=== PATIENT | female | born 1970 | race Caucasian/White ===

== ENCOUNTER 2017-05-16 19:30 | Emergency (ER) | payer MEDICARE ==
--- NOTE | 2017-05-16 21:12 | Cat Scan Report ---
FINAL REPORT PROCEDURE: CT HEAD/BRAIN WO CON TECHNIQUE: Computerized tomography of the head was performed without contrast material. HISTORY: neuro deficits \T\lt; 6hrs or sx present upon awakening COMPARISON: No prior studies are available for comparison. FINDINGS: Skull and scalp: Normal. Paranasal sinuses: Normal. Ventricles and subarachnoid spaces: Normal. Cerebrum: No evidence of hemorrhage, acute infarction or mass . Cerebellum and brainstem: No evidence of hemorrhage, acute infarction or mass. Vasculature: Normal. Comments: None. IMPRESSION: Normal Examination
[2017-05-16 21:39] LABS: Basophils % (Auto) 0.4 % (0.0-1.8); Eosinophils % (Auto) 0.7 % (0.0-4.3); Hematocrit 43.4 % (30.3-42.9); Hemoglobin 14.8 gm/dl (10.1-14.3); Mean Corpuscular HGB Conc 34 % (30-34); Mean Corpuscular Hemoglobin 33 pg (28-32); Mean Corpuscular Volume 97 fl (79-97); Platelet Count 220 K/mm3 (140-440); Red Blood Count 4.47 M/mm3 (3.65-5.03); Red Cell Distribution Width 13.2 % (13.2-15.2); White Blood Count 8.4 K/mm3 (4.5-11.0)
[2017-05-16 21:48] LABS: INR 1.05 (0.87-1.13); Partial Thromboplastin Time 27.2 Sec. (24.2-36.6)
[2017-05-16 21:51] LABS: Anion Gap 20 mmol/L; BUN/Creatinine Ratio 12.85; Blood Urea Nitrogen 9 mg/dL (7-17); Calcium 8.8 mg/dL (8.4-10.2); Carbon Dioxide 15 mmol/L (22-30); Chloride 109.7 mmol/L (98-107); Glucose 117 mg/dL (65-100); Potassium 3.8 mmol/L (3.6-5.0); Sodium 141 mmol/L (137-145)
[2017-05-17 06:31] VITALS: BP 118/94
--- NOTE | 2017-05-17 08:07 | Emergency Department Report ---
HPI - General Chief Complaint: Neuro Symptoms/Deficit Time Seen by Provider: 05/17/17 07:52 - HPI HPI: patient with left arm pain, numbness, back pain, neck pain, for about a year but worse this week. no fever, no n/v. ED Past Medical Hx - Past Medical History Previous Medical History?: Yes Hx Congestive Heart Failure: No Hx Diabetes: No Hx Headaches / Migraines: Yes Hx Psychiatric Treatment: Yes (depression, bipolar) Hx Asthma: No Hx COPD: No 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 - Surgical History Past Surgical History?: Yes Hx Appendectomy: Yes Additional Surgical History: back surguries, previous discectomy - Family History Family history: hypertension - Social History Smoking Status: Current Every Day Smoker Substance Use Type: None - Medications Home Medications: Home Medications Medication Instructions Recorded Confirmed Last Taken Type Duloxetine HCl [Cymbalta] 120 mg PO DAILY 02/17/14 05/17/17 05/16/17 History Meloxicam [Mobic] 7.5 mg PO BID 05/24/14 05/17/17 05/16/17 History Quetiapine Fumarate [Seroquel XR] 600 mg PO QHS 05/24/14 05/17/17 05/16/17 History Armodafinil [Nuvigil] 250 mg PO QAM 07/17/14 05/17/17 05/16/17 History Milnacipran HCl [Savella] 100 mg PO BID 07/17/14 05/17/17 05/16/17 History Primidone [Mysoline] 250 mg PO BID 07/17/14 05/17/17 05/16/17 History Tapentadol [Nucynta] 75 mg PO Q6H PRN 07/17/14 05/17/17 05/16/17 History Docusate Sodium [Colace] 100 mg PO QDAY 08/26/15 05/17/17 05/16/17 History Topiramate [Topamax] 200 mg PO QDAY 08/26/15 05/17/17 05/16/17 History Vit B12/Intrins Fact/FA Cmb #2 1 each PO BID 08/26/15 05/17/17 05/16/17 History [Intrinsi [id number] Tablet] Gabapentin Enacarbil [Horizant] 300 mg PO BID #60 tab-cap 05/17/17 Unknown Rx Propranolol [Inderal] 20 mg PO BID 05/17/17 05/17/17 05/16/17 History Vilazodone Hydrochloride [Viibryd] 40 mg PO QDAY 05/17/17 05/17/17 05/16/17 History ED Review of Systems ROS: Stated complaint: PAIN LF HAND Other details as noted in HPI Comment: All other systems reviewed and negative Endocrine: no symptoms reported Gastrointestinal: as per HPI Musculoskeletal: myalgia Physical Exam - Physical Exam Vital Signs: Vital Signs 05/16/17 05/17/17 05/17/17 20:34 05:17 06:27 Temperature 98.2 F Pulse Rate 69 76 78 Respiratory 18 18 Rate Blood Pressure 119/85 130/84 O2 Sat by Pulse 100 99 Oximetry 05/17/17 06:30 Temperature Pulse Rate 78 Respiratory 20 Rate Blood Pressure 118/94 O2 Sat by Pulse 95 Oximetry Physical Exam: - General Limitations: No Limitations General appearance: alert, in no apparent distress - Head Head exam: Present: atraumatic, normocephalic - Eye Eye exam: Present: normal appearance - ENT ENT exam: Present: mucous membranes moist - Neck Neck exam: Present: normal inspection - Respiratory Respiratory exam: Present: normal lung sounds bilaterally. Absent: respiratory distress - Cardiovascular Cardiovascular Exam: Present: regular rate, normal rhythm. Absent: systolic murmur, diastolic murmur, rubs, gallop - GI/Abdominal GI/Abdominal exam: Present: soft, normal bowel sounds - Extremities Exam Extremities exam: Present: normal inspection - Back Exam Back exam: Present: normal inspection - Neurological Exam Neurological exam: Present: alert, oriented X3, CN II-XII intact - Psychiatric Psychiatric exam: Present:normal affect - Skin Skin exam: Present: warm, dry, intact, normal color. Absent: rash ED Course Vital Signs 05/16/17 05/17/17 05/17/17 20:34 05:17 06:27 Temperature 98.2 F Pulse Rate 69 76 78 Respiratory 18 18 Rate Blood Pressure 119/85 130/84 O2 Sat by Pulse 100 99 Oximetry 05/17/17 06:30 Temperature Pulse Rate 78 Respiratory 20 Rate Blood Pressure 118/94 O2 Sat by Pulse 95 Oximetry ED Medical Decision Making - Lab Data Result diagrams: 05/16/17 21:14 05/16/17 21:14 Critical care attestation.: If time is entered above; I have spent that time in minutes in the direct care of this critically ill patient, excluding procedure time. ED Disposition Clinical Impression: Left arm pain Disposition: DC-01 TO HOME OR SELFCARE Is pt being admited?: No Does the pt Need Aspirin: No Condition: Stable Prescriptions: Gabapentin Enacarbil [Horizant] 300 mg PO BID #60 tab-cap Referrals: PRIMARY CARE, [Primary Care Provider] - 3-5 Days
== END 2017-05-17 08:26 | disposition home or self-care (01) ==
LOC: ED 19:30
DX: M79.602 Pain in left arm (principal); G43.909 Migraine, unspecified, not intractable, without status migrainosus; F31.9 Bipolar disorder, unspecified; G89.29 Other chronic pain; F17.200 Nicotine dependence, unspecified, uncomplicated
CPT/HCPCS: 36415; 70450; 80048; 84484; 85025; 85610; 85670; 85730; 93005; 93010

== ENCOUNTER 2017-09-16 11:45 | Emergency (ER) | payer MEDICARE ==
[2017-09-16] MEDS ORDERED: ROCEPHIN IM ONE (15:41)
[2017-09-16] MEDS ORDERED: XYLOCAINE 1% MPF 5 mL INFILTRATI ONE (15:41)
[2017-09-16] MEDS ORDERED: ULTRAM PO ONE (15:42)
--- NOTE | 2017-09-16 16:09 | Emergency Department Report ---
ED General Adult HPI - General Chief complaint: Skin/Abscess/Foreign Body Stated complaint: drainage at umbilicus Time Seen by Provider: 09/16/17 15:36 Source: patient, family Mode of arrival: Ambulatory Limitations: Language Barrier - History of Present Illness Initial comments: to er today w pain of r thigh muscle pain of r leg also co drainage of umbilicus likely due to body habitus obese -: Gradual Location: lower extremity Severity scale (0 -10): 5 Consistency: intermittent Improves with: none Worsens with: none Associated Symptoms: denies: confusion, chest pain, cough, diaphoresis, fever/ chills, headaches, loss of appetite, malaise, nausea/vomiting, rash, seizure, shortness of breath, syncope, weakness Treatments Prior to Arrival: none - Related Data Home Medications Medication Instructions Recorded Confirmed Last Taken Duloxetine HCl [Cymbalta] 120 mg PO DAILY 02/17/14 05/17/17 05/16/17 Meloxicam [Mobic] 7.5 mg PO BID 05/24/14 05/17/17 05/16/17 Quetiapine Fumarate [Seroquel XR] 600 mg PO QHS 05/24/14 05/17/17 05/16/17 Armodafinil [Nuvigil] 250 mg PO QAM 07/17/14 05/17/17 05/16/17 Milnacipran HCl [Savella] 100 mg PO BID 07/17/14 05/17/17 05/16/17 Primidone [Mysoline] 250 mg PO BID 07/17/14 05/17/17 05/16/17 Tapentadol [Nucynta] 75 mg PO Q6H PRN 07/17/14 05/17/17 05/16/17 Docusate Sodium [Colace] 100 mg PO QDAY 08/26/15 05/17/17 05/16/17 Topiramate [Topamax] 200 mg PO QDAY 08/26/15 05/17/17 05/16/17 Vit B12/Intrinsic Fact/Folate 1 each PO BID 08/26/15 05/17/17 05/16/17 [Intrinsi [id number]-[id number] Tablet] Propranolol [Inderal] 20 mg PO BID 05/17/17 05/17/17 05/16/17 Vilazodone HCl [Viibryd] 40 mg PO QDAY 05/17/17 05/17/17 05/16/17 Previous Rx's Medication Instructions Recorded Last Taken Type Gabapentin Enacarbil [Horizant] 300 mg PO BID #60 tab-cap 05/17/17 Unknown Rx Amoxicillin 500 mg PO BID #20 capsule 09/16/17 Unknown Rx traMADol [Ultram] 50 mg PO Q6HR PRN #12 tablet 09/16/17 Unknown Rx Allergies Allergy/AdvReac Type Severity Reaction Status Date / Time No Known Allergies Allergy Verified 09/16/17 12:43 ED Review of Systems ROS: Stated complaint: ABD PAIN Other details as noted in HPI Comment: All other systems reviewed and negative Gastrointestinal: other (pain and drainage of umbilicus) Musculoskeletal: other (l thigh pain) ED Past Medical Hx - Past Medical History Hx Congestive Heart Failure: No Hx Diabetes: No Hx Headaches / Migraines: Yes Hx Psychiatric Treatment: Yes (depression, bipolar) Hx Asthma: No Hx COPD: No 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 - Surgical History Hx Appendectomy: Yes Additional Surgical History: back surguries, previous discectomy - Social History Smoking Status: Current Every Day Smoker Substance Use Type: None - Medications Home Medications: Home Medications Medication Instructions Recorded Confirmed Last Taken Type Duloxetine HCl [Cymbalta] 120 mg PO DAILY 02/17/14 05/17/17 05/16/17 History Meloxicam [Mobic] 7.5 mg PO BID 05/24/14 05/17/17 05/16/17 History Quetiapine Fumarate [Seroquel XR] 600 mg PO QHS 05/24/14 05/17/17 05/16/17 History Armodafinil [Nuvigil] 250 mg PO QAM 07/17/14 05/17/17 05/16/17 History Milnacipran HCl [Savella] 100 mg PO BID 07/17/14 05/17/17 05/16/17 History Primidone [Mysoline] 250 mg PO BID 07/17/14 05/17/17 05/16/17 History Tapentadol [Nucynta] 75 mg PO Q6H PRN 07/17/14 05/17/17 05/16/17 History Docusate Sodium [Colace] 100 mg PO QDAY 08/26/15 05/17/17 05/16/17 History Topiramate [Topamax] 200 mg PO QDAY 08/26/15 05/17/17 05/16/17 History Vit B12/Intrinsic Fact/Folate 1 each PO BID 08/26/15 05/17/17 05/16/17 History [Intrinsi [id number]-[id number] Tablet] Gabapentin Enacarbil [Horizant] 300 mg PO BID #60 tab-cap 05/17/17 Unknown Rx Propranolol [Inderal] 20 mg PO BID 05/17/17 05/17/17 05/16/17 History Vilazodone HCl [Viibryd] 40 mg PO QDAY 05/17/17 05/17/17 05/16/17 History Amoxicillin 500 mg PO BID #20 capsule 09/16/17 Unknown Rx traMADol [Ultram] 50 mg PO Q6HR PRN #12 tablet 09/16/17 Unknown Rx ED Physical Exam - General Limitations: Language Barrier General appearance: alert - Head Head exam: Present: atraumatic - Eye Eye exam: Present: PERRL, EOMI - ENT ENT exam: Present: mucous membranes moist - Neck Neck exam: Present: normal inspection - Respiratory Respiratory exam: Present: normal lung sounds bilaterally - Cardiovascular Cardiovascular Exam: Present: regular rate (90 on exam) - GI/Abdominal GI/Abdominal exam: Present: soft, normal bowel sounds, other (obese). Absent: pulsatile mass, hernia - Rectal Rectal exam: Present: deferred - External exam: Present: normal external exam - Extremities Exam Extremities exam: Present: normal inspection, full ROM, tenderness (r thigh) - Expanded Upper Extremity Exam Right General: Present: other, normal inspection Shoulder Exam: Present: normal inspection Upper Arm exam: Present: normal inspection Elbow exam: Present: normal inspection - Expanded Lower Extremity Exam Right Hip exam: Present: normal inspection Upper Leg exam: Present: tenderness Knee exam: Present: normal inspection 1 - area of pain. no hernia. over muscle. no s/s infection. no trauma. no redness. no warmth - Back Exam Back exam: Present: normal inspection, full ROM. Absent: tenderness, CVA tenderness (R), CVA tenderness (L), muscle spasm, paraspinal tenderness, vertebral tenderness - Neurological Exam Neurological exam: Present: alert, oriented X3, CN II-XII intact, normal gait, reflexes normal - Psychiatric Psychiatric exam: Present: normal affect, normal mood - Skin Skin exam: Present: warm, dry, intact - Expanded Skin Exam Expanded 1 - red and draining area in obese fold. ED Course Vital Signs 09/16/17 09/16/17 12:43 16:23 Temperature 98.9 F 97.7 F Pulse Rate 105 H 74 Respiratory 18 18 Rate Blood Pressure 121/91 Blood Pressure 121/81 [Right] O2 Sat by Pulse 96 Oximetry ED Medical Decision Making - Lab Data Result diagrams: 09/16/17 16:02 09/16/17 16:02 - Medical Decision Making see note - Differential Diagnosis ro cellulitis Critical care attestation.: If time is entered above; I have spent that time in minutes in the direct care of this critically ill patient, excluding procedure time. ED Disposition Clinical Impression: Abscess and cellulitis, Thigh pain Disposition: TO HOME OR SELFCARE Is pt being admited?: No Does the pt Need Aspirin: No Condition: Stable Instructions: Musculoskeletal Pain (ED), Cellulitis (ED) Additional Instructions: keep umbilicus clean and dry wash with soap and water; but be sure you dry the area well the fact that this is in a fold and warm area between skin folds will make it hard to heal it must be kept clean med as ordered today follow up pcp on Tuesday - see below Referrals: PRIMARY CARE, [Primary Care Provider] - 3-5 Days SANDRA MILES MD [Staff Physician] - 3-5 Days Time of Disposition: 17:27
[2017-09-16 16:15] LABS: Basophils % (Auto) 0.6 % (0.0-1.8); Eosinophils # (Auto) 0.2 K/mm3 (0.0-0.4); Eosinophils % (Auto) 2.6 % (0.0-4.3); Hematocrit 42.4 % (30.3-42.9); Hemoglobin 14.5 gm/dl (10.1-14.3); Lymphocytes % (Auto) 30.2 % (13.4-35.0); Mean Corpuscular HGB Conc 34 % (30-34); Mean Corpuscular Hemoglobin 34 pg (28-32); Mean Corpuscular Volume 98 fl (79-97); Monocytes # (Auto) 0.3 K/mm3 (0.0-0.8); Monocytes % (Auto) 4.7 % (0.0-7.3); Platelet Count 268 K/mm3 (140-440); Red Blood Count 4.32 M/mm3 (3.65-5.03); Red Cell Distribution Width 12.6 % (13.2-15.2)
[2017-09-16 16:24] VITALS: BP 121/81
[2017-09-16 16:36] LABS: Alanine Aminotransferase 16 units/L (7-56); Albumin 4.1 g/dL (3.9-5); BUN/Creatinine Ratio 16; Blood Urea Nitrogen 11 mg/dL (7-17); Calcium 8.6 mg/dL (8.4-10.2); Hemolysis Index 8
== END 2017-09-16 17:48 | disposition home or self-care (01) ==
LOC: ED 11:45
DX: L02.216 Cutaneous abscess of umbilicus (principal); M79.651 Pain in right thigh; G43.909 Migraine, unspecified, not intractable, without status migrainosus; G89.29 Other chronic pain; F17.200 Nicotine dependence, unspecified, uncomplicated; Z98.890 Other specified postprocedural states
CPT/HCPCS: 36415; 80053; 85025; 96372; 99283; J0696

== ENCOUNTER 2019-02-02 02:05 | Inpatient (IN) | payer MEDICARE ==
[2019-02-02 02:51] LABS: Basophils % (Auto) 0.2 % (0.0-1.8); Eosinophils # (Auto) 0.1 K/mm3 (0.0-0.4); Eosinophils % (Auto) 0.4 % (0.0-4.3); Hematocrit 41.1 % (30.3-42.9); Hemoglobin 14.6 gm/dl (10.1-14.3); Lymphocytes # (Auto) 1.7 K/mm3 (1.2-5.4); Lymphocytes % (Auto) 11.3 % (13.4-35.0); Mean Corpuscular HGB Conc 35 % (30-34); Mean Corpuscular Volume 96 fl (79-97); Monocytes # (Auto) 0.9 K/mm3 (0.0-0.8); Monocytes % (Auto) 5.8 % (0.0-7.3); Platelet Count 242 K/mm3 (140-440); Red Blood Count 4.29 M/mm3 (3.65-5.03); Red Cell Distribution Width 12.7 % (13.2-15.2)
[2019-02-02 03:05] LABS: Bilirubin,Urine NEG (Negative); Blood,Urine LG (Negative); Color,Urine Yellow (Yellow); Mucus,Urine 1+ /HPF; Urobilinogen,Urine < 2.0 mg/dL (<2.0)
[2019-02-02 03:06] LABS: WBC,Urine > 182.0 /HPF (0.0-6.0)
[2019-02-02 03:10] LABS: Alanine Aminotransferase 69 units/L (7-56); Albumin 3.9 g/dL (3.9-5); BUN/Creatinine Ratio 7; Blood Urea Nitrogen 5 mg/dL (7-17); Calcium 8.5 mg/dL (8.4-10.2); Hemolysis Index 15
[2019-02-02] MEDS ORDERED: NACL 0.9% 1000 ML 1,000 ML IV ONE ×3 (04:07→17:00)
[2019-02-02] MEDS ORDERED: MORPHINE IV ONE (04:07)
[2019-02-02] MEDS ORDERED: ZOFRAN IV ONE ×2 (04:07→07:54)
--- NOTE | 2019-02-02 06:03 | Cat Scan Report ---
PROCEDURE: CT ABDOMEN PELVIS WO CON TECHNIQUE: Computerized axial tomography of the abdomen and pelvis was performed without intravenous contrast. This study is performed without intravascular contrast material and its sensitivity for ab dominal and pelvic pathology, including neoplasms, inflammation, abscess, free fluid, thrombosis, art erial dissection and infarction, is reduced compared with a contrast enhanced study. CT DOSE LENGTH PRODUCT: mGycm HISTORY: R flank pain COMPARISONS: None . FINDINGS: Visualized lower thorax: No significant abnormality. Liver: Normal size and attenuation. Spleen: Normal size and attenuation. Gallbladder and biliary system: There is cholelithiasis. The gallbladder wall is thickened. Findings suggest cholecystitis. There is no biliary ductal dilatation.. Pancreas: Normal. Adrenals: Normal. Kidneys: Normal. GI tract: There has been an appendectomy. There is no bowel obstruction, colitis or enteritis. . Lymph nodes and mesentery: Normal. Vasculature: Normal.. Bladder: Normal. Reproductive organs: Uterus is unremarkable. There is a 3 cm hypodense lesion in the cervix which cou ld be a large nabothian cyst.. Peritoneum: There is no ascites or free air, abscess or adenopathy.. Musculoskeletal structures: No significant abnormality. IMPRESSION: There is cholelithiasis with evidence of acute cholecystitis. There is no biliary ductal dilatation. There has been an appendectomy. There is no bowel obstruction, colitis or enteritis. . Uterus is unremarkable. There is a 3 cm hypodense lesion in the cervix which could be a large nabothi an cyst.. There is no ascites or free air, abscess or adenopathy.. . This document is electronically signed by Jermaine Ulrich MD., Feb 02 2019 06:01:08 AM ET
[2019-02-02] MEDS ORDERED: ZOSYN/NS 4.5GM/100ML 4.5 GM/100 ML VIAL IV ONE (06:18)
[2019-02-02] MEDS ORDERED: SUBLIMAZE IV ONE ×2 (06:45→07:54)
[2019-02-02 06:52] LABS: INR 1.09 (0.87-1.13)
[2019-02-02 06:53] LABS: Partial Thromboplastin Time 21.9 Sec. (24.2-36.6)
--- NOTE | 2019-02-02 08:08 | Emergency Department Report ---
ED Abdominal Pain HPI - General Chief Complaint: Abdominal Pain Stated Complaint: BACK PAIN Time Seen by Provider: 02/02/19 03:59 Source: patient Mode of arrival: Ambulatory Limitations: No Limitations, Language Barrier - History of Present Illness Initial Comments: This is a 48-year-old Tajik-speaking female. She tells me that she has had right upper quadrant pain for more than a day. It somewhat radiates posteriorly. The triage note states that there was some leg radiation but she is not complaining of this to me. He states he's been somewhat nauseated. She has no prior history of cholecystitis. Before I came her medical screening was positive for a CT consistent with cholecystitis and cholelithiasis. I do note she has urine consistent with UTI as well. Patient states she has no prior history of gallstones or previous workup. She a pparently went I believe at medical yesterday and did not have advanced imaging. She was discharged. He has history of bipolar disorder and chronic back pain as well. Perhaps her sciatica-type symptoms for the acute but most likely related to chronic back pain. She is not complaining of this to me at this time. The patient tells me that she has had prior back surgery and prior hernia surgery. However, her CT is read as prior appendectomy MD Complaint: abdominal pain -: Gradual Location: RUQ Radiation: R flank Migration to: no migration Severity scale (0 -10): 7 Quality: aching Consistency: constant Improves With: vomiting Worsens With: eating Associated Symptoms: nausea, vomiting, fever - Related Data Home Medications Medication Instructions Recorded Confirmed Last Taken Duloxetine HCl [Cymbalta] 120 mg PO DAILY 02/17/14 05/17/17 05/16/17 Meloxicam [Mobic] 7.5 mg PO BID 05/24/14 05/17/17 05/16/17 Quetiapine Fumarate [Seroquel XR] 600 mg PO QHS 05/24/14 05/17/17 05/16/17 Armodafinil [Nuvigil] 250 mg PO QAM 07/17/14 05/17/17 05/16/17 Milnacipran HCl [Savella] 100 mg PO BID 07/17/14 05/17/17 05/16/17 Primidone [Mysoline] 250 mg PO BID 07/17/14 05/17/17 05/16/17 Tapentadol [Nucynta] 75 mg PO Q6H PRN 07/17/14 05/17/17 05/16/17 Docusate Sodium [Colace] 100 mg PO QDAY 08/26/15 05/17/17 05/16/17 Topiramate [Topamax] 200 mg PO QDAY 08/26/15 05/17/17 05/16/17 Vit B12/Intrinsic Fact/Folate 1 each PO BID 08/26/15 05/17/17 05/16/17 [Intrinsi [id number] Tablet] Propranolol [Inderal] 20 mg PO BID 05/17/17 05/17/17 05/16/17 Vilazodone HCl [Viibryd] 40 mg PO QDAY 05/17/17 05/17/17 05/16/17 Previous Rx's Medication Instructions Recorded Last Taken Type Gabapentin Enacarbil [Horizant] 300 mg PO BID #60 tab-cap 05/17/17 Unknown Rx Amoxicillin 500 mg PO BID #20 capsule 09/16/17 Unknown Rx traMADol [Ultram] 50 mg PO Q6HR PRN #12 tablet 09/16/17 Unknown Rx Allergies Allergy/AdvReac Type Severity Reaction Status Date / Time No Known Allergies Allergy Verified 09/16/17 12:43 ED Review of Systems ROS: Stated complaint: BACK PAIN Other details as noted in HPI Constitutional: denies: chills, fever Eyes: denies: eye pain, eye discharge, vision change ENT: denies: ear pain, throat pain Respiratory: denies: cough, shortness of breath, wheezing Cardiovascular: denies: chest pain, palpitations Endocrine: no symptoms reported Gastrointestinal: abdominal pain, nausea, vomiting. denies: diarrhea Genitourinary: denies: urgency, dysuria, discharge Musculoskeletal: back pain. denies: joint swelling, arthralgia Skin: denies: rash, lesions Neurological: denies: headache, weakness, paresthesias Psychiatric: denies: anxiety, depression Hematological/Lymphatic: denies: easy bleeding, easy bruising ED Past Medical Hx - Past Medical History Previous Medical History?: Yes Hx Congestive Heart Failure: No Hx Diabetes: No Hx Headaches / Migraines: Yes Hx Psychiatric Treatment: Yes (depression, bipolar) Hx Asthma: No Hx COPD: No 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 - Surgical History Past Surgical History?: Yes Hx Appendectomy: Yes Additional Surgical History: back surguries, previous discectomy - Social History Smoking Status: Former Smoker Substance Use Type: None - Medications Home Medications: Home Medications Medication Instructions Recorded Confirmed Last Taken Type Duloxetine HCl [Cymbalta] 120 mg PO DAILY 02/17/14 05/17/17 05/16/17 History Meloxicam [Mobic] 7.5 mg PO BID 05/24/14 05/17/17 05/16/17 History Quetiapine Fumarate [Seroquel XR] 600 mg PO QHS 05/24/14 05/17/17 05/16/17 History Armodafinil [Nuvigil] 250 mg PO QAM 07/17/14 05/17/17 05/16/17 History Milnacipran HCl [Savella] 100 mg PO BID 07/17/14 05/17/17 05/16/17 History Primidone [Mysoline] 250 mg PO BID 07/17/14 05/17/17 05/16/17 History Tapentadol [Nucynta] 75 mg PO Q6H PRN 07/17/14 05/17/17 05/16/17 History Docusate Sodium [Colace] 100 mg PO QDAY 08/26/15 05/17/17 05/16/17 History Topiramate [Topamax] 200 mg PO QDAY 08/26/15 05/17/17 05/16/17 History Vit B12/Intrinsic Fact/Folate 1 each PO BID 08/26/15 05/17/17 05/16/17 History [Intrinsi [id number] Tablet] Gabapentin Enacarbil [Horizant] 300 mg PO BID #60 tab-cap 05/17/17 Unknown Rx Propranolol [Inderal] 20 mg PO BID 05/17/17 05/17/17 05/16/17 History Vilazodone HCl [Viibryd] 40 mg PO QDAY 05/17/17 05/17/17 05/16/17 History Amoxicillin 500 mg PO BID #20 capsule 09/16/17 Unknown Rx traMADol [Ultram] 50 mg PO Q6HR PRN #12 tablet 09/16/17 Unknown Rx ED Physical Exam - General Limitations: No Limitations, Language Barrier General appearance: alert, in no apparent distress - Head Head exam: Present: atraumatic, normocephalic - Eye Eye exam: Present: normal appearance. Absent: scleral icterus - ENT ENT exam: Present: mucous membranes moist - Neck Neck exam: Present: normal inspection - Respiratory Respiratory exam: Present: normal lung sounds bilaterally. Absent: respiratory distress - Cardiovascular Cardiovascular Exam: Present: regular rate, normal rhythm. Absent: systolic murmur, diastolic murmur, rubs, gallop - GI/Abdominal GI/Abdominal exam: Present: soft, distended (mildly), tenderness (significant right upper quadrant tenderness positive Vanegas's), guarding (mild voluntary), normal bowel sounds. Absent: rebound (positive Vanegas's only), rigid - Extremities Exam Extremities exam: Present: normal inspection - Back Exam Back exam: Present: normal inspection. Absent: tenderness, CVA tenderness (L), muscle spasm, paraspinal tenderness - Neurological Exam Neurological exam: Present: alert, oriented X3, CN II-XII intact. Absent: motor sensory deficit - Psychiatric Psychiatric exam: Present: normal affect, normal mood - Skin Skin exam: Present: warm, dry, intact, normal color. Absent: rash ED Course Vital Signs 02/02/19 02/02/19 02/02/19 02:13 04:01 05:20 Temperature 98.8 F Pulse Rate 68 Respiratory 16 20 Rate Blood Pressure 144/82 Blood Pressure [Right] O2 Sat by Pulse 100 99 Oximetry 02/02/19 02/02/19 02/02/19 05:58 06:00 07:46 Temperature Pulse Rate 82 Respiratory 18 Rate Blood Pressure 163/81 170/86 Blood Pressure 131/62 [Right] O2 Sat by Pulse 98 96 100 Oximetry - Reevaluation(s) Reevaluation #1: Patient given IV fluids and Zosyn. She is given antiemetics and analgesia. She will be admitted to Dr. Fowler on the to the hospitalist service. Surgeon paged Dr. Calderon for consultation. 02/02/19 08:09 Reevaluation #2: Discussed with Dr. Calderon. He will see patient and order an ultrasound if necessary. Agrees with workup and plan. 02/02/19 08:17 ED Medical Decision Making - Lab Data Result diagrams: 02/02/19 02:25 02/02/19 02:25 Laboratory Results - last 24 hr 05/02/02/19 02/02/19 02:22 02:25 02:25 WBC 15.3 H RBC 4.29 Hgb 14.6 H Hct 41.1 MCV 96 MCH 34 H MCHC 35 H RDW 12.7 L Plt Count 242 Lymph % (Auto) 11.3 L [place] % (Auto) 5.8 Eos % (Auto) 0.4 Baso % (Auto) 0.2 Lymph # 1.7 [place] # 0.9 H Eos # 0.1 Baso # 0.0 Seg Neutrophils % 82.3 H Seg Neutrophils # 12.6 H PT INR APTT Sodium Potassium Chloride Carbon Dioxide Anion Gap BUN Creatinine Estimated GFR BUN/Creatinine Ratio Glucose Calcium Total Bilirubin AST ALT Alkaline Phosphatase Total Protein Albumin Albumin/Globulin Ratio Lipase 12 L HCG, Qual Urine Color Yellow Urine Turbidity Cloudy Urine pH 5.0 Ur Specific [place] 1.015 Urine Protein 30 mg/dl Urine Glucose (UA) Neg Urine Ketones Neg Urine Blood Lg Urine Nitrite Neg Urine Bilirubin Neg Urine Urobilinogen < 2.0 Ur Leukocyte Esterase Lg Urine WBC (Auto) > 182.0 H Urine RBC (Auto) 67.0 U Epithel Cells (Auto) 6.0 Urine Mucus 1+ Blood Type Antibody Screen 02/02/19 02/02/19 02/02/19 02:25 02:25 06:23 WBC RBC Hgb Hct MCV MCH MCHC RDW Plt Count Lymph % (Auto) [place] % (Auto) Eos % (Auto) Baso % (Auto) Lymph # [place] # Eos # Baso # Seg Neutrophils % Seg Neutrophils # PT 14.8 INR 1.09 APTT 21.9 L Sodium 135 L Potassium 3.9 Chloride 99.4 Carbon Dioxide 21 L Anion Gap 19 BUN 5 L Creatinine 0.7 Estimated GFR > 60 BUN/Creatinine Ratio 7 Glucose 165 H Calcium 8.5 Total Bilirubin 0.90 AST 59 H ALT 69 H Alkaline Phosphatase 64 Total Protein 6.9 Albumin 3.9 Albumin/Globulin Ratio 1.3 Lipase HCG, Qual Negative Urine Color Urine Turbidity Urine pH Ur Specific [place] Urine Protein Urine Glucose (UA) Urine Ketones Urine Blood Urine Nitrite Urine Bilirubin Urine Urobilinogen Ur Leukocyte Esterase Urine WBC (Auto) Urine RBC (Auto) U Epithel Cells (Auto) Urine Mucus Blood Type Antibody Screen 02/02/19 06:23 WBC RBC Hgb Hct MCV MCH MCHC RDW Plt Count Lymph % (Auto) [place] % (Auto) Eos % (Auto) Baso % (Auto) Lymph # [place] # Eos # Baso # Seg Neutrophils % Seg Neutrophils # PT INR APTT Sodium Potassium Chloride Carbon Dioxide Anion Gap BUN Creatinine Estimated GFR BUN/Creatinine Ratio Glucose Calcium Total Bilirubin AST ALT Alkaline Phosphatase Total Protein Albumin Albumin/Globulin Ratio Lipase HCG, Qual Urine Color Urine Turbidity Urine pH Ur Specific [place] Urine Protein Urine Glucose (UA) Urine Ketones Urine Blood Urine Nitrite Urine Bilirubin Urine Urobilinogen Ur Leukocyte Esterase Urine WBC (Auto) Urine RBC (Auto) U Epithel Cells (Auto) Urine Mucus Blood Type O POSITIVE Antibody Screen Negative - EKG Data -: EKG Interpreted by Me (pending) - Radiology Data Radiology results: report reviewed (CT consistent with cholelithiasis and cholecystitis and a normal common bile duct. Prior appendectomy.) Critical care attestation.: If time is entered above; I have spent that time in minutes in the direct care of this critically ill patient, excluding procedure time. ED Disposition Clinical Impression: Acute cholecystitis, Hyperglycemia UTI (urinary tract infection) Qualifiers: Urinary tract infection type: site unspecified Hematuria presence: without hematuria Qualified Code(s): N39.0 - Urinary tract infection, site not specified Bipolar disorder Qualifiers: Active/Remission status: in remission of unspecified degree Qualified Code(s): F31.70 - Bipolar disorder, currently in remission, most recent episode unspecified Disposition: OP ADMIT IP TO THIS HOSP Is pt being admited?: Yes Does the pt Need Aspirin: No Condition: Stable Instructions: Abdominal Pain (ED) Referrals: DALY ZHONG MD [Primary Care Provider] - 3-5 Days Time of Disposition: 08:18
--- NOTE | 2019-02-02 08:39 | XRay Report ---
AP CHEST: HISTORY: Hypertension AP view of the chest demonstrates a normal mediastinal and cardiac contour with clear lungs and normal bony and soft tissue structures. IMPRESSION: Unremarkable AP chest.
[2019-02-02] MEDS ORDERED: DILAUDID IV ONE ×2 (09:06→17:00)
[2019-02-02] MEDS ORDERED: DILAUDID ONE (09:15)
[2019-02-02] MEDS ORDERED: NUCYNTA PO PRN (09:29)
[2019-02-02] MEDS ORDERED: ULTRAM PO PRN (09:29)
--- NOTE | 2019-02-02 09:29 | History and Physical Report ---
History of Present Illness Date of examination: 02/02/19 Date of admission: 02/02/19 08:19 Chief complaint: abdominal pain History of present illness: This is a 48-year-old Monegasque-speaking female with a history of depression, bipolar disorder and chronic back pain presented to the hospital with complaints of right upper quadrant pain for more than a day, intensity very sharp 10 out of 10, mostly located right upper quadrant, radiates posteriorly and going downw ards to her groin. She also complained of nausea and vomiting. CT abdomen and pelvis consistent with cholecystitis and cholelithiasis. she has urine consistent with UTI as well. Patient states she has no prior history of gallstones or previous workup. No report of spiking fever. Initial workup also showed elevated white count, lactic acid pending. Patient is getting admitted for further evaluation and management. - Past Medical History Previous Medical History?: Yes Hx Congestive Heart Failure: No Hx Diabetes: No Hx Headaches / Migraines: Yes Hx Psychiatric Treatment: Yes (depression, bipolar) Hx Asthma: No Hx COPD: No 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 - Surgical History Past Surgical History?: Yes Hx Appendectomy: Yes Additional Surgical History: back surguries, previous discectomy - Social History Smoking Status: Former Smoker Substance Use Type: None - Family history No significant history of cardiac disease, cancer or stroke Review of Systems Constitutional: denies: chills, fever Eyes: denies: eye pain, eye discharge, vision change ENT: denies: ear pain, throat pain Respiratory: denies: cough, shortness of breath, wheezing Cardiovascular: denies: chest pain, palpitations Endocrine: no symptoms reported Gastrointestinal: abdominal pain, nausea, vomiting. denies: diarrhea Genitourinary: denies: urgency, dysuria, discharge Musculoskeletal: back pain. denies: joint swelling, arthralgia Skin: denies: rash, lesions Neurological: denies: headache, weakness, paresthesias Psychiatric: denies: anxiety, depression Hematological/Lymphatic: denies: easy bleeding, easy bruising Medications and Allergies Allergies Allergy/AdvReac Type Severity Reaction Status Date / Time No Known Allergies Allergy Verified 09/16/17 12:43 Home Medications Medication Instructions Recorded Confirmed Last Taken Type Duloxetine HCl [Cymbalta] 120 mg PO DAILY 02/17/14 05/17/17 05/16/17 History Meloxicam [Mobic] 7.5 mg PO BID 05/24/14 05/17/17 05/16/17 History Quetiapine Fumarate [Seroquel XR] 600 mg PO QHS 05/24/14 05/17/17 05/16/17 History Armodafinil [Nuvigil] 250 mg PO QAM 07/17/14 05/17/17 05/16/17 History Milnacipran HCl [Savella] 100 mg PO BID 07/17/14 05/17/17 05/16/17 History Primidone [Mysoline] 250 mg PO BID 07/17/14 05/17/17 05/16/17 History Tapentadol [Nucynta] 75 mg PO Q6H PRN 07/17/14 05/17/17 05/16/17 History Docusate Sodium [Colace] 100 mg PO QDAY 08/26/15 05/17/17 05/16/17 History Topiramate [Topamax] 200 mg PO QDAY 08/26/15 05/17/17 05/16/17 History Vit B12/Intrinsic Fact/Folate 1 each PO BID 08/26/15 05/17/17 05/16/17 History [Intrinsi [id number] Tablet] Gabapentin Enacarbil [Horizant] 300 mg PO BID #60 tab-cap 05/17/17 Unknown Rx Propranolol [Inderal] 20 mg PO BID 05/17/17 05/17/17 05/16/17 History Vilazodone HCl [Viibryd] 40 mg PO QDAY 05/17/17 05/17/17 05/16/17 History Amoxicillin 500 mg PO BID #20 capsule 09/16/17 Unknown Rx traMADol [Ultram] 50 mg PO Q6HR PRN #12 tablet 09/16/17 Unknown Rx Exam - Physical Exam Narrative exam: GENERAL: well-developed and obese female lying on bed appeared to be in no discomfort. HEENT: Normocephalic. Atraumatic. No conjunctival congestion or icterus. Patient has moist mucous membranes. NECK: Supple. Trachea midline. CHEST/LUNGS: Clear to auscultated bilaterally, breathing nonlabored. No wheezes crackles or rhonchi. HEART/CARDIOVASCULAR: Regular in rate and rhythm. S1 and S2 positive. ABDOMEN: Right upper quadrant tenderness with guarding, positive for bowel sounds, no mass SKIN: There is no rash. Warm and dry. NEURO: No focal motor deficit. Follows command. MUSCULOSKELETAL: No joint effusion or tenderness. EXTRIMITY: No edema, no cyanosis or clubbing. PSYCH: Cooperative. - Constitutional Vitals: Temp Pulse Resp BP Pulse Ox 98.9 F 72 18 132/66 100 02/02/19 09:21 02/02/19 09:21 02/02/19 09:21 02/02/19 09:21 02/02/19 09:21 Results - Labs CBC & Chem 7: 02/03/19 05:48 02/03/19 05:48 Labs: Abnormal lab results 02/02/19 02/02/19 02/02/19 Range/Units 02:22 02:25 02:25 WBC 15.3 H (4.5-11.0) K/mm3 Hgb 14.6 H (10.1-14.3) gm/dl MCH 34 H (28-32) pg MCHC 35 H (30-34) % RDW 12.7 L (13.2-15.2) % Lymph % (Auto) 11.3 L (13.4-35.0) % [place] # 0.9 H (0.0-0.8) K/mm3 Seg Neutrophils % 82.3 H (40.0-70.0) % Seg Neutrophils # 12.6 H (1.8-7.7) K/mm3 APTT (24.2-36.6) Sec. Sodium (137-145) mmol/L Carbon Dioxide (22-30) mmol/L BUN (7-17) mg/dL Glucose (65-100) mg/dL AST (5-40) units/L ALT (7-56) units/L Lipase 12 L (13-60) units/L Urine WBC (Auto) > 182.0 H (0.0-6.0) /HPF 02/02/19 02/02/19 Range/Units 02:25 06:23 WBC (4.5-11.0) K/mm3 Hgb (10.1-14.3) gm/dl MCH (28-32) pg MCHC (30-34) % RDW (13.2-15.2) % Lymph % (Auto) (13.4-35.0) % [place] # (0.0-0.8) K/mm3 Seg Neutrophils % (40.0-70.0) % Seg Neutrophils # (1.8-7.7) K/mm3 APTT 21.9 L (24.2-36.6) Sec. Sodium 135 L (137-145) mmol/L Carbon Dioxide 21 L (22-30) mmol/L BUN 5 L (7-17) mg/dL Glucose 165 H (65-100) mg/dL AST 59 H (5-40) units/L ALT 69 H (7-56) units/L Lipase (13-60) units/L Urine WBC (Auto) (0.0-6.0) /HPF - Imaging and Cardiology CT scan - abdomen: report reviewed Assessment and Plan Acute right upper quadrant abdominal pain - Likely from acute cholecystitis - Continue supportive care with IV fluid, IV antibiotics - Keep nothing by mouth, pain medications as needed - Consult to Gen. surgery for further recommendations UTI, obtained culture, continue antibiotics History of depression and bipolar disorder - Resume home medications, psych consult if needed Chronic back pain, as needed pain meds DVT prophylaxis, Lovenox/SCD Radiological data: CT abdomen and pelvis: Cholelithiasis with evidence of acute cholecystitis
[2019-02-02] MEDS ORDERED: VIT B12 PO SCH (10:00)
[2019-02-02] MEDS ORDERED: ARMODAFINIL 250 MG PO SCH (10:00)
[2019-02-02] MEDS ORDERED: GABAPENTIN ENACARBIL 300 MG PO SCH (10:00)
[2019-02-02] MEDS ORDERED: FOLATE PO SCH (10:00)
[2019-02-02] MEDS ORDERED: TOPAMAX PO SCH (10:00)
[2019-02-02] MEDS ORDERED: NON-FORMULARY (Vilazodone Hcl [Viibryd] 40 MG) PO SCH (10:00)
[2019-02-02] MEDS ORDERED: MILNACIPRAN HCL 100 MG PO SCH (10:00)
[2019-02-02] MEDS ORDERED: INTRINSIC FACT PO SCH (10:00)
[2019-02-02] MEDS: MORPHINE IV PRN (11:13)
[2019-02-02] MEDS ORDERED: APRESOLINE IV PRN (11:43)
[2019-02-02] MEDS: ROCEPHIN/NS 1 GM/50 ML 1 GM/50 ML BAG IV SCH ×2 (11:59→22:20)
[2019-02-02] MEDS: DILAUDID IV PRN (12:28)
[2019-02-02] MEDS: INDERAL PO SCH ×2 (12:37→22:24)
[2019-02-02] MEDS: MYSOLINE PO SCH ×2 (12:38→22:23)
[2019-02-02] MEDS ORDERED: NORCO 5/325 PO PRN (16:07)
--- NOTE | 2019-02-02 16:49 | Consultation ---
History of Present Illness Consult date: 02/02/19 Reason for consult: abdominal pain Requesting physician: LILIYA MORALES Chief complaint: abdominal pain x 5 days - History of present illness History of present illness: 48yo F with history of chronic back pain who presents to the emergency room with a 5 day history of abdominal pain. Reports fevers and chills. Denies nausea or vomiting. Has been eating without difficulty. Has been having pain with urination. Reports bloating. She denies any history of postprandial symptoms. ER evaluation revealed a thickened, enlarged gallbladder. General surgery was asked to see the patient for possible cholecystitis. Patient is Thai-speaking. I spoke with her through the telephone american sign language interpreter #[id number]. Past History Past Medical History: hypertension, other (chronic back pain, depression) Past Surgical History: appendectomy, hernia repair, Other (multiple back surgeries) Social history: denies: smoking (stopped), alcohol abuse Family history: no significant family history Medications and Allergies Allergies Allergy/AdvReac Type Severity Reaction Status Date / Time No Known Allergies Allergy Verified 09/16/17 12:43 Home Medications Medication Instructions Recorded Confirmed Last Taken Type Duloxetine HCl [Cymbalta] 120 mg PO DAILY 02/17/14 05/17/17 05/16/17 History Meloxicam [Mobic] 7.5 mg PO BID 05/24/14 05/17/17 05/16/17 History Quetiapine Fumarate [Seroquel XR] 600 mg PO QHS 05/24/14 05/17/17 05/16/17 History Armodafinil [Nuvigil] 250 mg PO QAM 07/17/14 05/17/17 05/16/17 History Milnacipran HCl [Savella] 100 mg PO BID 07/17/14 05/17/17 05/16/17 History Primidone [Mysoline] 250 mg PO BID 07/17/14 05/17/17 05/16/17 History Tapentadol [Nucynta] 75 mg PO Q6H PRN 07/17/14 05/17/17 05/16/17 History Docusate Sodium [Colace] 100 mg PO QDAY 08/26/15 05/17/17 05/16/17 History Topiramate [Topamax] 200 mg PO QDAY 08/26/15 05/17/17 05/16/17 History Vit B12/Intrinsic Fact/Folate 1 each PO BID 08/26/15 05/17/17 05/16/17 History [Intrinsi H13-[id number] Tablet] Gabapentin Enacarbil [Horizant] 300 mg PO BID #60 tab-cap 05/17/17 Unknown Rx Propranolol [Inderal] 20 mg PO BID 05/17/17 05/17/17 05/16/17 History Vilazodone HCl [Viibryd] 40 mg PO QDAY 05/17/17 05/17/17 05/16/17 History Amoxicillin 500 mg PO BID #20 capsule 09/16/17 Unknown Rx traMADol [Ultram] 50 mg PO Q6HR PRN #12 tablet 09/16/17 Unknown Rx Active Meds: Active Medications Acetaminophen/Hydrocodone Bitart ([place] 5/325) 2 each PO Q6H PRN PRN Reason: Pain, Moderate (4-6) Docusate Sodium (Colace) 100 mg PO QDAY TIFF Hydralazine HCl (Apresoline) 5 mg IV Q30MIN PRN PRN Reason: Hypertension Hydromorphone HCl (Dilaudid) 2 mg IV Q3H PRN PRN Reason: Pain , Severe (7-10) Last Admin: 02/02/19 12:28 Dose: 2 mg Documented by: Hydromorphone HCl (Dilaudid) 1 mg IV ONCE ONE Stop: 02/02/19 17:01 Ceftriaxone Sodium (Rocephin/Ns 1 Gm/50 Ml) 1 gm in 50 mls @ 100 mls/hr IV Q12HR TIFF; Protocol Last Admin: 02/02/19 11:59 Dose: 100 mls/hr Documented by: Dextrose/Sodium Chloride (D5ns) 1,000 mls @ 150 mls/hr IV DIRECT TIFF Sodium Chloride (Nacl 0.9% 1000 Ml) 1,000 mls @ 999 mls/hr IV BOLUS ONE Stop: 02/02/19 18:00 Ketorolac Tromethamine (Toradol) 30 mg IV Q6HR TIFF Stop: 02/07/19 17:59 Miscellaneous Medication (Armodafinil [Nuvigil]) 250 mg PO QAM TIFF Miscellaneous Medication (Duloxetine Hcl [Cymbalta]) 120 mg PO DAILY TIFF Miscellaneous Medication (Gabapentin Enacarbil [Horizant]) 300 mg PO BID [facility] Miscellaneous Medication (Milnacipran Hcl [Savella]) 100 mg PO BID [facility] Miscellaneous Medication (Quetiapine Fumarate [Seroquel Xr]) 600 mg PO QHS [facility] Miscellaneous Medication (Vilazodone Hcl [Viibryd]) 40 mg PO QDAY [facility] Miscellaneous Medication (Vit B12/Intrinsic Fact/Folate [Intrinsi M33-Lkpybd Tablet]) 1 each PO BID [facility] Morphine Sulfate (Morphine) 2 mg IV Q4H PRN PRN Reason: Pain, Moderate (4-6) Last Admin: 02/02/19 11:13 Dose: 2 mg Documented by: Primidone (Mysoline) 250 mg PO BID [facility] Last Admin: 02/02/19 12:38 Dose: 250 mg Documented by: Propranolol HCl (Inderal) 20 mg PO BID [facility] Last Admin: 02/02/19 12:37 Dose: 20 mg Documented by: Tapentadol (Nucynta) 75 mg PO Q6H PRN PRN Reason: Pain Topiramate (Topamax) 200 mg PO QDAY [facility] Review of Systems - Constitutional fever, chills, chronic pain - Cardiovascular no chest pain, no shortness of breath - Respiratory no cough - Gastrointestinal abdominal pain, dyspepsia/bloating, no nausea, no vomiting, no hematemesis, no coffee ground emesis, no BRBPR, no melena, no hematochezia - Genitourinary Genitourinary: dysuria - Muskuloskeletal low back pain Exam Vital Signs Temp Pulse Resp BP Pulse Ox 98.8 F 68 16 144/82 100 02/02/19 02:13 02/02/19 02:13 02/02/19 02:13 02/02/19 02:13 02/02/19 02:13 - General physical appearance Positive: no distress, moderate pain, other (overweight) - Eyes Positive: normal occular movement. Negative: icteric - Respiratory Positive: normal expansion, normal respiratory effort, clear to auscultation - Cardiovascular Rhythm: regular - Abdomen Abdomen: Present: soft, tender (in RUQ and suprapubic areas mainly), bowel sounds hypoactive, surgical scars (well healed. main one is transverse suprapubic scar). Absent: distended, guarding, rigid, wound - Integumentary no rash, no growths, no abnormal pigmentation - Neurologic Neurologic: alert and oriented to time, place and person, motor strength and se nsation are grossly intact - Psychiatric Psychiatric: appropriate mood/affect, intact judgment & insight Results - Labs 02/02/19 02:25 02/02/19 02:25 Abnormal lab results 02/02/19 02/02/19 02/02/19 Range/Units 02:22 02:25 02:25 WBC 15.3 H (4.5-11.0) K/mm3 Hgb 14.6 H (10.1-14.3) gm/dl MCH 34 H (28-32) pg MCHC 35 H (30-34) % RDW 12.7 L (13.2-15.2) % Lymph % (Auto) 11.3 L (13.4-35.0) % [place] # 0.9 H (0.0-0.8) K/mm3 Seg Neutrophils % 82.3 H (40.0-70.0) % Seg Neutrophils # 12.6 H (1.8-7.7) K/mm3 APTT (24.2-36.6) Sec. Sodium (137-145) mmol/L Carbon Dioxide (22-30) mmol/L BUN (7-17) mg/dL Glucose (65-100) mg/dL AST (5-40) units/L ALT (7-56) units/L Lipase 12 L (13-60) units/L Urine WBC (Auto) > 182.0 H (0.0-6.0) /HPF 02/02/19 02/02/19 Range/Units 02:25 06:23 WBC (4.5-11.0) K/mm3 Hgb (10.1-14.3) gm/dl MCH (28-32) pg MCHC (30-34) % RDW (13.2-15.2) % Lymph % (Auto) (13.4-35.0) % [place] # (0.0-0.8) K/mm3 Seg Neutrophils % (40.0-70.0) % Seg Neutrophils # (1.8-7.7) K/mm3 APTT 21.9 L (24.2-36.6) Sec. Sodium 135 L (137-145) mmol/L Carbon Dioxide 21 L (22-30) mmol/L BUN 5 L (7-17) mg/dL Glucose 165 H (65-100) mg/dL AST 59 H (5-40) units/L ALT 69 H (7-56) units/L Lipase (13-60) units/L Urine WBC (Auto) (0.0-6.0) /HPF Diabetes panel 02/02/19 Range/Units 02:25 Sodium 135 L (137-145) mmol/L Potassium 3.9 (3.6-5.0) mmol/L Chloride 99.4 (98-107) mmol/L Carbon Dioxide 21 L (22-30) mmol/L BUN 5 L (7-17) mg/dL Creatinine 0.7 (0.7-1.2) mg/dL Glucose 165 H (65-100) mg/dL Calcium 8.5 (8.4-10.2) mg/dL AST 59 H (5-40) units/L ALT 69 H (7-56) units/L Alkaline Phosphatase 64 (35-129) units/L Total Protein 6.9 (6.3-8.2) g/dL Albumin 3.9 (3.9-5) g/dL Calcium panel 02/02/19 Range/Units 02:25 Calcium 8.5 (8.4-10.2) mg/dL Albumin 3.9 (3.9-5) g/dL Pituitary panel 02/02/19 Range/Units 02:25 Sodium 135 L (137-145) mmol/L Potassium 3.9 (3.6-5.0) mmol/L Chloride 99.4 (98-107) mmol/L Carbon Dioxide 21 L (22-30) mmol/L BUN 5 L (7-17) mg/dL Creatinine 0.7 (0.7-1.2) mg/dL Glucose 165 H (65-100) mg/dL Calcium 8.5 (8.4-10.2) mg/dL Adrenal panel 02/02/19 Range/Units 02:25 Sodium 135 L (137-145) mmol/L Potassium 3.9 (3.6-5.0) mmol/L Chloride 99.4 (98-107) mmol/L Carbon Dioxide 21 L (22-30) mmol/L BUN 5 L (7-17) mg/dL Creatinine 0.7 (0.7-1.2) mg/dL Glucose 165 H (65-100) mg/dL Calcium 8.5 (8.4-10.2) mg/dL Total Bilirubin 0.90 (0.1-1.2) mg/dL AST 59 H (5-40) units/L ALT 69 H (7-56) units/L Alkaline Phosphatase 64 (35-129) units/L Total Protein 6.9 (6.3-8.2) g/dL Albumin 3.9 (3.9-5) g/dL - Imaging CT scan - abdomen: report reviewed, image reviewed CT scan - pelvis: report reviewed, image reviewed Assessment and Plan - Patient Problems (1) Acute cholecystitis Current Visit: Yes Status: Acute Plan to address problem: Pt stable. Patient in need of resuscitation and treatment of UTI. This was explained via the phone american sign language interpreter. I would like her to get antibiotics to calm the gallbladder down as well as to treat the urinary tract infection. We have an increased risk for surgical site infection secondary to an active UTI. Patient also has a chronic pain condition. I expect that postoperatively she will have pain management issues. Procedure, risks, benefits were discussed by the phone american sign language interpreter. All questions were answered. Consent was obtained. Time=45min (2) Urinary tract infection Current Visit: Yes Status: Acute Qualifiers: Urinary tract infection type: site unspecified Hematuria presence: without hematuria Qualified Code(s): N39.0 - Urinary tract infection, site not specified Plan to address problem: Pt stable. Need to treat the UTI before we take her for cholecystectomy. IV antibiotics are currently being given.
[2019-02-02] MEDS: COLACE PO SCH (18:07)
[2019-02-02] MEDS: TORADOL IV SCH (19:57)
[2019-02-02] MEDS: D5NS 1,000 ML IV SCH (20:04)
[2019-02-02] MEDS: CYMBALTA PO SCH (21:20)
[2019-02-02] MEDS ORDERED: QUETIAPINE FUMARATE 600 MG PO SCH (22:00)
[2019-02-03] MEDS: TORADOL IV SCH ×4 (00:58→18:25)
[2019-02-03] MEDS: D5NS 1,000 ML IV SCH ×3 (03:33→18:25)
[2019-02-03 06:21] LABS: Basophils # (Auto) 0.1 K/mm3 (0.0-0.1); Basophils % (Auto) 0.3 % (0.0-1.8); Eosinophils % (Auto) 0.3 % (0.0-4.3); Hematocrit 38.2 % (30.3-42.9); Hemoglobin 13.2 gm/dl (10.1-14.3); Lymphocytes # (Auto) 1.6 K/mm3 (1.2-5.4); Lymphocytes % (Auto) 9.2 % (13.4-35.0); Mean Corpuscular HGB Conc 35 % (30-34); Mean Corpuscular Volume 98 fl (79-97); Monocytes # (Auto) 0.7 K/mm3 (0.0-0.8); Monocytes % (Auto) 4.2 % (0.0-7.3); Platelet Count 179 K/mm3 (140-440); Red Blood Count 3.89 M/mm3 (3.65-5.03); Red Cell Distribution Width 12.8 % (13.2-15.2)
[2019-02-03 06:24] LABS: Alanine Aminotransferase 84 units/L (7-56); Albumin 3.4 g/dL (3.9-5); BUN/Creatinine Ratio 8; Blood Urea Nitrogen 4 mg/dL (7-17); Hemolysis Index 4
[2019-02-03] MEDS: DILAUDID IV PRN (09:11)
[2019-02-03] MEDS: MYSOLINE PO SCH ×2 (09:21→22:19)
[2019-02-03] MEDS: COLACE PO SCH (09:21)
[2019-02-03] MEDS: INDERAL PO SCH ×2 (09:22→22:10)
[2019-02-03] MEDS: NEURONTIN PO SCH ×2 (09:22→22:11)
[2019-02-03] MEDS: CYMBALTA PO SCH (09:24)
[2019-02-03] MEDS: ROCEPHIN/NS 1 GM/50 ML 1 GM/50 ML BAG IV SCH (09:24)
--- NOTE | 2019-02-03 12:38 | Progress Note ---
Assessment and Plan Acute right upper quadrant abdominal pain - Likely from acute cholecystitis - Continue supportive care with IV fluid, IV antibiotics - clear liquid for now, pain medications as needed - Consulted Gen. surgery, cholecystectomy tentatively planned for Tuesday - S/p MRCP today showed no CBD dilatation UTI, obtained culture, continue antibiotics Elevated LFT, from cholecystitis - was normal on admission, cont to trend History of depression and bipolar disorder - Resumed home medications, psych consult if needed Chronic back pain, as needed pain meds DVT prophylaxis, Lovenox/SCD Radiological data: CT abdomen and pelvis: Cholelithiasis with evidence of acute cholecystitis Subjective Date of service: 02/03/19 Interval history: Patient seen and examined continue to c/o RUQ pain, tolerating clear liquid Updated son at bedside Plan for surgery on Tuesday Objective - Exam Narrative Exam: GENERAL: well-developed and obese female lying on bed appeared to be in no discomfort. HEENT: Normocephalic. Atraumatic. No conjunctival congestion or icterus. Patie nt has moist mucous membranes. NECK: Supple. Trachea midline. CHEST/LUNGS: Clear to auscultated bilaterally, breathing nonlabored. No wheezes crackles or rhonchi. HEART/CARDIOVASCULAR: Regular in rate and rhythm. S1 and S2 positive. ABDOMEN: Right upper quadrant tenderness with guarding, positive for bowel sounds, no mass SKIN: There is no rash. Warm and dry. NEURO: No focal motor deficit. Follows command. MUSCULOSKELETAL: No joint effusion or tenderness. EXTRIMITY: No edema, no cyanosis or clubbing. PSYCH: Cooperative. - Constitutional Vitals: Vital Signs - 12hr 02/03/19 05:08 Temperature 97.5 F L Pulse Rate 71 Respiratory 16 Rate Blood Pressure 103/61 O2 Sat by Pulse 96 Oximetry - Labs CBC & Chem 7: 02/04/19 07:26 02/04/19 07:26 Labs: Abnormal lab results 02/03/19 02/03/19 Range/Units 05:48 05:48 WBC 17.6 H (4.5-11.0) K/mm3 MCV 98 H (79-97) fl MCH 34 H (28-32) pg MCHC 35 H (30-34) % RDW 12.8 L (13.2-15.2) % Lymph % (Auto) 9.2 L (13.4-35.0) % Seg Neutrophils % 86.0 H (40.0-70.0) % Seg Neutrophils # 15.1 H (1.8-7.7) K/mm3 BUN 4 L (7-17) mg/dL Creatinine 0.5 L (0.7-1.2) mg/dL Glucose 178 H (65-100) mg/dL Calcium 8.0 L (8.4-10.2) mg/dL Total Bilirubin 2.50 H (0.1-1.2) mg/dL AST 46 H (5-40) units/L ALT 84 H (7-56) units/L Albumin 3.4 L (3.9-5) g/dL
--- NOTE | 2019-02-03 15:20 | Progress Note ---
Assessment and Plan 48 yo F with 1. acute cholecystitis 2. UTI 3. elevated bilirubin Plan: Overall patient remains stable. WBC and bilirubin trending up 1. clear liquid diet 2. IVF 3. recommend changing abx to zosyn 4. MRCP done - read pending 5. trend bilirubin, WBC - if bilirubin continues to trend up, will need GI consult for evaluation for ERCP 6. prn pain and nausea control 7. cholecystectomy tentatively planned for Tuesday Thank you, please call with questions Subjective Date of service: 02/03/19 Narrative: Pt seen and examined. c/o pain in RUQ. Also c/o back pain. No f/c, cp, sob. No n/v. Tolerated diet. Went for MRI today. Objective Vital Signs - 12hr 02/03/19 02/03/19 02/03/19 05:08 11:58 11:59 Temperature 97.5 F L 99.1 F Pulse Rate 71 80 Respiratory 16 20 Rate Blood Pressure 103/61 129/77 O2 Sat by Pulse 96 98 Oximetry - General physical appearance Narrative Exam: Gen: AAOx3. NAD ENT: No scleral icterus or conjunctival pallor CV: s1, S2+ Resp: even and unlabored Abd: soft, ND, + RUQ TTP. no r/r/g Ext: no c/c/e - Labs 02/03/19 05:48 02/03/19 05:48 Diabetes panel 02/03/19 Range/Units 05:48 Sodium 137 (137-145) mmol/L Potassium 3.6 (3.6-5.0) mmol/L Chloride 103.2 (98-107) mmol/L Carbon Dioxide 22 (22-30) mmol/L BUN 4 L (7-17) mg/dL Creatinine 0.5 L (0.7-1.2) mg/dL Glucose 178 H (65-100) mg/dL Calcium 8.0 L (8.4-10.2) mg/dL AST 46 H (5-40) units/L ALT 84 H (7-56) units/L Alkaline Phosphatase 83 (35-129) units/L Total Protein 6.5 (6.3-8.2) g/dL Albumin 3.4 L (3.9-5) g/dL Calcium panel 02/03/19 Range/Units 05:48 Calcium 8.0 L (8.4-10.2) mg/dL Albumin 3.4 L (3.9-5) g/dL Pituitary panel 02/03/19 Range/Units 05:48 Sodium 137 (137-145) mmol/L Potassium 3.6 (3.6-5.0) mmol/L Chloride 103.2 (98-107) mmol/L Carbon Dioxide 22 (22-30) mmol/L BUN 4 L (7-17) mg/dL Creatinine 0.5 L (0.7-1.2) mg/dL Glucose 178 H (65-100) mg/dL Calcium 8.0 L (8.4-10.2) mg/dL Adrenal panel 02/03/19 Range/Units 05:48 Sodium 137 (137-145) mmol/L Potassium 3.6 (3.6-5.0) mmol/L Chloride 103.2 (98-107) mmol/L Carbon Dioxide 22 (22-30) mmol/L BUN 4 L (7-17) mg/dL Creatinine 0.5 L (0.7-1.2) mg/dL Glucose 178 H (65-100) mg/dL Calcium 8.0 L (8.4-10.2) mg/dL Total Bilirubin 2.50 H (0.1-1.2) mg/dL AST 46 H (5-40) units/L ALT 84 H (7-56) units/L Alkaline Phosphatase 83 (35-129) units/L Total Protein 6.5 (6.3-8.2) g/dL Albumin 3.4 L (3.9-5) g/dL
--- NOTE | 2019-02-03 15:32 | Magnetic Resonance Report ---
PROCEDURE: MR ABDOMEN MRCP TECHNIQUE: Multiplanar, multisequence MRI (MRCP) of the abdomen was performed without intravenous co ntrast. HISTORY: elevated bilirubin, cholecystitis COMPARISONS: CT of the abdomen and pelvis from 02/02/2019. FINDINGS: Lower thorax: The lung bases are clear. The visualized portions of the heart demonstrate no abnormali ty. Liver: There is diffuse drop in signal of the liver on T1 out of phase imaging. No masses. Gallbladder/biliary system: Cholelithiasis is seen. There is gallbladder wall thickening. Pericholecy stic fluid is seen. The common bile duct is mildly dilated measuring up to 7 mm. No choledocholithias is. Spleen: No splenic mass. Pancreas: No masses. No pancreatic duct dilation. Adrenal glands: No masses. Kidneys: No masses or cysts. No hydronephrosis. No renal or ureteral calculi. Vasculature: The abdominal aorta is nondilated. Lymph nodes: No enlarged lymph nodes. Bowel: No bowel obstruction. There is a small volume of scattered free intra-abdominal fluid. Mild in flammatory changes of the hepatic flexure of the colon are likely related to the cholecystitis. No di verticulosis. Abdominal wall: No hernia or other subcutaneous findings. Bones: No acute finding. IMPRESSION: 1. Findings of acute cholecystitis with cholelithiasis. Minimally dilated common bile duct without ev idence of choledocholithiasis. 2. Hepatic steatosis. 3. Inflammation of the hepatic flexure of the colon is likely related to the adjacent cholecystitis. This document is electronically signed by Alicia Franco., Feb 03 2019 03:30:20 PM ET
[2019-02-03] MEDS: MORPHINE IV PRN (15:53)
[2019-02-03] MEDS ORDERED: TYLENOL PO PRN (18:29)
[2019-02-03] MEDS: ZOSYN/NS 4.5GM/100ML 4.5 GM/100 ML VIAL IV SCH (18:38)
[2019-02-03] MEDS ORDERED: MILNACIPRAN HCL 50 MG PO SCH (22:00)
[2019-02-03] MEDS ORDERED: NON-FORMULARY (Mirtazapine [Remeron] 45 MG) PO SCH (22:00)
[2019-02-03] MEDS: REMERON PO SCH (22:18)
[2019-02-04] MEDS: TORADOL IV SCH ×4 (00:22→18:41)
[2019-02-04] MEDS: D5NS 1,000 ML IV SCH ×4 (00:50→21:59)
[2019-02-04] MEDS: ZOSYN/NS 4.5GM/100ML 4.5 GM/100 ML VIAL IV SCH ×4 (02:59→20:09)
[2019-02-04] MEDS: MORPHINE IV PRN (04:30)
[2019-02-04 08:14] LABS: Basophils % (Auto) 0.2 % (0.0-1.8); Eosinophils # (Auto) 0.1 K/mm3 (0.0-0.4); Eosinophils % (Auto) 0.8 % (0.0-4.3); Hematocrit 31.1 % (30.3-42.9); Hemoglobin 10.8 gm/dl (10.1-14.3); Lymphocytes # (Auto) 1.2 K/mm3 (1.2-5.4); Lymphocytes % (Auto) 8.6 % (13.4-35.0); Mean Corpuscular HGB Conc 35 % (30-34); Mean Corpuscular Volume 99 fl (79-97); Monocytes # (Auto) 0.7 K/mm3 (0.0-0.8); Monocytes % (Auto) 5.2 % (0.0-7.3); Platelet Count 157 K/mm3 (140-440); Red Blood Count 3.14 M/mm3 (3.65-5.03); Red Cell Distribution Width 13.4 % (13.2-15.2)
[2019-02-04 08:38] LABS: Alanine Aminotransferase 54 units/L (7-56); Albumin 2.5 g/dL (3.9-5); BUN/Creatinine Ratio 6; Blood Urea Nitrogen 3 mg/dL (7-17); Calcium 7.5 mg/dL (8.4-10.2); Hemolysis Index 4
[2019-02-04] MEDS: DILAUDID IV PRN ×2 (08:45→16:27)
--- NOTE | 2019-02-04 09:10 | Progress Note ---
Assessment and Plan 48 yo F with 1. acute cholecystitis 2. UTI 3. elevated bilirubin Plan: WBC tredning down, bilirubin persistently elevated 1. clear liquid diet, NPO p MN 2. IVF 3. c/w abx - zosyn 4. MRCP done - acute cholecystitis, no evidence for choledocolithiasis 5. trend bilirubin - bilirubin continues to be elevated, will get GI on board 6. prn pain and nausea control 7. cholecystectomy tentatively planned for Tuesday Thank you, please call with questions Subjective Date of service: 02/04/19 Narrative: Pt seen and examined. c/o RUQ pain. No n/v, cp, sob. Tm 100.8 yesterday Objective Vital Signs - 12hr 02/03/19 02/03/19 02/03/19 22:05 22:09 22:47 Temperature 99.7 F H 98.6 F Pulse Rate 74 81 76 Respiratory 18 18 Rate Blood Pressure 93/54 96/50 Blood Pressure 102/67 [Right] O2 Sat by Pulse 98 97 Oximetry 02/04/19 02/04/19 00:21 06:06 Temperature 98.6 F Pulse Rate 76 84 Respiratory 18 20 Rate Blood Pressure 116/66 129/74 Blood Pressure [Right] O2 Sat by Pulse 97 98 Oximetry - General physical appearance Narrative Exam: Gen: AAOx3. NAD CV: s1, S2+ Resp: even and unlabored Abd: soft, ND, + TTP in epigastrum and RUQ. no r/r/g Ext: no c/c/e - Labs 02/04/19 07:26 02/04/19 07:26 Diabetes panel 02/04/19 Range/Units 07:26 Sodium 139 (137-145) mmol/L Potassium 3.3 L (3.6-5.0) mmol/L Chloride 106.2 (98-107) mmol/L Carbon Dioxide 21 L (22-30) mmol/L BUN 3 L (7-17) mg/dL Creatinine 0.5 L (0.7-1.2) mg/dL Glucose 189 H (65-100) mg/dL Calcium 7.5 L (8.4-10.2) mg/dL AST 24 (5-40) units/L ALT 54 (7-56) units/L Alkaline Phosphatase 100 (35-129) units/L Total Protein 5.5 L (6.3-8.2) g/dL Albumin 2.5 L (3.9-5) g/dL Calcium panel 02/04/19 Range/Units 07:26 Calcium 7.5 L (8.4-10.2) mg/dL Albumin 2.5 L (3.9-5) g/dL Pituitary panel 02/04/19 Range/Units 07:26 Sodium 139 (137-145) mmol/L Potassium 3.3 L (3.6-5.0) mmol/L Chloride 106.2 (98-107) mmol/L Carbon Dioxide 21 L (22-30) mmol/L BUN 3 L (7-17) mg/dL Creatinine 0.5 L (0.7-1.2) mg/dL Glucose 189 H (65-100) mg/dL Calcium 7.5 L (8.4-10.2) mg/dL Adrenal panel 02/04/19 Range/Units 07:26 Sodium 139 (137-145) mmol/L Potassium 3.3 L (3.6-5.0) mmol/L Chloride 106.2 (98-107) mmol/L Carbon Dioxide 21 L (22-30) mmol/L BUN 3 L (7-17) mg/dL Creatinine 0.5 L (0.7-1.2) mg/dL Glucose 189 H (65-100) mg/dL Calcium 7.5 L (8.4-10.2) mg/dL Total Bilirubin 2.50 H (0.1-1.2) mg/dL AST 24 (5-40) units/L ALT 54 (7-56) units/L Alkaline Phosphatase 100 (35-129) units/L Total Protein 5.5 L (6.3-8.2) g/dL Albumin 2.5 L (3.9-5) g/dL
[2019-02-04] MEDS ORDERED: VORTIOXETINE HYDROBROMIDE 20 MG PO SCH (10:00)
[2019-02-04] MEDS: CYMBALTA PO SCH (11:12)
[2019-02-04] MEDS: NEURONTIN PO SCH ×2 (11:13→22:03)
[2019-02-04] MEDS: COLACE PO SCH (11:13)
[2019-02-04] MEDS: INDERAL PO SCH ×2 (11:22→22:10)
[2019-02-04] MEDS: MYSOLINE PO SCH ×2 (11:40→22:03)
--- NOTE | 2019-02-04 12:05 | Progress Note ---
Assessment and Plan Acute right upper quadrant abdominal pain - Likely from acute cholecystitis - Continue supportive care with IV fluid, IV antibiotics - clear liquid for now, pain medications as needed - Consulted Gen. surgery, cholecystectomy tentatively planned for Tuesday - S/p MRCP howed no CBD dilatation UTI, obtained culture, continue antibiotics Elevated LFT, from cholecystitis ?? - was normal on admission, cont to trend - Consulted GI as LFT trending up History of depression and bipolar disorder - Resumed home medications, psych consult if needed Chronic back pain, as needed pain meds DVT prophylaxis, Lovenox/SCD Brief History: This is a 48-year-old [place]-speaking female with a history of depression, bipolar disorder and chronic back pain presented to the hospital with complaints of right upper quadrant pain for more than a day, with nausea and vomiting. CT abdomen and pelvis consistent with cholecystitis and cholelithiasis. Initial workup also showed elevated white count, UTI. Patient was admitted for further evaluation and management. Radiological data: CT abdomen and pelvis: Cholelithiasis with evidence of acute cholecystitis MRCP: 1. Findings of acute cholecystitis with cholelithiasis. Minimally dilated common bile duct without evidence of choledocholithiasis. 2. Hepatic steatosis. 3. Inflammation of the hepatic flexure of the colon is likely related to the a djacent cholecystitis. Subjective Date of service: 02/04/19 Interval history: Patient seen and examined Continue to c/o RUQ pain, tolerating clear liquid Plan for surgery on Tuesday Objective - Exam Narrative Exam: GENERAL: well-developed and obese female lying on bed appeared to be in no discomfort. HEENT: Normocephalic. Atraumatic. No conjunctival congestion or icterus. Patient has moist mucous membranes. NECK: Supple. Trachea midline. CHEST/LUNGS: Clear to auscultated bilaterally, breathing nonlabored. No wheezes crackles or rhonchi. HEART/CARDIOVASCULAR: Regular in rate and rhythm. S1 and S2 positive. ABDOMEN: Right upper quadrant tenderness with guarding, positive for bowel sounds, no mass SKIN: There is no rash. Warm and dry. NEURO: No focal motor deficit. Follows command. MUSCULOSKELETAL: No joint effusion or tenderness. EXTRIMITY: No edema, no cyanosis or clubbing. PSYCH: Cooperative. - Constitutional Vitals: Vital Signs - 12hr 02/04/19 02/04/19 02/04/19 00:21 06:06 11:22 Temperature 98.6 F Pulse Rate 76 84 84 Respiratory 18 20 Rate Blood Pressure 116/66 129/74 129/79 O2 Sat by Pulse 97 98 Oximetry - Labs CBC & Chem 7: 02/05/19 06:44 02/05/19 06:44 Labs: Abnormal lab results 02/04/19 02/04/19 Range/Units 07:26 07:26 WBC 13.9 H (4.5-11.0) K/mm3 RBC 3.14 L (3.65-5.03) M/mm3 MCV 99 H (79-97) fl MCH 34 H (28-32) pg MCHC 35 H (30-34) % Lymph % (Auto) 8.6 L (13.4-35.0) % Seg Neutrophils % 85.2 H (40.0-70.0) % Seg Neutrophils # 11.8 H (1.8-7.7) K/mm3 Potassium 3.3 L (3.6-5.0) mmol/L Carbon Dioxide 21 L (22-30) mmol/L BUN 3 L (7-17) mg/dL Creatinine 0.5 L (0.7-1.2) mg/dL Glucose 189 H (65-100) mg/dL Calcium 7.5 L (8.4-10.2) mg/dL Total Bilirubin 2.50 H (0.1-1.2) mg/dL Total Protein 5.5 L (6.3-8.2) g/dL Albumin 2.5 L (3.9-5) g/dL
[2019-02-04] MEDS ORDERED: K-DUR PO ONE (13:00)
--- NOTE | 2019-02-04 21:20 | Consultation ---
REFERRING PHYSICIAN: Billie Lord MD INDICATION: 1. Abdominal pain. 2. Gallbladder disease. HISTORY OF PRESENT ILLNESS: The patient is a 48-year-old female with history of depression, bipolar disease, and chronic back pain. The patient presents with 6-7 days of 10/10 right upper quadrant pain. The patient reports pain worse with eating. She reports some nausea with vomiting. She reports no diarrhea, constipation, or rectal bleeding. She denies any weight loss. She reports symptoms were worse with eating. The patient subsequently came to the Emergency Room where she had a CT scan showing signs of gallstones and cholecystitis. She subsequently was admitted and had an MRCP showing similar findings, but no signs of common bile duct stone. The patient was noted to have increased liver function tests with a total bilirubin of 2.5. GI is consulted to aid in management. The patient denies any history of known liver disease. She denies any diet or medication changes. No family history of liver disease. No other specific complaints. PAST MEDICAL HISTORY: 1. Migraines. 2. Bipolar depression. 3. Chronic back pain. PAST SURGICAL HISTORY: Appendectomy and back surgeries. ALLERGIES: No known drug allergies. MEDICATIONS: Reviewed and updated in chart. SOCIAL HISTORY: Former smoker. Denies alcohol. FAMILY HISTORY: Negative for colon cancer, IBD, or liver disease. REVIEW OF SYSTEMS: GENERAL: Reports mild weakness. HEENT: No visual complaints or tinnitus. PULMONARY: Denies shortness of breath. No chest pain. GASTROINTESTINAL: Reports abdominal pain. All points of 13-point review of systems otherwise negative. PHYSICAL EXAMINATION: VITAL SIGNS: Temperature of 98.6, pulse 84, respirations 20, blood pressure 129/74. GENERAL: Obese female, in mild distress. HEENT: Pupils equal, round, and reactive. PULMONARY: Clear to auscultation bilaterally. CARDIOVASCULAR: Regular rhythm. Normal S1, S2. ABDOMEN: Positive bowel sounds, soft. SKIN: No obvious rashes. LABORATORY DATA: Pertinent for white count of 13.9, hemoglobin and hematocrit 10.8 and 31.1, platelet count of 157. Coags within normal limits. Sodium of 139, potassium 3.3, chloride 106, CO2 of 21, BUN and creatinine of 3 and 0.5. Total bilirubin of 2.5. AST and ALT were previously elevated at 46 and 84.9 normal at 24 and 54, alkaline phosphatase of 100. CT scan showed signs of gallstones and cholecystitis. MRCP showed signs of gallstones and cholecystitis, but no obvious common bile duct stone. ASSESSMENT AND PLAN: A 48-year-old female presents with approximately 1 week of right upper quadrant pain with CT, MRI, and MRCP consistent with gallstones and cholecystitis. The patient does have increased bilirubin. My suspicion is that this may be related more to the gallbladder disease and not related to severe underlying liver disease itself. Management is noted below. PLAN: 1. We will get basic liver labs including acute hepatitis panel. 2. Avoid hepatotoxic drugs. 3. Laparoscopic cholecystectomy as scheduled. 4. No plans for liver biopsy or intervention at this time. 5. We will follow further recommendation based on progress. JOB# [id number] [facility] EN[facility] THOR[facility]
[2019-02-04] MEDS: REMERON PO SCH (22:02)
[2019-02-04] MEDS ORDERED: NACL 0.9% 250ML 250 ML IV ONE (22:50)
[2019-02-05] MEDS: TORADOL IV SCH ×4 (00:02→19:02)
[2019-02-05] MEDS: ZOSYN/NS 4.5GM/100ML 4.5 GM/100 ML VIAL IV SCH ×3 (03:00→19:06)
[2019-02-05] MEDS: D5NS 1,000 ML IV SCH ×2 (06:00→23:01)
[2019-02-05 07:36] LABS: Basophils % (Auto) 0.3 % (0.0-1.8); Eosinophils # (Auto) 0.2 K/mm3 (0.0-0.4); Eosinophils % (Auto) 1.9 % (0.0-4.3); Hematocrit 29.4 % (30.3-42.9); Hemoglobin 10.6 gm/dl (10.1-14.3); Lymphocytes # (Auto) 1.1 K/mm3 (1.2-5.4); Lymphocytes % (Auto) 9.6 % (13.4-35.0); Mean Corpuscular HGB Conc 36 % (30-34); Mean Corpuscular Volume 96 fl (79-97); Monocytes # (Auto) 0.7 K/mm3 (0.0-0.8); Monocytes % (Auto) 6.5 % (0.0-7.3); Platelet Count 169 K/mm3 (140-440); Red Blood Count 3.05 M/mm3 (3.65-5.03)
[2019-02-05 08:02] LABS: Alanine Aminotransferase 51 units/L (7-56); Albumin 2.5 g/dL (3.9-5); BUN/Creatinine Ratio 6; Bilirubin,Direct 2.7 mg/dL (0-0.2); Blood Urea Nitrogen 3 mg/dL (7-17); Calcium 7.2 mg/dL (8.4-10.2); Hemolysis Index 2
--- NOTE | 2019-02-05 09:03 | Event Note ---
Date: 02/05/19 confirmed that signed consent on chart. Via telephone peer health promoter #[phone], pt reported that pain is better. No other complaints. Understands that she needs to remain nothing by mouth until after surgery. She understands that she may require further procedures afterwards as her labs are abnormal today. She has no questions. Discussed increase in bilirubin with GI. At this time, they would prefer that an IOC is done. We will try to accomplish this. It may be difficult as there is significant inflammatory change in that area.
[2019-02-05] MEDS: MYSOLINE PO SCH ×2 (10:00→22:39)
[2019-02-05] MEDS: NEURONTIN PO SCH ×2 (10:00→22:39)
[2019-02-05] MEDS: INDERAL PO SCH ×2 (10:00→23:06)
[2019-02-05] MEDS: DILAUDID IV PRN ×3 (10:34→17:43)
[2019-02-05] MEDS ORDERED: XYLOCAINE 1% 20 mL ONE (11:30)
[2019-02-05] MEDS ORDERED: MARCAINE 0.5% INFILTRATI ONE ×2 (11:31→13:34)
[2019-02-05] MEDS ORDERED: DILAUDID ONE (11:35)
[2019-02-05] MEDS ORDERED: DIPRIVAN 10 MG/ML IV ONE (11:35)
[2019-02-05] MEDS ORDERED: XYLOCAINE MPF 2% ONE (11:36)
[2019-02-05] MEDS ORDERED: ZEMURON IV ONE (11:37)
--- NOTE | 2019-02-05 11:45 | Gastroenterology Progress Note ---
Assessment and Plan 1.elevated bilirubin 2.acute cholecystitis -afebrile -WBC 11.0-trending down -H/H, plt, INR WNL -CT and MRCP- gallstones and acute cholecystitis but evidence of choledocholithiasis -etiology-likely 2/2 GB disease and not underlying liver disease -hepatic panel and autoimmune serologies pending -surgery following with cholecystectomy pending for today -given elevation in T.joaquín/alk phos this am, recommend IOC -will consider ERCP based on above results -continue to trend labs and supportive care -will follow Subjective Date of service: 02/05/19 Principal diagnosis: elevated bilirubin, cholecystitis Interval history: No acute distress. Reports continued abd pain. No N/V. Objective - Constitutional Vitals: Temp Pulse Resp BP Pulse Ox 98.0 F 87 20 138/87 98 02/05/19 04:54 02/05/19 06:01 02/05/19 04:54 02/05/19 06:01 02/05/19 04:54 General appearance: no acute distress - Respiratory Respiratory: bilateral: CTA (anterior) - Cardiovascular Rhythm: regular - Gastrointestinal General gastrointestinal: Present: soft, tender, non-distended, normal bowel sounds - Neurologic Neurological: alert and oriented x3 - Labs CBC & Chem 7: 02/05/19 06:44 02/05/19 06:44 Labs: Laboratory Results - last 24 hr 02/05/19 02/05/19 02/05/19 06:44 06:44 06:44 WBC 11.0 RBC 3.05 L Hgb 10.6 Hct 29.4 L MCV 96 MCH 35 H MCHC 36 H RDW 13.0 L Plt Count 169 Lymph % (Auto) 9.6 L [place] % (Auto) 6.5 Eos % (Auto) 1.9 Baso % (Auto) 0.3 Lymph # 1.1 L [place] # 0.7 Eos # 0.2 Baso # 0.0 Seg Neutrophils % 81.7 H Seg Neutrophils # 9.0 H Sodium 141 Potassium 3.3 L Chloride 109.2 H Carbon Dioxide 20 L Anion Gap 15 BUN 3 L Creatinine 0.5 L Estimated GFR > 60 BUN/Creatinine Ratio 6 Glucose 153 H Calcium 7.2 L Ferritin 509.1 H Total Bilirubin 2.90 H Direct Bilirubin 2.7 H Indirect Bilirubin 0.2 AST 26 ALT 51 Alkaline Phosphatase 140 H Total Protein 5.3 L Albumin 2.5 L Albumin/Globulin Ratio 0.9
--- NOTE | 2019-02-05 11:54 | Anesthesia Consultation ---
Anesthesia Consult and Med Hx Date of service: 02/05/19 - Airway Anesthetic Teeth Evaluation: Good, Caps ROM Head & Neck: Adequate Mental/Hyoid Distance: Adequate Mallampati Class: Class III Intubation Access Assessment: Possibly Difficult - Pre-Operative Health Status ASA Pre-Surgery Classification: ASA2 Proposed Anesthetic Plan: General - Pulmonary Hx Smoking: Yes (09/22 ppd) Hx Asthma: No COPD: No Hx Pneumonia: No - Central Nervous System Hx Back Pain: Yes (CHRONIC BACK PAIN GOING TO LEFT LEG) Hx Psychiatric Problems: Yes (bipolar disorder) - Gastrointestinal Hx Ulcer: No (gallbladder disease) - Endocrine Hx End Stage Renal Disease: No - Other Systems Hx Cancer: No Hx Obesity: Yes (BMI 35.6)
--- NOTE | 2019-02-05 11:54 | Anesthesia Day of Surgery ---
Anesthesia Day of Surgery - Day of Surgery Patient Examined: Yes Patient H&P Reviewed: Yes Patient is NPO: Yes
[2019-02-05] MEDS ORDERED: NACL 0.9% 1000 ML 1,000 ML IV SCH (12:00)
[2019-02-05] MEDS ORDERED: VERSED IV NR (12:00)
[2019-02-05] MEDS ORDERED: PEPCID IV NR (12:00)
[2019-02-05] MEDS ORDERED: SUBLIMAZE ONE (12:22)
[2019-02-05] MEDS ORDERED: ANCEF ONE ×2 (13:06→13:07)
[2019-02-05] MEDS ORDERED: XYLOCAINE 1% 20 mL INFILTRATI ONE (13:34)
[2019-02-05] MEDS ORDERED: WATER FOR IRRIG STERILE IR ONE (13:35)
[2019-02-05] MEDS ORDERED: NACL 0.9% IR ONE (13:35)
--- NOTE | 2019-02-05 13:55 | Progress Note ---
Assessment and Plan Acute right upper quadrant abdominal pain - Likely from acute cholecystitis - Continue supportive care with IV fluid, IV antibiotics, pain medications as needed - Consulted Gen. surgery, cholecystectomy planned for today UTI, obtained culture, continue antibiotics Elevated LFT, - was normal on admission, cont to trend - Consulted GI as LFT trending up - S/p MRCP showed no CBD dilatation, plan for possible ERCP Hypokalemia, replete and monitor History of depression and bipolar disorder - Resumed home medications, psych consult if needed Chronic back pain, as needed pain meds DVT prophylaxis, Lovenox/SCD Brief History: This is a 48-year-old [place]-speaking female with a history of depression, bi polar disorder and chronic back pain presented to the hospital with complaints of right upper quadrant pain for more than a day, with nausea and vomiting. CT abdomen and pelvis consistent with cholecystitis and cholelithiasis. Initial workup also showed elevated white count, UTI. Patient was admitted for further evaluation and management. Radiological data: CT abdomen and pelvis: Cholelithiasis with evidence of acute cholecystitis MRCP: 1. Findings of acute cholecystitis with cholelithiasis. Minimally dilated common bile duct without evidence of choledocholithiasis. 2. Hepatic steatosis. 3. Inflammation of the hepatic flexure of the colon is likely related to the adjacent cholecystitis. Subjective Date of service: 02/05/19 Principal diagnosis: elevated bilirubin, cholecystitis Interval history: Patient seen and examined plan for Robotic Assisted Cholecystectomy with IOC today LFT trending up, continue to c/o RUQ abdominal pain Objective - Exam Narrative Exam: GENERAL: well-developed and obese female lying on bed appeared to be in no discomfort. HEENT: Normocephalic. Atraumatic. No conjunctival congestion or icterus. Patient has moist mucous membranes. NECK: Supple. Trachea midline. CHEST/LUNGS: Clear to auscultated bilaterally, breathing nonlabored. No wheezes crackles or rhonchi. HEART/CARDIOVASCULAR: Regular in rate and rhythm. S1 and S2 positive. ABDOMEN: Right upper quadrant tenderness with guarding, positive for bowel sounds, no mass SKIN: There is no rash. Warm and dry. NEURO: No focal motor deficit. Follows command. MUSCULOSKELETAL: No joint effusion or tenderness. EXTRIMITY: No edema, no cyanosis or clubbing. PSYCH: Cooperative. - Constitutional Vitals: Vital Signs - 12hr 02/05/19 02/05/19 02/05/19 04:54 06:01 11:40 Temperature 98.0 F 97.3 F L Pulse Rate 81 87 88 Respiratory 20 20 Rate Blood Pressure 143/83 132/77 Blood Pressure 138/87 [Right] O2 Sat by Pulse 98 95 Oximetry 02/05/19 11:45 Temperature 97.3 F L Pulse Rate 88 Respiratory 20 Rate Blood Pressure 132/77 Blood Pressure [Right] O2 Sat by Pulse 95 Oximetry - Labs CBC & Chem 7: 02/05/19 06:44 02/05/19 06:44 Labs: Abnormal lab results 02/05/19 02/05/19 02/05/19 Range/Units 06:44 06:44 06:44 RBC 3.05 L (3.65-5.03) M/mm3 Hct 29.4 L (30.3-42.9) % MCH 35 H (28-32) pg MCHC 36 H (30-34) % RDW 13.0 L (13.2-15.2) % Lymph % (Auto) 9.6 L (13.4-35.0) % Lymph # 1.1 L (1.2-5.4) K/mm3 Seg Neutrophils % 81.7 H (40.0-70.0) % Seg Neutrophils # 9.0 H (1.8-7.7) K/mm3 Potassium 3.3 L (3.6-5.0) mmol/L Chloride 109.2 H (98-107) mmol/L Carbon Dioxide 20 L (22-30) mmol/L BUN 3 L (7-17) mg/dL Creatinine 0.5 L (0.7-1.2) mg/dL Glucose 153 H (65-100) mg/dL Calcium 7.2 L (8.4-10.2) mg/dL Ferritin 509.1 H (13.0-400.0) ng/mL Total Bilirubin 2.90 H (0.1-1.2) mg/dL Direct Bilirubin 2.7 H (0-0.2) mg/dL Alkaline Phosphatase 140 H (35-129) units/L Total Protein 5.3 L (6.3-8.2) g/dL Albumin 2.5 L (3.9-5) g/dL
[2019-02-05] MEDS ORDERED: DECADRON ONE (16:18)
[2019-02-05] MEDS ORDERED: BLOXIVERZ ONE (16:19)
[2019-02-05] MEDS ORDERED: ZOFRAN ONE (16:19)
[2019-02-05] MEDS ORDERED: ROBINUL ONE (16:19)
--- NOTE | 2019-02-05 16:46 | Post Operative Note ---
Date of procedure: 02/05/19 (dictation:[id number]) Pre-op diagnosis: Acute Cholecystitis Post-op diagnosis: other (Gangrenous Cholecystitis) Findings: inflamed, thickened GB with adhesions to surrounding omentum. Densely adhered to liver. Large stone in GB. Filling defect noted on IOC Procedure: Robotic Assisted Cholecystectomy with IOC IVF 1L EBL 100cc Anesthesia: GETA Surgeon: WILBERT CRUZ Core Machine Tender: VIMAL FISHER Estimated blood loss: 50-100ml Pathology: list (gallbladder) Specimen disposition: to lab Condition: stable Disposition: PACU
[2019-02-05] MEDS ORDERED: DILAUDID IV PRN (16:52)
[2019-02-05] MEDS ORDERED: ZOFRAN IV ONE (16:53)
--- NOTE | 2019-02-05 17:07 | Post Anesthesia Evaluation ---
- Post Anesthesia Evaluation Patient Participated: Yes Airway Patent: Yes Stable Respiratory Function: Yes Nausea/Vomiting: No Temp > 96.8F: Yes Pain Manageable: Yes Adequeate Hydration: Yes Anesthesia Complications: No Block Receding Appropriately: Not Applicable Patient on Ventilator: No
[2019-02-05] MEDS: CYMBALTA PO SCH (19:03)
[2019-02-05] MEDS: COLACE PO SCH (19:03)
[2019-02-05] MEDS: REMERON PO SCH (22:38)
[2019-02-06] MEDS: TORADOL IV SCH ×5 (00:27→23:41)
[2019-02-06] MEDS: KCL 30 MEQ in NACL 0.9% 1000 ML 1,000 ML IV SCH ×2 (01:40→19:50)
[2019-02-06] MEDS: ZOSYN/NS 4.5GM/100ML 4.5 GM/100 ML VIAL IV SCH ×3 (03:39→19:42)
[2019-02-06 06:31] LABS: Basophils % (Auto) 0.2 % (0.0-1.8); Hematocrit 26.6 % (30.3-42.9); Hemoglobin 9.4 gm/dl (10.1-14.3); Lymphocytes # (Auto) 1.1 K/mm3 (1.2-5.4); Lymphocytes % (Auto) 10.3 % (13.4-35.0); Mean Corpuscular HGB Conc 35 % (30-34); Mean Corpuscular Volume 97 fl (79-97); Monocytes # (Auto) 0.7 K/mm3 (0.0-0.8); Monocytes % (Auto) 6.5 % (0.0-7.3); Platelet Count 193 K/mm3 (140-440); Red Blood Count 2.75 M/mm3 (3.65-5.03); Red Cell Distribution Width 13.4 % (13.2-15.2)
[2019-02-06 06:53] LABS: Alanine Aminotransferase 49 units/L (7-56); Albumin 2.3 g/dL (3.9-5); BUN/Creatinine Ratio 10; Blood Urea Nitrogen 6 mg/dL (7-17); Calcium 7.1 mg/dL (8.4-10.2); Hemolysis Index 2
[2019-02-06 07:09] LABS: Hepatitis B Surface Antigen Non-Reactive (Negative); Hepatitis C Virus Antibody Non-Reactive (NonReactive)
--- NOTE | 2019-02-06 07:41 | Fluoroscopy Report ---
FLUOROSCOPY CHOLANGIOGRAM OPERATIVE HISTORY: Gangrenous cholecystitis. FINDINGS: Fluoroscopy was provided by radiology during intraoperative cholangiogram by the surgeon. 2 fluoroscopic images of the right upper quadrant are presented demonstrating contrast agent throughout the common bile duct. No obvious filling defects in the common bile duct are appreciated. No evidence for biliary leak. Please correlate with the operative report as needed.
--- NOTE | 2019-02-06 11:05 | Gastroenterology Progress Note ---
<ANNA VARGHESE - Last Filed: 02/06/19 11:05> Assessment and Plan 1.elevated bilirubin 2.acute cholecystitis -afebrile -WBC 10.4-trending down -INR WNL -LFTs-T.joaquín 1.60, AST 30, ALT 49, alk phos 144 -acute hepatitis panel negative -autoimmune serologies pending -CT and MRCP- gallstones and acute cholecystitis but evidence of cho ledocholithiasis -etiology-likely 2/2 GB disease and not underlying liver disease -s/p cholecystectomy yesterdasy with filling defect noted in IOC -will schedule for ERCP today -Keep NPO -continue to trend labs and supportive care -will follow Subjective Date of service: 02/06/19 Principal diagnosis: elevated bilirubin, cholecystitis Interval history: No acute distress. Reports continued upper abd pain. No N/V. Objective - Constitutional Vitals: Temp Pulse Resp BP Pulse Ox 98.6 F 68 20 141/88 100 02/06/19 06:59 02/06/19 06:59 02/06/19 06:59 02/06/19 06:59 02/06/19 06:59 General appearance: no acute distress - Respiratory Respiratory: bilateral: CTA (anterior) - Cardiovascular Rhythm: regular - Gastrointestinal General gastrointestinal: Present: soft, tender, non-distended, normal bowel sounds, other (+surgical incision sites) - Neurologic Neurological: alert and oriented x3 - Labs CBC & Chem 7: 02/06/19 05:41 02/06/19 05:41 Labs: Laboratory Results - last 24 hr 02/05/19 02/06/19 02/06/19 18:43 05:41 05:41 WBC 10.4 RBC 2.75 L Hgb 9.4 L Hct 26.6 L MCV 97 MCH 34 H MCHC 35 H RDW 13.4 Plt Count 193 Lymph % (Auto) 10.3 L [place] % (Auto) 6.5 Eos % (Auto) 0.0 Baso % (Auto) 0.2 Lymph # 1.1 L [place] # 0.7 Eos # 0.0 Baso # 0.0 Seg Neutrophils % 83.0 H Seg Neutrophils # 8.6 H Sodium 138 Potassium 3.4 L Chloride 106.9 Carbon Dioxide 20 L Anion Gap 15 BUN 6 L Creatinine 0.6 L Estimated GFR > 60 BUN/Creatinine Ratio 10 Glucose 175 H POC Glucose 171 H Calcium 7.1 L Total Bilirubin 1.60 H AST 30 ALT 49 Alkaline Phosphatase 144 H Total Protein 5.6 L Albumin 2.3 L Albumin/Globulin Ratio 0.7 Hepatitis A IgM Ab Hep Bs Antigen Hep B Core IgM Ab Hepatitis C Antibody 02/06/19 05:41 WBC RBC Hgb Hct MCV MCH MCHC RDW Plt Count Lymph % (Auto) [place] % (Auto) Eos % (Auto) Baso % (Auto) Lymph # [place] # Eos # Baso # Seg Neutrophils % Seg Neutrophils # Sodium Potassium Chloride Carbon Dioxide Anion Gap BUN Creatinine Estimated GFR BUN/Creatinine Ratio Glucose POC Glucose Calcium Total Bilirubin AST ALT Alkaline Phosphatase Total Protein Albumin Albumin/Globulin Ratio Hepatitis A IgM Ab Non-reactive Hep Bs Antigen Non-reactive Hep B Core IgM Ab Non-reactive Hepatitis C Antibody Non-reactive <MARK LAN A - Last Filed: 02/09/19 18:30> Assessment and Plan - pt seen and examined - management as outlined Objective - Constitutional Vitals: Temp Pulse Resp BP Pulse Ox 98.3 F 67 20 144/78 96 02/09/19 06:14 02/09/19 09:33 02/09/19 06:14 02/09/19 09:33 02/09/19 06:14 - Labs CBC & Chem 7: 02/07/19 10:01 02/09/19 06:38 Labs: Laboratory Results - last 24 hr 02/09/19 06:38 Sodium 138 Potassium 3.5 L Chloride 100.6 Carbon Dioxide 27 Anion Gap 14 BUN 7 Creatinine 0.4 L Estimated GFR > 60 BUN/Creatinine Ratio 18 Glucose 116 H Calcium 7.7 L Total Bilirubin 3.10 H AST 307 H ALT 282 H Alkaline Phosphatase 446 H Total Protein 5.4 L Albumin 2.6 L Albumin/Globulin Ratio 0.9
--- NOTE | 2019-02-06 11:32 | Progress Note ---
Assessment and Plan Acute right upper quadrant abdominal pain - Likely from acute cholecystitis - Continue supportive care with IV fluid, IV antibiotics, pain medications as needed - Consulted Gen. surgery, s/p Robotic Assisted Cholecystectomy with IOC on Sepsis, likely present from admission - had temp, leukocytosis - likely from cholecystitis and UTI - cont abx UTI, continue antibiotics, Cx negative probably because obtained after getting abx Elevated LFT, - was normal on admission, cont to trend - Consulted GI as LFT trending up - S/p MRCP showed no CBD dilatation, plan possible ERCP today Hypokalemia, replete and monitor History of depression and bipolar disorder - Resumed home medications, psych consult if needed Chronic back pain, as needed pain meds DVT prophylaxis, Lovenox/SCD Brief History: This is a 48-year-old [place]-speaking female with a history of depression, bipolar disorder and chronic back pain presented to the hospital with complaints of right upper quadrant pain for more than a day, with nausea and vomiting. CT abdomen and pelvis consistent with cholecystitis and cholelithiasis. Initial workup also showed elevated white count, UTI. Patient was admitted for further evaluation and management. Radiological data: CT abdomen and pelvis: Cholelithiasis with evidence of acute cholecystitis MRCP: 1. Findings of acute cholecystitis with cholelithiasis. Minimally dilated common bile duct without evidence of choledocholithiasis. 2. Hepatic steatosis. 3. Inflammation of the hepatic flexure of the colon is likely related to the adjacent cholecystitis. Subjective Date of service: 02/06/19 Principal diagnosis: elevated bilirubin, cholecystitis Interval history: Patient seen and examined NPO now, plan for ERCP today Objective - Constitutional Vitals: Vital Signs - 12hr 02/06/19 02/06/19 02/06/19 00:21 00:27 00:57 Temperature 98.4 F Pulse Rate 72 Respiratory 20 18 18 Rate Blood Pressure 128/83 O2 Sat by Pulse 97 Oximetry 02/06/19 02/06/19 02/06/19 06:22 06:52 06:59 Temperature 98.6 F Pulse Rate 68 Respiratory 18 18 20 Rate Blood Pressure 141/88 O2 Sat by Pulse 100 Oximetry - Labs CBC & Chem 7: 02/07/19 10:01 02/09/19 06:38 Labs: Abnormal lab results 02/05/19 02/06/19 02/06/19 Range/Units 18:43 05:41 05:41 RBC 2.75 L (3.65-5.03) M/mm3 Hgb 9.4 L (10.1-14.3) gm/dl Hct 26.6 L (30.3-42.9) % MCH 34 H (28-32) pg MCHC 35 H (30-34) % Lymph % (Auto) 10.3 L (13.4-35.0) % Lymph # 1.1 L (1.2-5.4) K/mm3 Seg Neutrophils % 83.0 H (40.0-70.0) % Seg Neutrophils # 8.6 H (1.8-7.7) K/mm3 Potassium 3.4 L (3.6-5.0) mmol/L Carbon Dioxide 20 L (22-30) mmol/L BUN 6 L (7-17) mg/dL Creatinine 0.6 L (0.7-1.2) mg/dL Glucose 175 H (65-100) mg/dL POC Glucose 171 H (70-105) Calcium 7.1 L (8.4-10.2) mg/dL Total Bilirubin 1.60 H (0.1-1.2) mg/dL Alkaline Phosphatase 144 H (35-129) units/L Total Protein 5.6 L (6.3-8.2) g/dL Albumin 2.3 L (3.9-5) g/dL
[2019-02-06] MEDS: COLACE PO SCH (11:41)
[2019-02-06] MEDS: CYMBALTA PO SCH (11:41)
[2019-02-06] MEDS: INDERAL PO SCH ×2 (11:42→22:29)
[2019-02-06] MEDS: MYSOLINE PO SCH ×2 (11:43→22:29)
[2019-02-06] MEDS: NEURONTIN PO SCH ×2 (11:45→22:29)
[2019-02-06] MEDS ORDERED: DILAUDID ONE (13:11)
[2019-02-06] MEDS ORDERED: NACL 0.9% 1000 ML 1,000 ML ONE (13:24)
[2019-02-06] MEDS ORDERED: DECADRON ONE ×2 (13:37→13:49)
[2019-02-06] MEDS ORDERED: ZEMURON IV ONE (13:37)
[2019-02-06] MEDS ORDERED: SUBLIMAZE ONE (13:37)
[2019-02-06] MEDS ORDERED: DIPRIVAN 10 MG/ML IV ONE (13:37)
[2019-02-06] MEDS ORDERED: ZOFRAN ONE (13:37)
[2019-02-06] MEDS ORDERED: NACL 0.9% 100 ML ONE (13:37)
[2019-02-06] MEDS ORDERED: PEPCID IV ONE (13:51)
[2019-02-06] MEDS ORDERED: NACL 0.9% 1000 ML 1,000 ML IV SCH (14:00)
--- NOTE | 2019-02-06 14:08 | Anesthesia Day of Surgery ---
<SRIRAM ALEGRIA - Last Filed: 02/06/19 14:08> Anesthesia Day of Surgery - Day of Surgery Patient Examined: Yes Patient H&P Reviewed: Yes Patient is NPO: No (ate jello at 1400) Beta Blockers: No <YUE VILLANUEVA - Last Filed: 02/07/19 08:48> Anesthesia Day of Surgery - Day of Surgery Patient is NPO: No (Ate plain jello (no fruit) at 1200.)
--- NOTE | 2019-02-06 14:10 | Anesthesia Consultation ---
Anesthesia Consult and Med Hx Date of service: 02/06/19 - Airway Anesthetic Teeth Evaluation: Good ROM Head & Neck: Adequate Mental/Hyoid Distance: Adequate Mallampati Class: Class III Intubation Access Assessment: Good - Pulmonary Exam CTA: Yes - Cardiac Exam Cardiac Exam: No Murmur - Pre-Operative Health Status ASA Pre-Surgery Classification: ASA2 Proposed Anesthetic Plan: General - Pulmonary Hx Smoking: Yes (09/22 ppd) Hx Asthma: No COPD: No Hx Pneumonia: No - Central Nervous System Hx Back Pain: Yes (CHRONIC BACK PAIN GOING TO LEFT LEG) Hx Psychiatric Problems: Yes (bipolar disorder) - Gastrointestinal Hx Ulcer: No (gallbladder disease) - Endocrine Hx End Stage Renal Disease: No - Other Systems Hx Cancer: No Hx Obesity: Yes (BMI 35.6)
[2019-02-06] MEDS ORDERED: ROBINUL ONE (14:55)
[2019-02-06] MEDS ORDERED: CATAPRES-TTS PATCH TD SCH (15:00)
--- NOTE | 2019-02-06 15:25 | Post Operative Note ---
Pre-op diagnosis: choledocholithiasis Post-op diagnosis: same Findings: ERCP: cholagiogram w/ small defect - sphinterotomy - balloon w/o obvious stone removed, saml;l sludege - negative other Procedure: ERCP Anesthesia: MAC Surgeon: MARK LAN Estimated blood loss: none Pathology: list Specimen disposition: to lab Condition: stable Disposition: floor
--- NOTE | 2019-02-06 15:45 | Procedure Note ---
INDICATION: 1. Choledocholithiasis. 2. Abdominal pain. MEDICATIONS: Propofol per [employer]IDE SALES COORDINATOR. COMPLICATIONS: None. DESCRIPTION OF PROCEDURE: The patient brought to procedure suite. The patient had a procedure discussed with her at length. All risks, complications, and benefits discussed, which the patient signed for the procedure to be performed. The patient was placed in left lateral decubitus position. Mouth block placed in the patient's oral cavity. After adequate sedation medication as above, endoscope was introduced into the mouth and brought to the level of the second portion of duodenum. Retroflexion view was performed. The patient's vital signs remained stable throughout the procedure. FINDINGS: There was a grossly normal appearing esophagus and stomach. The ampulla was noted. Second portion of duodenum appeared normal. Sphincterotome with the aid of a guidewire was then inserted and cholangiogram performed. Cholangiogram showed approximately 8-9 mm common bile duct with a question of a small filling defect in the common bile duct. A medium sized sphincterotomy was performed. A 9-12 mm balloon was then used to sweep the common bile duct 3-4 times. Small sludge was noted to be removed, but no obvious stone, but induced sludge was removed. Occlusion cholangiogram showed no filling defects. No pancreatogram was performed. No stents were placed. The patient tolerated the procedure well. No complications during the procedure. IMPRESSION: 1. Normal esophagus, stomach. 2. Normal ampulla. 3. Cholangiogram with a small defect. 4. Sphincterotomy performed. 5. Sludge removed. RECOMMENDATIONS: 1. Follow labs. 2. Advance diet. 3. Okay to discharge from GI standpoint. JOB# [id number] [facility]
--- NOTE | 2019-02-06 16:54 | Progress Note ---
Assessment and Plan - Patient Problems (1) Acute cholecystitis Current Visit: Yes Status: Acute Plan to address problem: Pt stable. s/p robotic dilip - 02/05 - POD#1. Appears to be doing well. Went for ERCP for retained stone. Ok from my standpoint to advance diet. If tolerated, may d/c from my viewpoint. - May shower tomorrow. Pat dry wounds. - f/u in 2 weeks - diet as tolerated. Please call with questions. (2) Urinary tract infection Current Visit: Yes Status: Acute Qualifiers: Urinary tract infection type: site unspecified Hematuria presence: without hematuria Qualified Code(s): N39.0 - Urinary tract infection, site not specified Plan to address problem: Pt stable. On Abx. . Subjective Date of service: 02/06/19 Patient Reports: Positive: still having pain (on right side.) Objective Vital Signs - 12hr 02/06/19 02/06/19 02/06/19 06:22 06:52 06:59 Temperature 98.6 F Pulse Rate 68 Respiratory 18 18 20 Rate Blood Pressure 141/88 O2 Sat by Pulse 100 Oximetry 02/06/19 02/06/19 02/06/19 10:00 11:42 13:00 Temperature 97.8 F Pulse Rate 72 73 Respiratory 12 Rate Blood Pressure 127/76 186/101 O2 Sat by Pulse 97 100 Oximetry 02/06/19 02/06/19 02/06/19 13:05 15:16 15:28 Temperature 97.8 F 98.2 F Pulse Rate 73 84 81 Respiratory 12 16 15 Rate Blood Pressure 186/101 138/81 144/85 O2 Sat by Pulse 100 97 97 Oximetry 02/06/19 02/06/19 02/06/19 15:34 15:43 15:49 Temperature Pulse Rate 81 79 79 Respiratory 15 15 16 Rate Blood Pressure 134/87 141/89 141/86 O2 Sat by Pulse 95 95 96 Oximetry 02/06/19 02/06/19 16:06 16:16 Temperature Pulse Rate 76 74 Respiratory 14 13 Rate Blood Pressure 125/81 126/78 O2 Sat by Pulse 96 97 Oximetry - General physical appearance no distress, no pain, other (looks better) - Respiratory normal expansion, normal respiratory effort - Abdomen soft, tender (less than before on right side), not guarding, not rigid, surgical scars (C/d/I) - Integumentary no rash, no growths, no abnormal pigmentation - Psychiatric oriented to time, oriented to person, oriented to place, speech is normal, memory intact - Labs 02/06/19 05:41 02/06/19 05:41 Diabetes panel 02/06/19 Range/Units 05:41 Sodium 138 (137-145) mmol/L Potassium 3.4 L (3.6-5.0) mmol/L Chloride 106.9 (98-107) mmol/L Carbon Dioxide 20 L (22-30) mmol/L BUN 6 L (7-17) mg/dL Creatinine 0.6 L (0.7-1.2) mg/dL Glucose 175 H (65-100) mg/dL Calcium 7.1 L (8.4-10.2) mg/dL AST 30 (5-40) units/L ALT 49 (7-56) units/L Alkaline Phosphatase 144 H (35-129) units/L Total Protein 5.6 L (6.3-8.2) g/dL Albumin 2.3 L (3.9-5) g/dL Calcium panel 02/06/19 Range/Units 05:41 Calcium 7.1 L (8.4-10.2) mg/dL Albumin 2.3 L (3.9-5) g/dL Pituitary panel 02/06/19 Range/Units 05:41 Sodium 138 (137-145) mmol/L Potassium 3.4 L (3.6-5.0) mmol/L Chloride 106.9 (98-107) mmol/L Carbon Dioxide 20 L (22-30) mmol/L BUN 6 L (7-17) mg/dL Creatinine 0.6 L (0.7-1.2) mg/dL Glucose 175 H (65-100) mg/dL Calcium 7.1 L (8.4-10.2) mg/dL Adrenal panel 02/06/19 Range/Units 05:41 Sodium 138 (137-145) mmol/L Potassium 3.4 L (3.6-5.0) mmol/L Chloride 106.9 (98-107) mmol/L Carbon Dioxide 20 L (22-30) mmol/L BUN 6 L (7-17) mg/dL Creatinine 0.6 L (0.7-1.2) mg/dL Glucose 175 H (65-100) mg/dL Calcium 7.1 L (8.4-10.2) mg/dL Total Bilirubin 1.60 H (0.1-1.2) mg/dL AST 30 (5-40) units/L ALT 49 (7-56) units/L Alkaline Phosphatase 144 H (35-129) units/L Total Protein 5.6 L (6.3-8.2) g/dL Albumin 2.3 L (3.9-5) g/dL
[2019-02-06] MEDS: REMERON PO SCH (22:31)
[2019-02-07] MEDS: ZOSYN/NS 4.5GM/100ML 4.5 GM/100 ML VIAL IV SCH ×2 (04:44→10:15)
[2019-02-07] MEDS: DILAUDID IV PRN (04:52)
[2019-02-07] MEDS: TORADOL IV SCH ×2 (06:00→13:16)
[2019-02-07] MEDS: CYMBALTA PO SCH (10:10)
[2019-02-07] MEDS: INDERAL PO SCH ×2 (10:12→21:32)
[2019-02-07] MEDS: COLACE PO SCH (10:12)
[2019-02-07] MEDS: KCL 30 MEQ in NACL 0.9% 1000 ML 1,000 ML IV SCH (10:12)
[2019-02-07] MEDS: NEURONTIN PO SCH (10:12)
[2019-02-07] MEDS: MYSOLINE PO SCH ×2 (10:12→21:33)
[2019-02-07 10:33] LABS: Hemoglobin 9.7 gm/dl (10.1-14.3); Mean Corpuscular HGB Conc 35 % (30-34); Mean Corpuscular Volume 98 fl (79-97); Platelet Count 288 K/mm3 (140-440); Red Blood Count 2.86 M/mm3 (3.65-5.03)
[2019-02-07 10:52] LABS: Alanine Aminotransferase 194 units/L (7-56); Albumin 2.6 g/dL (3.9-5); BUN/Creatinine Ratio 23; Blood Urea Nitrogen 16 mg/dL (7-17); Calcium 7.7 mg/dL (8.4-10.2); Hemolysis Index 5
--- NOTE | 2019-02-07 10:59 | Gastroenterology Progress Note ---
Assessment and Plan 1.elevated bilirubin 2.acute cholecystitis -temp 99.0 -WBC 7.9 -INR WNL -LFTs-trending up -acute hepatitis panel negative -autoimmune serologies pending -CT and MRCP- gallstones and acute cholecystitis but evidence of choledocholithiasis -etiology-likely 2/2 GB disease and not underlying liver disease -s/p cholecystectomy with filling defect noted in IOC -s/p ERCP yesterday with cholangiogram w/ small defect-sphinterotomy performed and duct swept with balloon with sludge removed (no obvious stone); negative otherwise -clinically, patient reports abd pain improving. No N/V. -clear liquids-advance as tolerated -continue to trend labs (CMP in am) and supportive care -if labs improved and patient stable in am, okay to be d/c per GI standpoint with f/u in clinic Subjective Date of service: 02/07/19 Principal diagnosis: elevated bilirubin, cholecystitis Interval history: Patient resting in bed this am w/o acute distress. Reports abd pain improving. No N/V. Objective - Constitutional Vitals: Temp Pulse Resp BP Pulse Ox 99.0 F 68 20 159/96 95 02/07/19 06:38 02/07/19 10:12 02/07/19 06:38 02/07/19 10:12 02/07/19 06:38 General appearance: no acute distress - Respiratory Respiratory: bilateral: diminished - Cardiovascular Rhythm: regular - Gastrointestinal General gastrointestinal: Present: soft, tender, non-distended, normal bowel sounds, other (+surgical sites) - Labs CBC & Chem 7: 02/07/19 10:01 02/07/19 10:01 Labs: Laboratory Results - last 24 hr 02/07/19 02/07/19 10:01 10:01 WBC 7.9 RBC 2.86 L Hgb 9.7 L Hct 28.0 L MCV 98 H MCH 34 H MCHC 35 H RDW 14.0 Plt Count 288 Sodium 142 Chloride 108.3 H Carbon Dioxide 22 Anion Gap 16 BUN 16 Creatinine 0.7 Estimated GFR > 60 BUN/Creatinine Ratio 23 Glucose 122 H Calcium 7.7 L Total Bilirubin 3.60 H AST 276 H ALT 194 H Alkaline Phosphatase 350 H Total Protein 5.9 L Albumin 2.6 L Albumin/Globulin Ratio 0.8
[2019-02-07 11:29] LABS: Band Neutrophils # (Manual) 0.1 K/mm3; Basophils % (Manual) 0 % (0.0-1.8); Eosinophils % (Manual) 0 % (0.0-4.3); Total Cells Counted 100
[2019-02-07 11:30] LABS: Anisocytosis 1+; Platelet Estimate Consistent w Auto
--- NOTE | 2019-02-07 15:52 | Fluoroscopy Report ---
7 FLUOROSCOPIC IMAGES AT ERCP: 02/06/19 08:00:00 CLINICAL: Cholelithiasis and possible choledocholithiasis. FINDINGS: An initial image shows opacification of a moderately dilated CBD with no filling defects. Subsequent images demonstrate filling defects which appear to be air bubbles. The final image shows no filling defects. For more detail, please refer to the operative report.
--- NOTE | 2019-02-07 16:05 | Operative Report ---
PREOPERATIVE DIAGNOSIS: Acute cholecystitis. POSTOPERATIVE DIAGNOSIS: Acute gangrenous cholecystitis with probable choledocholithiasis. PROCEDURE: Robotic-assisted cholecystectomy with intraoperative cholangiogram. ATTENDING SURGEON: Rylan Calderon MD CLOTH [employer] BACK TENDER: Dr. Hickey ANESTHESIA: General. ESTIMATED BLOOD LOSS: 100 mL FLUIDS: 1 liter. FINDINGS: Enlarged thickened gallbladder that was acutely inflamed, tissue bed was edematous. Significant adhesions were noted between the omentum and the gallbladder as well as surrounding tissue and the triangle of Calot. The gallbladder bed was very friable. Intraoperative cholangiogram suggested obstruction at the distal portion of the common duct and there appeared to be a stone that was floating during the cholangiogram. SPECIMENS: Gallbladder. DRAINS: None. COMPLICATIONS: None. DISPOSITION: Stable, transferred to Recovery Room. INDICATIONS: This is a 48-year-old female who presented with a 5-day history of abdominal pain. Evaluation revealed thickened gallbladder. Initially, her labs other than elevated white count were unremarkable. Later, the LFTs started trending up. GI was consulted. MRCP was done that showed no obstruction. Therefore, recommendation was for laparoscopic cholecystectomy with intraoperative cholangiogram. The procedure, risks, and benefits were explained to the patient. Risks included but were not limited to infection, bleeding, pain, injury to surrounding structures, possible need for open surgery, possible need for further procedures in the future. Of note, the patient also had UTI. She was aware that she was at increased risk, however as we were dealing with an acute cholecystitis situation, we felt that there was more benefit than risk to proceeding now. The patient consented. DESCRIPTION OF PROCEDURE: The patient was brought to the operating room and placed on the table in supine position. After adequate general anesthesia was established, the patient was prepped and draped in the usual sterile fashion. Antibiotics had been administered. SCDs were in place. A time-out was called. I began by placing a Veress needle in the left upper quadrant. I was able to insufflate in the first attempt. We then replaced this with a 5-mm port using the Optiview technique. I entered the peritoneal cavity. There was no injury to the underlying structures. I entered safely. No injuries could be seen as a result of the Veress needle either. The patient was positioned in the head up position and rotated to the left. Additional ports were inserted. A 12-mm port was inserted at the umbilicus and then two more 8-mm ports were inserted on the right side of the abdomen. We replaced the 5-mm port with an 8-mm port under direct vision. I began by peeling off the omentum from the gallbladder. This required extra time to get the omentum off. As expected, gallbladder was very difficult to grab. Then, under direct vision, we inserted an aspiration needle. We aspirated more than 100 mL of bile. This made it a little bit easier to grasp. Once we felt that we had essentially completed all we can do laparoscopically at this point, I inserted two Ray-Tecs into the abdomen and then docked the robot. I proceeded to the console. I began by trying to elevate the gallbladder over the liver edge. It was difficult, however we were able to elevate it somewhat. I tried multiple different rounds to dissect the gallbladder off initially from a top down approach. We went from the sides. It was very thickened tissue, very inflamed, difficult to find a good plane. Ultimately, I placed a stitch in the dome of the gallbladder to use it as a way of elevating the gallbladder over the liver edge and we got much better retraction with this. I was able to proceed and dissect out the triangle of Calot. I dissected the cystic duct very clearly. Cystic artery was divided with the electrocautery. A large critical view was created. Both Dr. Hickey and I agreed we had clearly identified the cystic duct and there were no other ductal structures that could be confused with the cystic artery. We then placed one clip proximally on the cystic duct in relation to the gallbladder. A small opening was made. An additional 5-mm port was inserted on the left side of the abdomen for Dr. Hickey to pass the cholangiogram catheter. I inserted into the duct and then we clamped with De Luna clamp. We were able to easily flush it with saline and then contrast was inserted. Under live fluoroscopy, we injected the contrast. We could see the cystic duct. We had a good length there. We clearly identified the common hepatic duct and the common biliary duct. These were away from the gallbladder. The entire duct filled, however it did not empty into the duodenum. It did appear at the distal aspect of the common bile duct, there was a filling defect and appeared to be a small stone that was bouncing up and down that what we felt to be occluding the common duct. At this point, the plan was to let GI know so that they can move forward with an ERCP. We proceeded to remove the catheter. Two clips were placed distally on the cystic duct in relation to the gallbladder and cystic duct was divided with scissors. We then proceeded to remove the gallbladder from the bed using scissors and electrocautery. Again, the planes were very difficult. It was densely adhered. This required extra time to remove the gallbladder from the bed. However, we were ultimately able to remove it in its entirety. We left it on the side. I checked for hemostasis. There was one edge on the right side of the liver that appeared to be bleeding. We cauterized that area, that worked very well. Everything else seemed to be hemostatic. As a precaution, we thoroughly washed out the area, aspirated it, and then I applied Karina to the gallbladder bed and then covered that with Surgicel. We appeared to have excellent hemostasis. We saw the clips on the cystic duct. There was no bile leak from the cystic duct. There was no active bleeding. After we had thoroughly irrigated and suctioned out everything, we placed the gallbladder in the EndoCatch bag and removed it from the umbilical site. I had to extend the fascial opening in order to get it out. I felt that it would be better for me to close this open and I would get a better closure. Therefore, we desufflated the abdomen, removed all the ports. Using 0 Vicryl stitch, I closed the opening with a [id number] stitch and then I had to place one more simple stitch in order to get complete closure of the fascia. Additional local was injected in all of the sites, 4-0 Monocryl was used to close the skin with subcuticular stitches. Skin was cleaned and dried. Dermabond was placed. The patient tolerated the procedure well. There were no complications. All counts were correct at the end of the case. I examined the gallbladder on the back table. We clearly divided the cystic duct. There were no other ductal structures. JOB# [id number] PETE/CARLOS ENRIQUE
--- NOTE | 2019-02-07 23:55 | Progress Note ---
Assessment and Plan Acute right upper quadrant abdominal pain, improved - Likely from acute cholecystitis - Consulted Gen. surgery, s/p Robotic Assisted Cholecystectomy with IOC on 02/05/19 Sepsis, likely present from admission - had temp, leukocytosis - likely from cholecystitis and UTI - treated with abx UTI, treated with antibiotics, Cx negative probably because obtained after getting abx Elevated LFT, - was normal on admission, -etiology-likely 2/2 GB disease and not underlying liver disease - Consulted GI as LFT trending up -acute hepatitis panel negative, pending autoimmune serologies -CT and MRCP- gallstones and acute cholecystitis but evidence of choledocholithiasis -s/p cholecystectomy with filling defect noted in IOC -s/p ERCP yesterday with cholangiogram w/ small defect-sphinterotomy performed and duct swept with balloon with sludge removed (no obvious stone); negative otherwise - cont to trend Hypokalemia, replete and monitor History of depression and bipolar disorder - Resumed home medications, psych consult if needed Chronic back pain, as needed pain meds HTN, on clonidine and amlodipine. adjust meds as needed DVT prophylaxis, Lovenox/SCD Disposition: likely tomorrow, if LFT improves Brief History: This is a 48-year-old Danish-speaking female with a history of depression, bipolar disorder and chronic back pain presented to the hospital with complaints of right upper quadrant pain for more than a day, with nausea and vomiting. CT abdomen and pelvis consistent with cholecystitis and cholelithiasis. Initial workup also showed elevated white count, UTI. Patient was admitted for further evaluation and management. Radiological data: CT abdomen and pelvis: Cholelithiasis with evidence of acute cholecystitis MRCP: 1. Findings of acute cholecystitis with cholelithiasis. Minimally dilated common bile duct without evidence of choledocholithiasis. 2. Hepatic steatosis. 3. Inflammation of the hepatic flexure of the colon is likely related to the adjace nt cholecystitis. Subjective Date of service: 02/07/19 Principal diagnosis: elevated bilirubin, cholecystitis Interval history: Patient seen and examined LFT trending up, improved RUQ abdominal pain, tolerating diet Objective - Exam Narrative Exam: GENERAL: well-developed and obese female lying on bed appeared to be in no discomfort. HEENT: Normocephalic. Atraumatic. No conjunctival congestion or icterus. Patient has moist mucous membranes. NECK: Supple. Trachea midline. CHEST/LUNGS: Clear to auscultated bilaterally, breathing nonlabored. No wheezes crackles or rhonchi. HEART/CARDIOVASCULAR: Regular in rate and rhythm. S1 and S2 positive. ABDOMEN: no tenderness with guarding, positive for bowel sounds, no mass SKIN: There is no rash. Warm and dry. NEURO: No focal motor deficit. Follows command. MUSCULOSKELETAL: No joint effusion or tenderness. EXTRIMITY: No edema, no cyanosis or clubbing. PSYCH: Cooperative. - Constitutional Vitals: Vital Signs - 12hr 02/07/19 02/07/19 02/07/19 12:46 18:26 21:26 Temperature 98.3 F 97.4 F L 98.2 F Pulse Rate 63 59 L 61 Respiratory 14 16 18 Rate Blood Pressure 146/91 150/85 153/91 O2 Sat by Pulse 100 100 100 Oximetry 02/07/19 02/07/19 21:32 22:19 Temperature 98.2 F Pulse Rate 61 60 Respiratory 16 Rate Blood Pressure 153/91 153/90 O2 Sat by Pulse 99 Oximetry - Labs CBC & Chem 7: 02/07/19 10:01 02/07/19 10:01 Labs: Abnormal lab results 02/07/19 02/07/19 Range/Units 10:01 10:01 RBC 2.86 L (3.65-5.03) M/mm3 Hgb 9.7 L (10.1-14.3) gm/dl Hct 28.0 L (30.3-42.9) % MCV 98 H (79-97) fl MCH 34 H (28-32) pg MCHC 35 H (30-34) % Seg Neuts % (Manual) 76.0 H (40.0-70.0) % Chloride 108.3 H (98-107) mmol/L Glucose 122 H (65-100) mg/dL Calcium 7.7 L (8.4-10.2) mg/dL Total Bilirubin 3.60 H (0.1-1.2) mg/dL AST 276 H (5-40) units/L ALT 194 H (7-56) units/L Alkaline Phosphatase 350 H (35-129) units/L Total Protein 5.9 L (6.3-8.2) g/dL Albumin 2.6 L (3.9-5) g/dL
[2019-02-08] MEDS: NEURONTIN PO SCH ×3 (00:16→22:57)
[2019-02-08] MEDS: REMERON PO SCH ×2 (00:16→22:57)
[2019-02-08] MEDS: KCL 30 MEQ in NACL 0.9% 1000 ML 1,000 ML IV SCH ×2 (02:07→19:01)
[2019-02-08] MEDS: MORPHINE IV PRN ×4 (02:28→21:26)
[2019-02-08 06:10] LABS: Alanine Aminotransferase 208 units/L (7-56); Albumin 2.6 g/dL (3.9-5); BUN/Creatinine Ratio 32; Blood Urea Nitrogen 19 mg/dL (7-17); Calcium 7.6 mg/dL (8.4-10.2); Hemolysis Index 4
[2019-02-08] MEDS ORDERED: ROXICODONE PO PRN (09:18)
[2019-02-08] MEDS: INDERAL PO SCH ×3 (12:30→22:58)
[2019-02-08] MEDS: CYMBALTA PO SCH (12:39)
[2019-02-08] MEDS: COLACE PO SCH (12:39)
[2019-02-08] MEDS: MYSOLINE PO SCH ×2 (12:40→22:58)
[2019-02-08] MEDS: NORVASC PO SCH (12:42)
--- NOTE | 2019-02-08 13:50 | Progress Note ---
Assessment and Plan Assessment and plan: This is a 48-year-old Armenian-speaking female with a history of depression, bipolar disorder and chronic back pain presented to the hospital with complaints of right upper quadrant pain for more than a day, with nausea and vomiting. CT abdomen and pelvis consistent with cholecystitis and cholelithiasis. Initial workup also showed elevated white count, UTI. Patient was admitted for further evaluation and management. Acute right upper quadrant abdominal pain, improved - Likely from acute cholecystitis - Consulted Gen. surgery, s/p Robotic Assisted Cholecystectomy with IOC on 02/05/19 Sepsis, likely present from admission - had temp, leukocytosis - likely from cholecystitis and UTI - treated with abx UTI, treated with antibiotics, Cx negative probably because obtained after getting abx Elevated LFT, - was normal on admission, -etiology-likely 2/2 GB disease and not underlying liver disease - Consulted GI as LFT trending up -acute hepatitis panel negative, pending autoimmune serologies -CT and MRCP- gallstones and acute cholecystitis but evidence of choledocholithiasis -s/p cholecystectomy with filling defect noted in IOC -s/p ERCP yesterday with cholangiogram w/ small defect-sphinterotomy performed and duct swept with balloon with sludge removed (no obvious stone); negative oth erwise - cont to trend Hypokalemia, replete and monitor History of depression and bipolar disorder - Resumed home medications, psych consult if needed Chronic back pain, as needed pain meds HTN, on clonidine and amlodipine. adjust meds as needed DVT prophylaxis, Lovenox/SCD Disposition: likely tomorrow, if LFT improves Radiological data: CT abdomen and pelvis: Cholelithiasis with evidence of acute cholecystitis MRCP: 1. Findings of acute cholecystitis with cholelithiasis. Minimally dilated common bile duct without evidence of choledocholithiasis. 2. Hepatic steatosis. 3. Inflammation of the hepatic flexure of the colon is likely related to the adjacent cholecystitis. History Interval history: Patient was seen in the biopsy this morning, patient's complaining severe right upper quadrant pain. Patient doesn't speak [place] and I use a tier over #[id number]. Hospitalist Physical - Physical exam Narrative exam: Not in cardiopulmonary distress. Vital signs as documented. Head exam is unremarkable. No scleral icterus . Neck is without jugular venous distension, thyromegaly, or carotid bruits. Lungs are clear to auscultation. Cardiac exam reveals regular rate and Rhythm. Abdominal exam reveals normal bowel sounds, mild right upper quadrant pain. Extremities are nonedematous and both femoral and pedal pulses are normal. CHILD WELFARE DIRECTOR: Alert and oriented 3. No focal weakness. - Constitutional Vitals: Temp Pulse Resp BP Pulse Ox 98.3 F 57 L 20 169/84 97 02/08/19 04:51 02/08/19 12:42 02/08/19 12:19 02/08/19 12:42 02/08/19 12:19 Results - Labs CBC & Chem 7: 02/07/19 10:01 02/08/19 04:52 Labs: Laboratory Last Values WBC 7.9 K/mm3 (4.5-11.0) 02/07/19 10:01 RBC 2.86 M/mm3 (3.65-5.03) L 02/07/19 10:01 Hgb 9.7 gm/dl (10.1-14.3) L 02/07/19 10:01 Hct 28.0 % (30.3-42.9) L 02/07/19 10:01 MCV 98 fl (79-97) H 02/07/19 10:01 MCH 34 pg (28-32) H 02/07/19 10:01 MCHC 35 % (30-34) H 02/07/19 10:01 RDW 14.0 % (13.2-15.2) 02/07/19 10:01 Plt Count 288 K/mm3 (140-440) 02/07/19 10:01 Lymph % (Auto) 10.3 % (13.4-35.0) L 02/06/19 05:41 [place] % (Auto) 6.5 % (0.0-7.3) 02/06/19 05:41 Eos % (Auto) 0.0 % (0.0-4.3) 02/06/19 05:41 Baso % (Auto) 0.2 % (0.0-1.8) 02/06/19 05:41 Lymph # 1.1 K/mm3 (1.2-5.4) L 02/06/19 05:41 [place] # 0.7 K/mm3 (0.0-0.8) 02/06/19 05:41 Eos # 0.0 K/mm3 (0.0-0.4) 02/06/19 05:41 Baso # 0.0 K/mm3 (0.0-0.1) 02/06/19 05:41 Add Manual Diff Complete 02/07/19 10:01 Total Counted 100 02/07/19 10:01 Seg Neutrophils % 83.0 % (40.0-70.0) H 02/06/19 05:41 Seg Neuts % (Manual) 76.0 % (40.0-70.0) H 02/07/19 10:01 1.0 % 02/07/19 10:01 18.0 % (13.4-35.0) 02/07/19 10:01 Reactive Lymphs % (Man) 0 % 02/07/19 10:01 5.0 % (0.0-7.3) 02/07/19 10:01 0 % (0.0-4.3) 02/07/19 10:01 0 % (0.0-1.8) 02/07/19 10:01 0 % 02/07/19 10:01 0 % 02/07/19 10:01 0 % 02/07/19 10:01 0 % 02/07/19 10:01 Nucleated RBC % Not Reportable 02/07/19 10:01 Seg Neutrophils # 8.6 K/mm3 (1.8-7.7) H 02/06/19 05:41 Seg Neutrophils # Man 6.0 K/mm3 (1.8-7.7) 02/07/19 10:01 Band Neutrophils # 0.1 K/mm3 02/07/19 10:01 1.4 K/mm3 (1.2-5.4) 02/07/19 10:01 Abs React Lymphs (Man) 0.0 K/mm3 02/07/19 10:01 0.4 K/mm3 (0.0-0.8) 02/07/19 10:01 0.0 K/mm3 (0.0-0.4) 02/07/19 10:01 0.0 K/mm3 (0.0-0.1) 02/07/19 10:01 0.0 K/mm3 02/07/19 10:01 0.0 K/mm3 02/07/19 10:01 0.0 K/mm3 02/07/19 10:01 Blast Cells # 0.0 K/mm3 02/07/19 10:01 WBC Morphology Not Reportable 02/07/19 10:01 Hypersegmented Neuts Not Reportable 02/07/19 10:01 Hyposegmented Neuts Not Reportable 02/07/19 10:01 Hypogranular Neuts Not Reportable 02/07/19 10:01 Not Reportable 02/07/19 10:01 Not Reportable 02/07/19 10:01 Not Reportable 02/07/19 10:01 Not Reportable 02/07/19 10:01 Not Reportable 02/07/19 10:01 Not Reportable 02/07/19 10:01 Consistent w auto 02/07/19 10:01 Not Reportable 02/07/19 10:01 Plt Clumps, EDTA Not Reportable 02/07/19 10:01 Not Reportable 02/07/19 10:01 Not Reportable 02/07/19 10:01 Not Reportable 02/07/19 10:01 Plt Morphology Comment Not Reportable 02/07/19 10:01 RBC Morphology Not Reportable 02/07/19 10:01 Dimorphic RBCs Not Reportable 02/07/19 10:01 Not Reportable 02/07/19 10:01 Not Reportable 02/07/19 10:01 Not Reportable 02/07/19 10:01 1+ 02/07/19 10:01 Not Reportable 02/07/19 10:01 Not Reportable 02/07/19 10:01 Not Reportable 02/07/19 10:01 Not Reportable 02/07/19 10:01 Not Reportable 02/07/19 10:01 Not Reportable 02/07/19 10:01 Not Reportable 02/07/19 10:01 Not Reportable 02/07/19 10:01 Not Reportable 02/07/19 10:01 Not Reportable 02/07/19 10:01 Not Reportable 02/07/19 10:01 Not Reportable 02/07/19 10:01 Not Reportable 02/07/19 10:01 Not Reportable 02/07/19 10:01 Not Reportable 02/07/19 10:01 Acanthocytes (Spur) Not Reportable 02/07/19 10:01 Rouleaux Not Reportable 02/07/19 10:01 Not Reportable 02/07/19 10:01 Not Reportable 02/07/19 10:01 Not Reportable 02/07/19 10:01 Not Reportable 02/07/19 10:01 Hem Pathologist Commnt No 02/07/19 10:01 PT 14.8 Sec. (12.2-14.9) 02/02/19 06:23 INR 1.09 (0.87-1.13) 02/02/19 06:23 APTT 21.9 Sec. (24.2-36.6) L 02/02/19 06:23 Sodium 143 mmol/L (137-145) 02/08/19 04:52 Potassium 4.3 mmol/L (3.6-5.0) 02/08/19 04:52 Chloride 109.2 mmol/L (98-107) H 02/08/19 04:52 Carbon Dioxide 22 mmol/L (22-30) 02/08/19 04:52 16 mmol/L 02/08/19 04:52 BUN 19 mg/dL (7-17) H 02/08/19 04:52 0.6 mg/dL (0.7-1.2) L 02/08/19 04:52 Estimated GFR > 60 ml/min 02/08/19 04:52 32 % 02/08/19 04:52 Glucose 109 mg/dL (65-100) H 02/08/19 04:52 POC Glucose 171 (70-105) H 02/05/19 18:43 Lactic Acid 1.20 mmol/L (0.7-2.0) 02/02/19 13:54 Calcium 7.6 mg/dL (8.4-10.2) L 02/08/19 04:52 509.1 ng/mL (13.0-400.0) H 02/05/19 06:44 2.70 mg/dL (0.1-1.2) H 02/08/19 04:52 2.7 mg/dL (0-0.2) H 02/05/19 06:44 0.2 mg/dL 02/05/19 06:44 AST 183 units/L (5-40) H 02/08/19 04:52 ALT 208 units/L (7-56) H 02/08/19 04:52 389 units/L (35-129) H 02/08/19 04:52 5.4 g/dL (6.3-8.2) L 02/08/19 04:52 2.6 g/dL (3.9-5) L 02/08/19 04:52 0.9 % 02/08/19 04:52 12 units/L (13-60) L 02/02/19 02:22 HCG, Qual Negative (Negative) 02/02/19 02:25 Yellow (Yellow) 02/02/19 02:25 Cloudy (Clear) 02/02/19 02:25 5.0 (5.0-7.0) 02/02/19 02:25 Ur Specific [place] 1.015 (1.003-1.030) 02/02/19 02:25 30 mg/dl mg/dL (Negative) 02/02/19 02:25 Neg mg/dL (Negative) 02/02/19 02:25 Neg mg/dL (Negative) 02/02/19 02:25 Lg (Negative) 02/02/19 02:25 Neg (Negative) 02/02/19 02:25 Neg (Negative) 02/02/19 02:25 < 2.0 mg/dL (<2.0) 02/02/19 02:25 Ur Leukocyte Esterase Lg (Negative) 02/02/19 02:25 > 182.0 /HPF (0.0-6.0) H 02/02/19 02:25 67.0 /HPF (0.0-6.0) 02/02/19 02:25 U Epithel Cells (Auto) 6.0 /HPF (0-13.0) 02/02/19 02:25 1+ /HPF 02/02/19 02:25 Mitochondria M2 Ab <=20.0 U (<=20.0) 02/05/19 06:44 Hepatitis A IgM Ab Non-reactive (NonReactive) 02/06/19 05:41 Hep Bs Antigen Non-reactive (Negative) 02/06/19 05:41 Hep B Core IgM Ab Non-reactive (NonReactive) 02/06/19 05:41 Non-reactive (NonReactive) 02/06/19 05:41 Blood Type O POSITIVE 02/02/19 06:23 Antibody Screen Negative 05/17/19 06:23 Active Medications - Current Medications Current Medications: Generic Name Dose Route Start Last Admin Trade Name Freq PRN Reason Stop Dose Admin Acetaminophen 650 mg 02/03/19 18:29 02/04/19 13:33 Tylenol PO 650 mg Q6H PRN Administration Pain, Mild (1-3) Amlodipine Besylate 10 mg 02/08/19 10:00 02/08/19 12:42 Norvasc PO 10 mg QDAY TIFF Administration Clonidine HCl 0.2 mg 02/06/19 15:00 02/06/19 19:41 Catapres-Tts Patch TD 0.2 mg Tu TIFF Administration Docusate Sodium 100 mg 02/02/19 10:00 02/08/19 12:39 Colace PO 100 mg QDAY TIFF Administration Duloxetine HCl 120 mg 02/02/19 10:00 02/08/19 12:39 Cymbalta PO 120 mg DAILY TIFF Administration Enoxaparin Sodium 40 mg 02/08/19 22:00 Lovenox SUB-Q QDAY@2200 TIFF Gabapentin 300 mg 02/03/19 10:00 02/08/19 12:39 Neurontin PO 300 mg BID TIFF Administration Hydralazine HCl 5 mg 02/02/19 11:43 Apresoline IV Q30MIN PRN Hypertension Potassium Chloride 30 meq/ 1,015 mls @ 75 mls/hr 02/05/19 23:15 02/08/19 02:07 Sodium Chloride IV 75 mls/hr DIRECT TIFF Administration Mirtazapine 45 mg 02/03/19 22:00 02/08/19 00:16 Remeron PO Not Given QHS TIFF Morphine Sulfate 2 mg 02/02/19 09:36 02/08/19 10:07 Morphine IV 2 mg Q4H PRN Administration Pain, Moderate (4-6) Oxycodone HCl 5 mg 02/08/19 09:18 Roxicodone PO Q6H PRN BREAKTHRU Pain, Moderate (4-6) Primidone 250 mg 02/02/19 10:00 02/08/19 12:40 Mysoline PO 250 mg BID TIFF Administration Propranolol HCl 20 mg 02/02/19 10:00 02/08/19 12:30 Inderal PO Not Given BID TIFF Tapentadol 75 mg 02/02/19 09:29 Nucynta PO Q6H PRN Pain, Moderate (4-6) Nutrition/Malnutrition Assess - Dietary Evaluation Nutrition/Malnutrition Findings: Nutrition Notes Start: 02/03/19 14:33 Freq: Status: Active Protocol: Document 02/03/19 14:33 RM (Rec: 02/03/19 14:34 RM [id number]) Nutrition Notes 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 Rafa 20 points. Nutrition Intervention Revisit per MD consult or patient Sign Off request:
--- NOTE | 2019-02-08 17:40 | Gastroenterology Progress Note ---
Assessment and Plan GI: pt s/p lap dilip and ERCP w/ stone removal now increase LFT's - workup for increase lft's negative to date - LFT's improving, would follow - advance deit as tolerated - if LFT's continue to improve in am ok to d/c from GI standpoint - will sign off,call if needed Subjective Date of service: 02/08/19 Principal diagnosis: elevated bilirubin, cholecystitis Interval history: - reports some incision pain, denies other complaints Objective - Constitutional Vitals: Temp Pulse Resp BP Pulse Ox 98.3 F 65 20 184/93 97 02/08/19 04:51 02/08/19 17:22 02/08/19 12:19 02/08/19 17:22 02/08/19 12:19 General appearance: no acute distress - EENT Eyes: PERRL - Respiratory Respiratory: bilateral: CTA - Cardiovascular Rhythm: regular Heart Sounds: Present: S1 & S2 - Gastrointestinal General gastrointestinal: Present: soft, non-tender, non-distended - Labs CBC & Chem 7: 02/07/19 10:01 02/08/19 04:52 Labs: Laboratory Results - last 24 hr 02/05/19 02/05/19 02/08/19 06:44 06:44 04:52 Sodium 143 Potassium 4.3 Chloride 109.2 H Carbon Dioxide 22 Anion Gap 16 BUN 19 H Creatinine 0.6 L Estimated GFR > 60 BUN/Creatinine Ratio 32 Glucose 109 H Calcium 7.6 L Total Bilirubin 2.70 H AST 183 H ALT 208 H Alkaline Phosphatase 389 H Total Protein 5.4 L Albumin 2.6 L Albumin/Globulin Ratio 0.9 Sm ([place]) Antibody <1.0 Mitochondria M2 Ab <=20.0
[2019-02-08] MEDS ORDERED: LOVENOX SUB-Q SCH (22:00)
--- NOTE | 2019-02-09 07:54 | Discharge Summary ---
Providers - Providers Date of Admission: 02/02/19 08:19 Attending physician: ADILIA WILKS MD 02/02/19 11:39 Consult to Physician [CONS] Routine Comment: Consulting Provider: WILBERT CRUZ Physician Instructions: Reason For Exam: cholecystitis 02/04/19 09:08 Consult to Physician [CONS] Routine Comment: MRCP negative for choledoco Consulting Provider: MARK LAN Physician Instructions: Reason For Exam: persistently elevated bilirubin, cholecystitis [facility] Reason for admission: cholecystitis Condition: Stable Pertinent studies: CT abdomen and pelvis ERCP Procedures: Laparascopic cholecystectomy Hospital course: 48-year-old Faroese-speaking female with a history of depression, bipolar disorder and chronic back pain presented to the hospital with complaints of right upper quadrant pain for more than a day, with nausea and vomiting. CT abdomen and pelvis consistent with cholecystitis and cholelithiasis. Initial workup also showed elevated white count, UTI. Patient was admitted for further evaluation and management. Acute right upper quadrant abdominal pain, due to cholecystitis. Consulted Gen. surgery, s/p Robotic Assisted Cholecystectomy with IOC on 02/05/19 Sepsis, likely from cholecystitis and UTI; treated with abx Elevated LFT, likely 2/2 GB disease and not underlying liver disease - Consulted GI and cleared for discharge. -acute hepatitis panel negative -CT and MRCP- gallstones and acute cholecystitis but no evidence of choledocholithiasis -s/p cholecystectomy with filling defect noted in IOC - ERCP yesterday with cholangiogram w/ small defect-sphinterotomy performed and duct swept with balloon with sludge removed (no obvious stone); negative otherwise - cont to trend Hypokalemia, repleted History of depression and bipolar disorder; continue home medications. Chronic back pain, as needed pain meds HTN, on clonidine and amlodipine. Radiological data: CT abdomen and pelvis: Cholelithiasis with evidence of acute cholecystitis MRCP: 1. Findings of acute cholecystitis with cholelithiasis. Minimally dilated common bile duct without evidence of choledocholithiasis. 2. Hepatic steatosis. 3. Inflammation of the hepatic flexure of the colon is likely related to the a djacent cholecystitis. Patient was hemodynamically stable and patient was cleared for discharge by GI and general surgery Disposition: TO HOME OR SELFCARE Time spent for discharge: 32 minutes - Discharge Diagnoses (1) Acute cholecystitis Status: Acute (2) Bipolar disorder Status: Acute Qualifiers: Active/Remission status: in remission of unspecified degree Qualified Code(s): F31.70 - Bipolar disorder, currently in remission, most recent episode unspecified (3) Hyperglycemia Status: Acute Core Measure Documentation - Palliative Care Palliative Care/ Comfort Measures: Not Applicable - Core Measures Any of the following diagnoses?: none Exam - Physical Exam Narrative exam: Not in cardiopulmonary distress. Vital signs as documented. Head exam is unremarkable. No scleral icterus . Neck is without jugular venous distension, thyromegaly, or carotid bruits. Lungs are clear to auscultation. Cardiac exam reveals regular rate and Rhythm. Abdominal exam reveals normal bowel sounds, mild right upper quadrant pain. Extremities are nonedematous and both femoral and pedal pulses are normal. REFUSE COLLECTOR: Alert and oriented 3. No focal weakness. - Constitutional Vitals: Temp Pulse Resp BP Pulse Ox 98.3 F 67 20 144/77 96 02/09/19 06:14 02/09/19 06:14 02/09/19 06:14 02/09/19 06:14 02/09/19 06:14 Plan Activity: no restrictions Weight Bearing Status: Full Weight Bearing Diet: advance as tolerated Follow up with: DALY ZHONG MD [Primary Care Provider] - 3-5 Days MARK LAN MD [Staff Physician] - 14 Days Prescriptions: Mirtazapine [Remeron 15mg TAB] 45 mg PO QHS #15 tablet amLODIPine [Norvasc] 10 mg PO QDAY #30 tablet oxyCODONE [roxiCODONE] 5 mg PO Q6H PRN #12 tablet PRN Reason: BREAKTHRU Pain, Moderate (4-6)
[2019-02-09 08:00] LABS: Alanine Aminotransferase 282 units/L (7-56); Albumin 2.6 g/dL (3.9-5); BUN/Creatinine Ratio 18; Blood Urea Nitrogen 7 mg/dL (7-17); Calcium 7.7 mg/dL (8.4-10.2); Hemolysis Index 21
[2019-02-09] MEDS: INDERAL PO SCH (09:32)
[2019-02-09] MEDS: CYMBALTA PO SCH (09:32)
[2019-02-09] MEDS: NORVASC PO SCH (09:33)
[2019-02-09] MEDS: MYSOLINE PO SCH (09:33)
[2019-02-09] MEDS: COLACE PO SCH (09:33)
[2019-02-09] MEDS: NEURONTIN PO SCH (09:33)
[2019-02-09 09:34] VITALS: BP 144/78
[2019-02-09 22:52] LABS: ANA Screen, IFA Negative (Negative)
--- NOTE | 2019-03-14 16:50 | Operative Report ---
PROCEDURE PERFORMED: ERCP with sphincterotomy. INDICATION: Choledocholithiasis. MEDICATIONS: Propofol per [employer] ELECTRICAL ENGINEER. COMPLICATIONS: None. DESCRIPTION OF PROCEDURE: The patient was brought to procedure suite. The patient had the procedure discussed with her at length. All risks, complications, and benefits discussed, after which the patient signed for the procedure to be performed. The patient was placed in left lateral decubitus position. Mouth block was placed in the patient's oral cavity. After adequate sedation medication as above, endoscope was introduced into the mouth and brought to the level of the second portion of duodenum. Retroflexion view was performed. The patient's vital signs remained stable throughout the procedure. FINDINGS: There was grossly normal-appearing esophagus and stomach. There was an ampulla, which appeared unchanged noted second portion of duodenum. Sphincterotome was then inserted and cholangiogram performed. Cholangiogram showed a small filling defect in the mid to distal common bile duct. A small to medium size sphincterotomy was performed. A 9-12 mm balloon was then used to sweep the common bile duct with noted small amount of sludge and debris removed. No obvious other stones were noted. No pancreatogram was performed. No interventions were performed. The patient tolerated the procedure well. No complications during the procedure. IMPRESSIONS: 1. Benign-appearing esophagus and stomach. 2. Normal ampulla. 3. Cholangiogram with a small defect. 4. Sphincterotomy performed. 5. Sludge removed. 6. No interventions performed. RECOMMENDATIONS: 1. Follow labs. 2. Advance diet. 3. Okay to discharge from a GI standpoint. JOB# [id number] CAB/NTS
== END 2019-02-09 10:05 | disposition home or self-care (01) | DRG 854 ==
LOC: ED 02:05 → 3A 08:19
PROVIDERS: ADMIT Internal Medicine; ATTEND Internal Medicine
PROC: 0FT44ZZ Resection of Gallbladder, Percutaneous Endoscopic Approach (ICD-10-PCS; principal; 2019-02-05)
PROC: 8E0W4CZ Robotic Assisted Procedure of Trunk Region, Percutaneous Endoscopic Approach (ICD-10-PCS; 2019-02-05)
PROC: 0DNU4ZZ Release Omentum, Percutaneous Endoscopic Approach (ICD-10-PCS; 2019-02-05)
PROC: BF131ZZ Fluoroscopy of Gallbladder and Bile Ducts using Low Osmolar Contrast (ICD-10-PCS; 2019-02-05)
PROC: 0F798ZZ Dilation of Common Bile Duct, Via Natural or Artificial Opening Endoscopic (ICD-10-PCS; 2019-02-06)
PROC: BF141ZZ Fluoroscopy of Gallbladder, Bile Ducts and Pancreatic Ducts using Low Osmolar Contrast (ICD-10-PCS; 2019-02-06)
DX: A41.9 Sepsis, unspecified organism (principal); N39.0 Urinary tract infection, site not specified; K80.00 Calculus of gallbladder with acute cholecystitis without obstruction; F31.70 Bipolar disorder, currently in remission, most recent episode unspecified; R73.9 Hyperglycemia, unspecified; G89.29 Other chronic pain; M54.9 Dorsalgia, unspecified; G43.909 Migraine, unspecified, not intractable, without status migrainosus; I10 Essential (primary) hypertension; E87.6 Hypokalemia; E66.9 Obesity, unspecified; K66.0 Peritoneal adhesions (postprocedural) (postinfection); Z90.49 Acquired absence of other specified parts of digestive tract; Z79.899 Other long term (current) drug therapy; Z68.21 Body mass index [BMI] 21.0-21.9, adult
CPT/HCPCS: 36415; 71045; 74176; 74181; 74300; 74328; 80053; 80074; 81001; 81025; 82140; 82247; 82248; 82728; 82962; 83520; 83690; 84703; 85007; 85025; 85610; 85730; 86038; 86235; 86850; 86900; 86901; 87086; 88304; 93005; 93010; G0378; A4217; C1726; J0690; J0696; J1100; J1170; J1650; J1885; J2250; J2270; J2405; J2543; J2704; J2710; J3010; J3480; J7030; J7042; J7050; Q9967

== ENCOUNTER 2020-05-19 17:47 | Emergency (ER) | payer MEDICARE ==
[2020-05-19 18:53] VITALS: BP 126/85
--- NOTE | 2020-05-19 19:15 | Event Note ---
ED Screening Note Date of service: 05/19/20 Time: 19:13 ED Screening Note: 49-year-old female presents complaining of left-sided flank pain worsening the past 4 days. This initial assessment/diagnostic orders/clinical plan/treatment(s) is/are subject to change based on patients health status, clinical progression and re- assessment by fellow clinical providers in the ED. Further treatment and workup at subsequent clinical providers discretion. Patient/guardian urged not to elope from the ED as their condition may be serious if not clinically assessed and managed. Initial orders include: UA, UPT, KUB
[2020-05-19 19:55] LABS: HCG Qualitative,Urine Negative (Negative)
[2020-05-19 20:04] LABS: Bilirubin,Urine NEG (Negative); Blood,Urine MOD (Negative); Color,Urine Yellow (Yellow); Protein,Urine <15 mg/dL mg/dL (Negative); Urobilinogen,Urine < 2.0 mg/dL (<2.0)
[2020-05-19 20:08] LABS: Basophils % (Auto) 0.4 % (0.0-1.8); Eosinophils # (Auto) 0.1 K/mm3 (0.0-0.4); Eosinophils % (Auto) 1.7 % (0.0-4.3); Lymphocytes # (Auto) 2.8 K/mm3 (1.2-5.4); Lymphocytes % (Auto) 36.3 % (13.4-35.0); Mean Corpuscular HGB Conc 36 % (30-34); Mean Corpuscular Volume 96 fl (79-97); Monocytes # (Auto) 0.5 K/mm3 (0.0-0.8); Monocytes % (Auto) 6.5 % (0.0-7.3); Platelet Count 227 K/mm3 (140-440); Red Blood Count 4.31 M/mm3 (3.65-5.03); Red Cell Distribution Width 12.8 % (13.2-15.2)
[2020-05-19 20:09] LABS: Hematocrit 41.2 % (30.3-42.9); Hemoglobin 14.8 gm/dl (10.1-14.3)
[2020-05-19 20:16] LABS: Alanine Aminotransferase 29 units/L (7-56); Albumin 4.3 g/dL (3.9-5); BUN/Creatinine Ratio 11; Blood Urea Nitrogen 9 mg/dL (7-17); Calcium 9.1 mg/dL (8.4-10.2); Hemolysis Index 22
[2020-05-19 20:20] LABS: RBC,Urine < 1.0 /HPF (0.0-6.0); WBC,Urine < 1.0 /HPF (0.0-6.0)
[2020-05-19] MEDS ORDERED: MORPHINE 4 MG/1 ML INJ IM ONE (20:53)
[2020-05-19] MEDS ORDERED: ONDANSETRON 4 MG/2 ML INJ IM ONE (20:53)
--- NOTE | 2020-05-19 20:53 | XRay Report ---
ABDOMEN 1 VIEW(S) INDICATION: pain upt neg COMPARISON: None available. FINDINGS: Bowel gas pattern: Within normal limits. No dilated loops of large or small bowel. Free air: None. Calcified gallstones: None seen. Calcified urinary tract calculi: None seen. Additional Findings: None. Skeletal structures: No acute abnormality. IMPRESSION: 1. No acute findings. Signer Name: Morgan Jauregui MD Signed: 05/19/2020 8:48 PM Workstation Name: [id number]
--- NOTE | 2020-05-19 20:57 | Emergency Department Report ---
ED Back Pain/Injury HPI - General Chief Complaint: Abdominal Pain Stated Complaint: BACK PAIN Time Seen by Provider: 05/19/20 20:09 Source: patient Limitations: Language Barrier - History of Present Illness Initial Comments: Patient is 49 years old female with history of chronic back pain status post surgery. Patient presented to the ER complaining of lower back pain stated that similar to her back pain is just getting severe. Patient denied any weakness, numbness or tingling sensation. No bowel or bladder incontinence. Patient also denied any recent trauma. She also denied any fever or chills. MD Complaint: back pain -: Gradual, days(s) Radiation: none Severity: moderate Severity scale (0 -10): 5 Quality: sharp, dull Consistency: constant Improves With: immobilization Worsens With: movement Associated Symptoms: denies other symptoms - Related Data Home Medications Medication Instructions Recorded Confirmed Last Taken Meloxicam [Mobic] 7.5 mg PO BID 05/24/14 02/03/19 05/16/17 Quetiapine Fumarate [SEROquel XR] 600 mg PO QHS 05/24/14 05/17/17 05/16/17 Primidone [Mysoline] 250 mg PO BID 07/17/14 05/17/17 05/16/17 Tapentadol (Nf) [Nucynta (Nf)] 75 mg PO Q6H PRN 07/17/14 05/17/17 05/16/17 Docusate Sodium [Colace CAP] 100 mg PO QDAY 08/26/15 02/03/19 05/16/17 propranoloL [Inderal] 20 mg PO BID 05/17/17 05/17/17 05/16/17 Gabapentin Enacarbil [Horizant] 600 mg PO BID 02/03/19 02/03/19 Unknown Milnacipran HCl [Savella] 50 mg PO BID 02/03/19 02/03/19 Unknown Mirtazapine [Remeron 45mg TAB] 45 mg PO QHS 02/03/19 02/03/19 Unknown Vortioxetine Hydrobromide 20 mg PO QAM 02/03/19 02/03/19 Unknown [Trintellix] Previous Rx's Medication Instructions Recorded Last Taken Type Gabapentin Enacarbil [Horizant] 300 mg PO BID #60 tab-cap 05/17/17 Unknown Rx traMADoL [Ultram 50 MG tab] 50 mg PO Q6HR PRN #12 tablet 09/16/17 Unknown Rx Mirtazapine [Remeron 15mg TAB] 45 mg PO QHS #15 tablet 02/09/19 Unknown Rx amLODIPine 10 mg PO QDAY #30 tablet 02/09/19 Unknown Rx oxyCODONE [roxiCODONE] 5 mg PO Q6H PRN #12 tablet 02/09/19 Unknown Rx Allergies Allergy/AdvReac Type Severity Reaction Status Date / Time No Known Allergies Allergy Verified 05/19/20 18:49 ED Review of Systems ROS: Stated complaint: BACK PAIN Other details as noted in HPI Comment: All other systems reviewed and negative Constitutional: denies: chills, fever Respiratory: denies: cough Cardiovascular: denies: chest pain, palpitations Gastrointestinal: denies: abdominal pain, nausea, vomiting Musculoskeletal: back pain Neurological: denies: headache, weakness, numbness, paresthesias, confusion, abnormal gait ED Past Medical Hx - Past Medical History Hx Congestive Heart Failure: No Hx Diabetes: No Hx Headaches / Migraines: Yes Hx Psychiatric Treatment: Yes (depression, bipolar) Hx Asthma: No Hx COPD: No 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 - Surgical History Hx Appendectomy: Yes Additional Surgical History: back surguries, previous discectomy - Social History Smoking Status: Never Smoker Substance Use Type: None - Medications Home Medications: Home Medications Medication Instructions Recorded Confirmed Last Taken Type Meloxicam [Mobic] 7.5 mg PO BID 05/24/14 02/03/19 05/16/17 History Quetiapine Fumarate [SEROquel XR] 600 mg PO QHS 05/24/14 05/17/17 05/16/17 History Primidone [Mysoline] 250 mg PO BID 07/17/14 05/17/17 05/16/17 History Tapentadol (Nf) [Nucynta (Nf)] 75 mg PO Q6H PRN 07/17/14 05/17/17 05/16/17 History Docusate Sodium [Colace CAP] 100 mg PO QDAY 08/26/15 02/03/19 05/16/17 History Gabapentin Enacarbil [Horizant] 300 mg PO BID #60 tab-cap 05/17/17 Unknown Rx propranoloL [Inderal] 20 mg PO BID 05/17/17 05/17/1705/16/17 History traMADoL [Ultram 50 MG tab] 50 mg PO Q6HR PRN #12 tablet 09/16/17 02/03/19 Unknown Rx Gabapentin Enacarbil [Horizant] 600 mg PO BID 02/03/19 02/03/19 Unknown History Milnacipran HCl [Savella] 50 mg PO BID 02/03/19 02/03/19 Unknown History Mirtazapine [Remeron 45mg TAB] 45 mg PO QHS 02/03/19 02/03/19 Unknown History Vortioxetine Hydrobromide 20 mg PO QAM 02/03/19 02/03/19 Unknown History [Trintellix] Mirtazapine [Remeron 15mg TAB] 45 mg PO QHS #15 tablet 02/09/19 Unknown Rx amLODIPine 10 mg PO QDAY #30 tablet 02/09/19 Unknown Rx oxyCODONE [roxiCODONE] 5 mg PO Q6H PRN #12 tablet 02/09/19 Unknown Rx ED Physical Exam - General Limitations: Language Barrier General appearance: alert, in no apparent distress - Head Head exam: Present: atraumatic, normocephalic, normal inspection - Eye Eye exam: Present: normal appearance - ENT ENT exam: Present: normal exam, normal orophraynx, mucous membranes moist - Neck Neck exam: Present: normal inspection, full ROM. Absent: tenderness, meningismus - Respiratory Respiratory exam: Present: normal lung sounds bilaterally - Cardiovascular Cardiovascular Exam: Present: regular rate, normal rhythm, normal heart sounds - GI/Abdominal GI/Abdominal exam: Present: soft, normal bowel sounds. Absent: distended, tenderness, guarding, rebound, organomegaly, mass, bruit, pulsatile mass, hernia - Extremities Exam Extremities exam: Present: normal inspection, full ROM, normal capillary refill - Back Exam Back exam: Present: full ROM. Absent: tenderness, CVA tenderness (R), CVA tenderness (L), muscle spasm, paraspinal tenderness, vertebral tenderness - Neurological Exam Neurological exam: Present: alert, oriented X3, CN II-XII intact, normal gait, reflexes normal. Absent: motor sensory deficit - Psychiatric Psychiatric exam: Present: normal mood - Skin Skin exam: Present: warm, intact ED Course Vital Signs 05/19/20 18:50 Temperature 98.2 F Pulse Rate 79 Respiratory 17 Rate Blood Pressure 126/85 O2 Sat by Pulse 99 Oximetry ED Medical Decision Making - Lab Data Result diagrams: 05/19/20 19:33 05/19/20 19:33 - Radiology Data Radiology results: report reviewed - Medical Decision Making Patient is 49 years old female with history of chronic back pain status post surgery. Patient presented to the ER complaining of lower back pain stated that similar to her back pain is just getting severe. Patient denied any weakness, numbness or tingling sensation. No bowel or bladder incontinence. Patient also denied any recent trauma. She also denied any fever or chills. Lab reviewed and is unremarkable. Abdominal x-ray is negative for acute finding. Patient received morphine for pain. Patient also given prescription for tramadol and Zofran and advised to follow-up with her primary doctor in the next 2 to 3 days and to return to the ER she develop any new symptoms. Critical care attestation.: If time is entered above; I have spent that time in minutes in the direct care of this critically ill patient, excluding procedure time. ED Disposition Clinical Impression: Back pain Disposition: DC-01 TO HOME OR SELFCARE Is pt being admited?: No Condition: Stable Instructions: Abdominal Pain (ED), Lumbar Radiculopathy (ED), Low Back Strain (ED) Referrals: PRIMARY CARE, [Primary Care Provider] - 3-5 Days
== END 2020-05-19 21:30 | disposition home or self-care (01) ==
LOC: ED 17:47
DX: M54.5 Low back pain (principal); F31.9 Bipolar disorder, unspecified; Z79.899 Other long term (current) drug therapy; Z98.890 Other specified postprocedural states
CPT/HCPCS: 36415; 74018; 80053; 81001; 81025; 85025; 96372; 99284; J2270; J2405

== ENCOUNTER 2021-08-07 14:22 | Emergency (ER) | payer MEDICARE ==
[2021-08-07] MEDS ORDERED: MORPHINE 4 MG/1 ML INJ IV ONE (15:04)
[2021-08-07] MEDS ORDERED: ONDANSETRON 4 MG/2 ML INJ IV ONE (15:04)
[2021-08-07] MEDS ORDERED: SODIUM CHLORIDE 0.9% 1000 ML 1,000 ML IV ONE (15:04)
[2021-08-07 15:12] LABS: Basophils % (Auto) 0.2 % (0.0-1.8); Eosinophils % (Auto) 0.1 % (0.0-4.3); Hematocrit 46.9 % (30.3-42.9); Hemoglobin 15.9 gm/dl (10.1-14.3); Lymphocytes # (Auto) 1.7 K/mm3 (1.2-5.4); Lymphocytes % (Auto) 11.4 % (13.4-35.0); Mean Corpuscular HGB Conc 34 % (30-34); Mean Corpuscular Volume 95 fl (79-97); Monocytes # (Auto) 0.7 K/mm3 (0.0-0.8); Monocytes % (Auto) 4.4 % (0.0-7.3); Platelet Count 205 K/mm3 (140-440); Red Blood Count 4.92 M/mm3 (3.65-5.03); Red Cell Distribution Width 12.5 % (13.2-15.2)
[2021-08-07 15:21] LABS: Alanine Aminotransferase 135 units/L (7-56); Albumin 4.3 g/dL (3.9-5); BUN/Creatinine Ratio 16; Blood Urea Nitrogen 13 mg/dL (7-17); Calcium 9.6 mg/dL (8.4-10.2); Hemolysis Index 15
--- NOTE | 2021-08-07 15:29 | Emergency Department Report ---
HPI - General Chief Complaint: Nausea/Vomiting/Diarrhea Time Seen by Provider: 08/07/21 14:40 - HPI HPI: 51-year-old female presents to the emergency department with a complaint of a 2- day history of generalized abdominal pain, back pain, nausea with vomiting, and some pain and weakness in the bilateral lower extremities. She denies any fever, problems with bowel or bladder, numbness or paresthesias, or any neurological deficits. She says that her abdominal pain is currently 9 out of 10 in intensity. No known aggravating or alleviating factors. Patient has a history of appendectomy and cholecystectomy. She also has a history of lumbar spine surgery in which she says that she had 2 disks removed. She has not taken anything for symptoms prior to presentation today. No recent travel or sick contacts at home. ED Past Medical Hx - Past Medical History Hx Congestive Heart Failure: No Hx Diabetes: No Hx Headaches / Migraines: Yes Hx Psychiatric Treatment: Yes (depression, bipolar) Hx Asthma: No Hx COPD: No 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 - Surgical History Hx Appendectomy: Yes Additional Surgical History: back surguries, previous discectomy - Social History Smoking Status: Never Smoker - Medications Home Medications: Home Medications Medication Instructions Recorded Confirmed Last Taken Type Meloxicam [Mobic] 7.5 mg PO BID 05/24/14 02/03/19 05/16/17 History Quetiapine Fumarate [SEROquel XR] 600 mg PO QHS 05/24/14 05/17/17 05/16/17 History Primidone [Mysoline] 250 mg PO BID 07/17/14 05/17/17 05/16/17 History Tapentadol (Nf) [Nucynta (Nf)] 75 mg PO Q6H PRN 07/17/14 05/17/17 05/16/17 History Docusate Sodium [Colace CAP] 100 mg PO QDAY 08/26/15 02/03/19 05/16/17 History Gabapentin Enacarbil [Horizant] 300 mg PO BID #60 tab-cap 05/17/17 Unknown Rx propranoloL [Inderal] 20 mg PO BID 05/17/17 05/17/17 05/16/17 History traMADoL [Ultram 50 MG tab] 50 mg PO Q6HR PRN #12 tablet 09/16/17 02/03/19 Unknown Rx Gabapentin Enacarbil [Horizant] 600 mg PO BID 02/03/19 02/03/19 Unknown History Milnacipran HCl [Savella] 50 mg PO BID 02/03/19 02/03/19 Unknown History Mirtazapine [Remeron 45mg TAB] 45 mg PO QHS 02/03/19 02/03/19 Unknown History Vortioxetine Hydrobromide 20 mg PO QAM 02/03/19 02/03/19 Unknown History [Trintellix] Mirtazapine [Remeron 15mg TAB] 45 mg PO QHS #15 tablet 02/09/19 Unknown Rx amLODIPine 10 mg PO QDAY #30 tablet 02/09/19 Unknown Rx oxyCODONE [roxiCODONE] 5 mg PO Q6H PRN #12 tablet 02/09/19 Unknown Rx Ondansetron [Zofran Odt] 4 mg PO Q8HR PRN #20 tab.rapdis 05/19/20 Unknown Rx traMADoL [Ultram 50 MG tab] 50 mg PO Q4HR PRN #20 tablet 05/19/20 Unknown Rx levoFLOXacin [Levaquin] 750 mg PO QDAY #6 tablet 08/07/21 Unknown Rx ED Review of Systems ROS: Stated complaint: WEAKNESS Other details as noted in HPI Comment: All other systems reviewed and negative Constitutional: denies: chills, fever Eyes: denies: eye pain, vision change ENT: denies: ear pain, throat pain Respiratory: denies: cough, shortness of breath Cardiovascular: denies: chest pain, palpitations Gastrointestinal: abdominal pain, nausea, vomiting Genitourinary: denies: dysuria, discharge Musculoskeletal: back pain, myalgia Skin: denies: rash, lesions Neurological: weakness. denies: headache, numbness, paresthesias Physical Exam - Physical Exam Vital Signs: Vital Signs 08/07/21 14:32 Temperature 97.7 F Pulse Rate 98 H Respiratory 15 Rate Blood Pressure 118/78 O2 Sat by Pulse 94 Oximetry Physical Exam: GENERAL: The patient is well-developed well-nourished. HENT: Normocephalic. Atraumatic. Patient has moist mucous membranes. EYES: Extraocular motions are intact. NECK: Supple. Trachea is midline. CHEST/LUNGS: Clear to auscultation. There is no respiratory distress noted. HEART/CARDIOVASCULAR: Regular. There is no tachycardia. There is no murmur. ABDOMEN: Abdomen is soft. Generalized abdominal tenderness to palpation. No guarding. Patient has normal bowel sounds. There is no abdominal distention. SKIN: Skin is warm and dry. NEURO: The patient is awake, alert, and oriented. The patient is cooperative. The patient has no focal neurologic deficits. Normal speech. MUSCULOSKELETAL: There is no tenderness or deformity. There is no limitation range of motion. Muscle strength 5 out of 5 upper and lower extremities bilaterally. BACK: There is bilateral paraspinal lumbar and thoracic tenderness to palpation. No midline thoracic or lumbar tenderness to palpation. ED Course Vital Signs 08/07/21 14:32 Temperature 97.7 F Pulse Rate 98 H Respiratory 15 Rate Blood Pressure 118/78 O2 Sat by Pulse 94 Oximetry ED Medical Decision Making - Lab Data Result diagrams: 08/07/21 14:57 08/07/21 14:57 Lab Results 08/07/21 08/07/21 08/07/21 Range/Units 14:57 14:57 14:57 WBC 15.0 H (4.5-11.0) K/mm3 RBC 4.92 (3.65-5.03) M/mm3 Hgb 15.9 H (10.1-14.3) gm/dl Hct 46.9 H (30.3-42.9) % MCV 95 (79-97) fl MCH 32 (28-32) pg MCHC 34 (30-34) % RDW 12.5 L (13.2-15.2) % Plt Count 205 (140-440) K/mm3 Lymph % (Auto) 11.4 L (13.4-35.0) % [place] % (Auto) 4.4 (0.0-7.3) % Eos % (Auto) 0.1 (0.0-4.3) % Baso % (Auto) 0.2 (0.0-1.8) % Lymph # (Auto) 1.7 (1.2-5.4) K/mm3 [place] # (Auto) 0.7 (0.0-0.8) K/mm3 Baso # (Auto) 0.0 (0.0-0.1) K/mm3 Seg Neutrophils % 83.9 H (40.0-70.0) % Seg Neutrophils # 12.6 H (1.8-7.7) K/mm3 Sodium 138 (137-145) mmol/L Potassium 4.4 (3.6-5.0) mmol/L Chloride 98.5 (98-107) mmol/L Carbon Dioxide 26 (22-30) mmol/L Anion Gap 18 mmol/L BUN 13 (7-17) mg/dL Creatinine 0.8 (0.6-1.2) mg/dL Estimated GFR > 60 ml/min BUN/Creatinine Ratio 16 % Glucose 195 H (65-100) mg/dL Calcium 9.6 (8.4-10.2) mg/dL Total Bilirubin 0.70 (0.1-1.2) mg/dL AST 112 H (5-40) units/L ALT 135 H (7-56) units/L Alkaline Phosphatase 88 (35-129) units/L Total Protein 7.6 (6.3-8.2) g/dL Albumin 4.3 (3.9-5) g/dL Albumin/Globulin Ratio 1.3 % Lipase 14 (13-60) units/L Urine Color (Yellow) Urine Turbidity (Clear) Urine pH (5.0-7.0) Ur Specific [place] (1.003-1.030) Urine Protein (Negative) mg/dL Urine Glucose (UA) (Negative) mg/dL Urine Ketones (Negative) mg/dL Urine Blood (Negative) Urine Nitrite (Negative) Urine Bilirubin (Negative) Urine Urobilinogen (<2.0) mg/dL Ur Leukocyte Esterase (Negative) Urine WBC (Auto) (0.0-6.0) /HPF Urine RBC (Auto) (0.0-6.0) /HPF U Epithel Cells (Auto) (0-13.0) /HPF 08/07/21 Range/Units 16:30 WBC (4.5-11.0) K/mm3 RBC (3.65-5.03) M/mm3 Hgb (10.1-14.3) gm/dl Hct (30.3-42.9) % MCV (79-97) fl MCH (28-32) pg MCHC (30-34) % RDW (13.2-15.2) % Plt Count (140-440) K/mm3 Lymph % (Auto) (13.4-35.0) % [place] % (Auto) (0.0-7.3) % Eos % (Auto) (0.0-4.3) % Baso % (Auto) (0.0-1.8) % Lymph # (Auto) (1.2-5.4) K/mm3 [place] # (Auto) (0.0-0.8) K/mm3 Baso # (Auto) (0.0-0.1) K/mm3 Seg Neutrophils % (40.0-70.0) % Seg Neutrophils # (1.8-7.7) K/mm3 Sodium (137-145) mmol/L Potassium (3.6-5.0) mmol/L Chloride (98-107) mmol/L Carbon Dioxide (22-30) mmol/L Anion Gap mmol/L BUN (7-17) mg/dL Creatinine (0.6-1.2) mg/dL Estimated GFR ml/min BUN/Creatinine Ratio % Glucose (65-100) mg/dL Calcium (8.4-10.2) mg/dL Total Bilirubin (0.1-1.2) mg/dL AST (5-40) units/L ALT (7-56) units/L Alkaline Phosphatase (35-129) units/L Total Protein (6.3-8.2) g/dL Albumin (3.9-5) g/dL Albumin/Globulin Ratio % Lipase (13-60) units/L Urine Color Straw (Yellow) Urine Turbidity Clear (Clear) Urine pH 6.0 (5.0-7.0) Ur Specific [place] > 1.059 H (1.003-1.030) Urine Protein <15 mg/dl (Negative) mg/dL Urine Glucose (UA) Neg (Negative) mg/dL Urine Ketones Neg (Negative) mg/dL Urine Blood Mod (Negative) Urine Nitrite Neg (Negative) Urine Bilirubin Neg (Negative) Urine Urobilinogen < 2.0 (<2.0) mg/dL Ur Leukocyte Esterase Tr (Negative) Urine WBC (Auto) 8.0 H (0.0-6.0) /HPF Urine RBC (Auto) 1.0 (0.0-6.0) /HPF U Epithel Cells (Auto) 4.0 (0-13.0) /HPF - Radiology Data Radiology results: report reviewed, image reviewed interpreted by me: Chest x-ray does not show any acute process. There are no pleural effusions, obvious pneumonia and there is no pneumothorax. No widened mediastinum. Abdominal x-ray shows nonspecific nonobstructive bowel gas. No free air. CT ABDOMEN AND PELVIS WITH CONTRAST INDICATION / CLINICAL INFORMATION: Unspecified abdominal and back pain for 2 days. TECHNIQUE: Axial CT images were obtained through the abdomen and pelvis after 100 cc Omnipaque [address] scans at this location are performed using CT dose reduction for ALARA by means of automated exposure control. COMPARISON: CT abdomen and pelvis without contrast from 02/02/2019. FINDINGS: LOWER CHEST: No significant abnormality. LIVER: There is hepatic stenosis without other significant abnormalities. GALLBLADDER: Interval cholecystectomy. BILE DUCTS: No significant abnormality. PANCREAS: No significant abnormality. SPLEEN: No significant abnormality. ADRENALS: No significant abnormality. KIDNEYS / URETERS: A simple cyst is seen medially along the mid pole of the right kidney measuring up to 9 mm. No other significant abnormalities. STOMACH / SMALL BOWEL: No significant abnormality. COLON: There is generalized mild/moderate thickening of the colon with mild surrounding inflammation. No significant dilatation or other significant abnormality. APPENDIX: Prior appendectomy. PERITONEUM: No free fluid. No free air. No fluid collection. LYMPH NODES: No significant adenopathy. AORTA / ARTERIES: No significant abnormality. IVC / VEINS: No significant abnormality. URINARY BLADDER: No significant abnormality. REPRODUCTIVE ORGANS: A probable Bartholin gland cyst is again seen centered to the right of midline measuring up to 3 cm. No other significant abnormality. ADDITIONAL FINDINGS: None. BONES: No significant abnormality. IMPRESSION: 1. Uncomplicated acute pancolitis. 2. Additional findings as above. - Medical Decision Making This patient presents with a 2-day history of abdominal pain, back pain, bilateral lower extremity pain and complaint of some weakness. On examination she has reproducible abdominal tenderness to palpation, but the abdomen is soft, nondistended and nontoxic in appearance. There is bilateral paraspinal tenderness to palpation of the thoracic and lumbar back, but no midline TTP. She has full muscle strength 5-5 for upper and lower extremities bilaterally. Labs show a mild leukocytosis of 15,000, and the patient has transaminitis with levels about 120. Abdominal x-ray shows nonspecific nonobstructive bowel gas. Chest x-ray does not show any pneumonia, pleural effusions, pneumothorax, widened mediastinum, or any other acute process. Patient was given IV antiemetic, and IV analgesia, IV fluid resuscitation. CT of the abdomen pelvis shows pancolitis. There was some mention of a possible Bartholin gland cyst, but the patient denies any vaginal or labial pain or swelling. She was reevaluated multiple times over multiple hours and is feeling improved. The patient was able to ambulate throughout the emergency department and both appears and feels stable. Her back pain is chronic. She denies any problems with bowel or bladder, numbness or paresthesias, and does not appear to have any weakness despite her complaint. Patient will be discharged home to follow-up with primary care and gastroenterology. She has been placed on an antibiotic for her colitis. She will return to the emergency department with any worsening of her symptoms or with any acute distress. Critical Care Time: No Critical care attestation.: If time is entered above; I have spent that time in minutes in the direct care of this critically ill patient, excluding procedure time. ED Disposition Clinical Impression: Colitis, Hepatic steatosis, Transaminitis Disposition: 01 HOME / SELF CARE / HOMELESS Is pt being admited?: No Condition: Stable Instructions: Colitis, Nonalcoholic Fatty Liver Disease Diet, Adult Additional Instructions: Please follow-up with a primary care physician in the next few days. I am giving you a referral for [facility] to follow-up regarding your elevated liver enzymes and colitis. Take the antibiotics as prescribed. Return to the emergency department with any worsening of your symptoms, new or concerning symptoms not addressed during this current emergency department visit, or with any acute distress. Prescriptions: levoFLOXacin [Levaquin] 750 mg PO QDAY #6 tablet Referrals: DAVID SHIN MD [Primary Care Provider] - 3-5 Days [facility] [Provider Group] - 3-5 Days Time of Disposition: 17:32 Print Language: [place]
--- NOTE | 2021-08-07 15:45 | XRay Report ---
ABDOMEN 4 VIEW(S) INDICATION / CLINICAL INFORMATION: abd pain, weakness. COMPARISON: Radiographs 05/19/2020 FINDINGS: TUBES / LINES: None. BOWEL GAS PATTERN: No significant abnormality. FREE AIR / EXTRALUMINAL GAS: None seen. ADDITIONAL FINDINGS: No acute findings on the included chest radiograph. IMPRESSION: 1. No significant abnormality. Signer Name: Zhou Menendez MD Signed: 08/07/2021 3:40 PM Workstation Name: [id number]
--- NOTE | 2021-08-07 16:14 | Cat Scan Report ---
CT ABDOMEN AND PELVIS WITH CONTRAST INDICATION / CLINICAL INFORMATION: Unspecified abdominal and back pain for 2 days. TECHNIQUE: Axial CT images were obtained through the abdomen and pelvis after 100 cc Omnipaque [address] scans at this location are performed using CT dose reduction for ALARA by means of automated exposure control. COMPARISON: CT abdomen and pelvis without contrast from 02/02/2019. FINDINGS: LOWER CHEST: No significant abnormality. LIVER: There is hepatic stenosis without other significant abnormalities. GALLBLADDER: Interval cholecystectomy. BILE DUCTS: No significant abnormality. PANCREAS: No significant abnormality. SPLEEN: No significant abnormality. ADRENALS: No significant abnormality. KIDNEYS / URETERS: A simple cyst is seen medially along the mid pole of the right kidney measuring up to 9 mm. No other significant abnormalities. STOMACH / SMALL BOWEL: No significant abnormality. COLON: There is generalized mild/moderate thickening of the colon with mild surrounding inflammation. No significant dilatation or other significant abnormality. APPENDIX: Prior appendectomy. PERITONEUM: No free fluid. No free air. No fluid collection. LYMPH NODES: No significant adenopathy. AORTA / ARTERIES: No significant abnormality. IVC / VEINS: No significant abnormality. URINARY BLADDER: No significant abnormality. REPRODUCTIVE ORGANS: A probable Bartholin gland cyst is again seen centered to the right of midline m easuring up to 3 cm. No other significant abnormality. ADDITIONAL FINDINGS: None. BONES: No significant abnormality. IMPRESSION: 1. Uncomplicated acute pancolitis. 2. Additional findings as above. Signer Name: Tal Prather MD Signed: 08/07/2021 4:10 PM Workstation Name: [id number]
[2021-08-07 16:30] VITALS: BP 122/89
[2021-08-07 17:07] LABS: Bilirubin,Urine NEG (Negative); Blood,Urine MOD (Negative); Color,Urine Straw (Yellow); Protein,Urine <15 mg/dL mg/dL (Negative); Urobilinogen,Urine < 2.0 mg/dL (<2.0)
== END 2021-08-07 18:47 | disposition home or self-care (01) ==
LOC: ED 14:22
DX: K52.9 Noninfective gastroenteritis and colitis, unspecified (principal); K76.0 Fatty (change of) liver, not elsewhere classified; F31.9 Bipolar disorder, unspecified; Z90.89 Acquired absence of other organs
CPT/HCPCS: 36415; 74022; 74177; 80053; 81001; 83690; 85025; 96361; 96365; 96375; 99284; J1956; J2270; J2405; J7030; Q9967; Q0162

== ENCOUNTER 2021-08-24 12:49 | Emergency (ER) | payer MEDICARE ==
[2021-08-24 14:20] VITALS: BP 157/78
[2021-08-24] MEDS ORDERED: MORPHINE 4 MG/1 ML INJ IV ONE (16:32)
[2021-08-24] MEDS ORDERED: SODIUM CHLORIDE 0.9% 1000 ML 1,000 ML IV ONE (16:32)
[2021-08-24] MEDS ORDERED: ONDANSETRON 4 MG/2 ML INJ IV ONE (16:32)
--- NOTE | 2021-08-24 16:35 | Emergency Department Report ---
ED General Adult HPI - General Chief complaint: Abdominal Pain Stated complaint: ABDOMINAL PAIN PUI?: No Time Seen by Provider: 08/24/21 16:06 Source: patient, RN notes reviewed, old records reviewed Mode of arrival: Ambulatory - History of Present Illness Initial comments: The patient is a 51-year-old female. She is not known to myself previously. Th e patient was seen in this department a few weeks ago, and diagnosed with pancolitis on CT scan abdomen pelvis, and discharged with Levaquin prescription. She states that she completed the Levaquin prescription. She presents to the ER today with complaint of epigastric, right upper quadrant abdominal pain, nausea, vomiting and diarrhea. At the moment, she denies headache, neck pain, central chest pain, urinary symptoms. She reports no fevers. She reports that she had partial resolution of symptoms. She reports that her diarrhea stopped, that her symptoms started yesterday. Her pain increases with palpation and range of motion. It decreases with rest. Reports 20 episodes of watery yellow diarrhea. Reports 4-6 episodes of clear emesis. Patient also reports that she has a history of cholecystectomy -: Gradual, days(s) Location: abdomen Radiation: back, abdomen Severity scale (0 -10): 5 Quality: aching Consistency: constant Improves with: rest Worsens with: movement - Related Data Home Medications Medication Instructions Recorded Confirmed Last Taken Meloxicam [Mobic] 7.5 mg PO BID 05/24/14 02/03/19 05/16/17 Quetiapine Fumarate [SEROquel XR] 600 mg PO QHS 05/24/14 05/17/17 05/16/17 Primidone [Mysoline] 250 mg PO BID 07/17/14 05/17/17 05/16/17 Tapentadol (Nf) [Nucynta (Nf)] 75 mg PO Q6H PRN 07/17/14 05/17/17 05/16/17 Docusate Sodium [Colace CAP] 100 mg PO QDAY 08/26/15 02/03/19 05/16/17 propranoloL [Inderal] 20 mg PO BID 05/17/17 05/17/17 05/16/17 Gabapentin Enacarbil [Horizant] 600 mg PO BID 02/03/19 02/03/19 Unknown Milnacipran HCl [Savella] 50 mg PO BID 02/03/19 02/03/19 Unknown Mirtazapine [Remeron 45mg TAB] 45 mg PO QHS 02/03/19 02/03/19 Unknown Vortioxetine Hydrobromide 20 mg PO QAM 02/03/19 02/03/19 Unknown [Trintellix] Previous Rx's Medication Instructions Recorded Last Taken Type Gabapentin Enacarbil [Horizant] 300 mg PO BID #60 tab-cap 05/17/17 Unknown Rx Mirtazapine [Remeron 15mg TAB] 45 mg PO QHS #15 tablet 02/09/19 Unknown Rx amLODIPine 10 mg PO QDAY #30 tablet 02/09/19 Unknown Rx Ondansetron [Zofran Odt] 4 mg PO Q8HR PRN #20 tab.rapdis 05/19/20 Unknown Rx levoFLOXacin [Levaquin] 750 mg PO QDAY #6 tablet 08/07/21 Unknown Rx Acetaminophen [Non-Aspirin Extra 500 mg PO Q6HR PRN #30 tablet 08/24/21 Unknown Rx Strength] Ibuprofen [Motrin] 400 mg PO Q8H PRN #30 tablet 08/24/21 Unknown Rx Metoclopramide [Reglan] 10 mg PO QID PRN #30 tablet 08/24/21 Unknown Rx Morphine Sulfate [Morphine Sulfate 7.5 mg PO Q6HR PRN #10 tablet 08/24/21 Unknown Rx IR] levoFLOXacin [Levaquin] 750 mg PO QDAY #9 tablet 08/24/21 Unknown Rx Allergies Allergy/AdvReac Type Severity Reaction Status Date / Time No Known Allergies Allergy Verified 08/07/21 14:23 ED Review of Systems ROS: Stated complaint: ABDOMINAL PAIN Other details as noted in HPI Constitutional: malaise, weakness. denies: fever Eyes: denies: eye discharge ENT: denies: epistaxis Respiratory: denies: cough Cardiovascular: denies: chest pain Gastrointestinal: abdominal pain, nausea, vomiting, diarrhea Genitourinary: denies: dysuria Musculoskeletal: back pain Neurological: weakness Psychiatric: anxiety ED Past Medical Hx - Past Medical History Hx Congestive Heart Failure: No Hx Diabetes: No Hx Headaches / Migraines: Yes Hx Psychiatric Treatment: Yes (depression, bipolar) Hx Asthma: No Hx COPD: No 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 - Surgical History Hx Appendectomy: Yes Additional Surgical History: back surguries, previous discectomy - Social History Smoking Status: Never Smoker - Medications Home Medications: Home Medications Medication Instructions Recorded Confirmed Last Taken Type Meloxicam [Mobic] 7.5 mg PO BID 05/24/14 02/03/19 05/16/17 History Quetiapine Fumarate [SEROquel XR] 600 mg PO QHS 05/24/14 05/17/17 05/16/17 History Primidone [Mysoline] 250 mg PO BID 07/17/14 05/17/17 05/16/17 History Tapentadol (Nf) [Nucynta (Nf)] 75 mg PO Q6H PRN 07/17/14 05/17/17 05/16/17 History Docusate Sodium [Colace CAP] 100 mg PO QDAY 08/26/15 02/03/19 05/16/17 History Gabapentin Enacarbil [Horizant] 300 mg PO BID #60 tab-cap 05/17/17 Unknown Rx propranoloL [Inderal] 20 mg PO BID 05/17/17 05/17/17 05/16/17 History Gabapentin Enacarbil [Horizant] 600 mg PO BID 02/03/19 02/03/19 Unknown History Milnacipran HCl [Savella] 50 mg PO BID 02/03/19 02/03/19 Unknown History Mirtazapine [Remeron 45mg TAB] 45 mg PO QHS 02/03/19 02/03/19 Unknown History Vortioxetine Hydrobromide 20 mg PO QAM 02/03/19 02/03/19 Unknown History [Trintellix] Mirtazapine [Remeron 15mg TAB] 45 mg PO QHS #15 tablet 02/09/19 Unknown Rx amLODIPine 10 mg PO QDAY #30 tablet 02/09/19 Unknown Rx Ondansetron [Zofran Odt] 4 mg PO Q8HR PRN #20 tab.rapdis 05/19/20 Unknown Rx levoFLOXacin [Levaquin] 750 mg PO QDAY #6 tablet 08/07/21 Unknown Rx Acetaminophen [Non-Aspirin Extra 500 mg PO Q6HR PRN #30 tablet 08/24/21 Unknown Rx Strength] Ibuprofen [Motrin] 400 mg PO Q8H PRN #30 tablet 08/24/21 Unknown Rx Metoclopramide [Reglan] 10 mg PO QID PRN #30 tablet 08/24/21 Unknown Rx Morphine Sulfate [Morphine Sulfate 7.5 mg PO Q6HR PRN #10 tablet 08/24/21 Unknown Rx IR] levoFLOXacin [Levaquin] 750 mg PO QDAY #9 tablet 08/24/21 Unknown Rx ED Physical Exam - General Limitations: Physical Limitation General appearance: alert, anxious - Head Head exam: Present: atraumatic, normocephalic - Eye Eye exam: Present: normal appearance - ENT ENT exam: Present: normal exam, normal orophraynx, mucous membranes moist, normal external ear exam - Neck Neck exam: Present: normal inspection, full ROM. Absent: tenderness, meningismus - Respiratory Respiratory exam: Present: normal lung sounds bilaterally. Absent: respiratory distress, wheezes, rales, rhonchi, stridor, decreased breath sounds - Cardiovascular Cardiovascular Exam: Present: regular rate, normal rhythm, normal heart sounds. Absent: bradycardia, tachycardia, irregular rhythm, systolic murmur, diastolic murmur, rubs, gallop - GI/Abdominal GI/Abdominal exam: Present: soft, tenderness. Absent: distended, guarding, rebound, rigid, pulsatile mass - Extremities Exam Extremities exam: Present: normal inspection, full ROM, other (2+ pulses noted in the bilateral upper and lower extremities. There is no palpable cord. negative Homans sign. Muscular compartments are soft. The pelvis is stable.). Absent: pedal edema, calf tenderness - Back Exam Back exam: Present: normal inspection, full ROM. Absent: tenderness, CVA tenderness (R), CVA tenderness (L), paraspinal tenderness, vertebral tenderness - Neurological Exam Neurological exam: Present: alert, other (No facial droop. Tongue midline. Extraocular movements intact bilaterally. Facial sensation intact to light touch in V1, V2, V3 distribution bilaterally. 5 and a 5 strength in 4 extremities. Sensation intact to light touch in 4 extremities.). Absent: motor sensory deficit - Psychiatric Psychiatric exam: Present: anxious - Skin Skin exam: Present: warm, dry, intact, normal color. Absent: rash ED Course Vital Signs 08/24/21 08/24/21 08/24/21 13:51 14:19 16:50 Temperature 97.9 F Pulse Rate 62 60 Respiratory 18 20 18 Rate Blood Pressure 142/83 Blood Pressure 157/78 [Right] O2 Sat by Pulse 97 96 Oximetry - Reevaluation(s) Reevaluation #1: 08/24/21 18:15 Differential diagnosis, including but not limited to: Colitis, diverticulitis, urinary tract infection, antibiotic associated diarrhea Assessment and plan: 51-year-old female, who a few weeks ago had pancolitis on CT scan abdomen pelvis, completed antibiotic course, had resolution of symptoms, now presenting with recurrent nausea, vomiting, diarrhea, abdominal pain/tenderness, likely recurrence of disease. We will treat her symptoms. We will obtain urinalysis and appropriate laboratory studies. We will repeat CT scan of the abdomen pelvis. We will reassess after initial data points. I discussed this plan of care with the patient. She articulated understanding. All questions answered. Reassess 08/24/21 21:28 Patient reassessed multiple times. Please note that this patient had a prolonged stay here in the emergency room secondary to the time required for the patient to provide a urine sample. CT scan abdomen pelvis was negative for acute findings. Urinalysis suggestive of urinary tract infection. Given location of symptoms, flank pain, will treat patient empirically for clinical pyelonephritis. Start on ceftriaxone here in the emergency room, then discharged with pain medication, nausea medication and levofloxacin. Extensive discussion had with patient regarding need to follow-up with outpatient primary care, and/or GI. Belly soft on repeat exam, patient tolerating liquid feeds, myself and colleagues have not witnessed any nausea, vomiting or diarrhea. This patient is suitable for trial of outpatient management at this time. Discussed with patient. All questions answered ED Medical Decision Making - Lab Data Result diagrams: 08/24/21 16:38 08/24/21 16:38 Vital Signs 08/24/21 08/24/21 08/24/21 13:51 14:19 16:50 Temperature 97.9 F Pulse Rate 62 60 Respiratory 18 20 18 Rate Blood Pressure 142/83 Blood Pressure 157/78 [Right] O2 Sat by Pulse 97 96 Oximetry Lab Results 08/24/21 08/24/21 08/24/21 Range/Units 16:38 16:38 16:38 WBC 15.7 H (4.5-11.0) K/mm3 RBC 4.53 (3.65-5.03) M/mm3 Hgb 15.0 H (10.1-14.3) gm/dl Hct 43.0 H (30.3-42.9) % MCV 95 (79-97) fl MCH 33 H (28-32) pg MCHC 35 H (30-34) % RDW 12.7 L (13.2-15.2) % Plt Count 220 (140-440) K/mm3 Lymph % (Auto) 7.0 L (13.4-35.0) % [place] % (Auto) 3.3 (0.0-7.3) % Eos % (Auto) 0.1 (0.0-4.3) % Baso % (Auto) 0.3 (0.0-1.8) % Lymph # (Auto) 1.1 L (1.2-5.4) K/mm3 [place] # (Auto) 0.5 (0.0-0.8) K/mm3 Eos # (Auto) 0.0 (0.0-0.4) K/mm3 Baso # (Auto) 0.0 (0.0-0.1) K/mm3 Seg Neutrophils % 89.3 H (40.0-70.0) % Seg Neutrophils # 14.0 H (1.8-7.7) K/mm3 PT 13.1 (12.2-14.9) Sec. INR 0.89 (0.87-1.13) Sodium (137-145) mmol/L Potassium (3.6-5.0) mmol/L Chloride (98-107) mmol/L Carbon Dioxide (22-30) mmol/L Anion Gap mmol/L BUN (7-17) mg/dL Creatinine (0.6-1.2) mg/dL Estimated GFR ml/min BUN/Creatinine Ratio % Glucose (65-100) mg/dL Lactic Acid (0.7-2.0) mmol/L Calcium (8.4-10.2) mg/dL Total Bilirubin 0.70 (0.1-1.2) mg/dL Direct Bilirubin 0.2 (0-0.2) mg/dL Indirect Bilirubin 0.5 mg/dL AST 52 H (5-40) units/L ALT 81 H (7-56) units/L Alkaline Phosphatase 79 (35-129) units/L Troponin T (0.00-0.029) ng/mL Total Protein 7.1 (6.3-8.2) g/dL Albumin 4.5 (3.9-5) g/dL Albumin/Globulin Ratio 1.7 % Lipase 20 (13-60) units/L HCG, Qual (Negative) 08/24/21 08/24/21 08/24/21 Range/Units 16:38 16:38 16:38 WBC (4.5-11.0) K/mm3 RBC (3.65-5.03) M/mm3 Hgb (10.1-14.3) gm/dl Hct (30.3-42.9) % MCV (79-97) fl MCH (28-32) pg MCHC (30-34) % RDW (13.2-15.2) % Plt Count (140-440) K/mm3 Lymph % (Auto) (13.4-35.0) % [place] % (Auto) (0.0-7.3) % Eos % (Auto) (0.0-4.3) % Baso % (Auto) (0.0-1.8) % Lymph # (Auto) (1.2-5.4) K/mm3 [place] # (Auto) (0.0-0.8) K/mm3 Eos # (Auto) (0.0-0.4) K/mm3 Baso # (Auto) (0.0-0.1) K/mm3 Seg Neutrophils % (40.0-70.0) % Seg Neutrophils # (1.8-7.7) K/mm3 PT (12.2-14.9) Sec. INR (0.87-1.13) Sodium 138 (137-145) mmol/L Potassium 4.3 (3.6-5.0) mmol/L Chloride 101.5 (98-107) mmol/L Carbon Dioxide 23 (22-30) mmol/L Anion Gap 18 mmol/L BUN 7 (7-17) mg/dL Creatinine 0.6 (0.6-1.2) mg/dL Estimated GFR > 60 ml/min BUN/Creatinine Ratio 12 % Glucose 175 H (65-100) mg/dL Lactic Acid 1.50 (0.7-2.0) mmol/L Calcium 9.5 (8.4-10.2) mg/dL Total Bilirubin (0.1-1.2) mg/dL Direct Bilirubin (0-0.2) mg/dL Indirect Bilirubin mg/dL AST (5-40) units/L ALT (7-56) units/L Alkaline Phosphatase (35-129) units/L Troponin T < 0.010 (0.00-0.029) ng/mL Total Protein (6.3-8.2) g/dL Albumin (3.9-5) g/dL Albumin/Globulin Ratio % Lipase (13-60) units/L HCG, Qual Negative (Negative) - EKG Data -: EKG Interpreted by Nc EKG shows normal: sinus rhythm Rate: normal - EKG Data When compared to previous EKG there are: previous EKG unavailable 08/24/21 18:11 And the EKG is interpreted at 16: 52 Sinus rhythm, 76 bpm. Normal axis, normal intervals, low voltage in the lateral leads. Q waves noted in 1 and aVL. There is a normal P wave axis. This is an abnormal EKG. This is not a STEMI. - Radiology Data Radiology results: pending, report reviewed, image reviewed CT ABDOMEN AND PELVIS WITH CONTRAST INDICATION / CLINICAL INFORMATION: Unspecified abdominal and back pain for 2 days. TECHNIQUE: Axial CT images were obtained through the abdomen and pelvis after 100 cc Omnipaque [address] scans at this location are performed using CT dose reduction for ALARA by means of automated exposure control. COMPARISON: CT abdomen and pelvis without contrast from 02/02/2019. FINDINGS: LOWER CHEST: No significant abnormality. LIVER: There is hepatic stenosis without other significant abnormalities. GALLBLADDER: Interval cholecystectomy. BILE DUCTS: No significant abnormality. PANCREAS: No significant abnormality. SPLEEN: No significant abnormality. ADRENALS: No significant abnormality. KIDNEYS / URETERS: A simple cyst is seen medially along the mid pole of the right kidney measuring up to 9 mm. No other significant abnormalities. STOMACH / SMALL BOWEL: No significant abnormality. COLON: There is generalized mild/moderate thickening of the colon with mild surrounding inflammation. No significant dilatation or other significant abnormality. APPENDIX: Prior appendectomy. PERITONEUM: No free fluid. No free air. No fluid collection. LYMPH NODES: No significant adenopathy. AORTA / ARTERIES: No significant abnormality. IVC / VEINS: No significant abnormality. URINARY BLADDER: No significant abnormality. REPRODUCTIVE ORGANS: A probable Bartholin gland cyst is again seen centered to the right of midline measuring up to 3 cm. No other significant abnormality. ADDITIONAL FINDINGS: None. BONES: No significant abnormality. IMPRESSION: 1. Uncomplicated acute pancolitis. 2. Additional findings as above. Signer Name: Tal Prather MD Signed: 08/07/2021 3:[address] ABDOMEN AND PELVIS WITH CONTRAST INDICATION / CLINICAL INFORMATION: acute abd pain n/v/d. TECHNIQUE: Axial CT images were obtained through the abdomen and pelvis after Omnipaque 300, 100 cc IV contrast. All CT scans at this location are performed using CT dose reduction for ALARA by means of automated exposure control. COMPARISON: None available. FINDINGS: LOWER CHEST: No significant abnormality. LIVER: Diffuse fatty infiltration. GALLBLADDER: Previous cholecystectomy. BILE DUCTS: No significant abnormality. PANCREAS: No significant abnormality. SPLEEN: No significant abnormality. ADRENALS: No significant abnormality. RIGHT KIDNEY / URETER: One CM cyst upper pole. LEFT KIDNEY / URETER: No significant abnormality. STOMACH / SMALL BOWEL: No significant abnormality. COLON: No significant abnormality. APPENDIX: Surgically absent. PERITONEUM: No free fluid. No free air. No fluid collection. LYMPH NODES: No significant adenopathy. VASCULAR STRUCTURES: No significant abnormality. URINARY BLADDER: No significant abnormality. REPRODUCTIVE ORGANS: Probable Bartholin gland cyst again seen measuring 3 cm. ADDITIONAL FINDINGS: None. SKELETAL SYSTEM: No significant abnormality. IMPRESSION: 1. Negative for obstruction or localized inflammation. 2. Incidental findings are unchanged. Signer Name: Ky Quiros MD Signed: 08/24/2021 5:37 PM Workstation Name: [id number] Critical care attestation.: If time is entered above; I have spent that time in minutes in the direct care of this critically ill patient, excluding procedure time. ED Disposition Clinical Impression: Acute abdominal pain, Nausea vomiting and diarrhea, Urinary tract infection Disposition: 01 HOME / SELF CARE / HOMELESS Is pt being admited?: No Does the pt Need Aspirin: No Condition: Good Instructions: Abdominal Pain (ED) Additional Instructions: Do not take metformin medication for the next 2 days, if patient takes this medication. Take the pain medication, nausea medication and antibiotics as needed/directed. Do not consume alcohol while taking the medications. Urinalysis today suggested urinary tract infection, CT scan abdomen pelvis not demonstrate any acute findings. The patient should follow-up with a primary care doctor, such as Dr Trinh, within the next 3 to 5 days for a repeat checkup/evaluation. The patient should follow-up with a drop man, such of those who work at [facility] within the next 3 to 4 weeks for repeat checkup and evaluation, and to have outpatient evaluation for colonoscopy, to exclude cancer, tumor, malignancy. Please have your primary care doctor contact medical records department to obtain copies of laboratory studies and imaging studies and follow-up on culture results. Please return to the emergency room right away with new pain, worsened pain, migration of pain, projectile vomiting, change in mental status, confusion, inability to tolerate liquid feeds, new, worsened or different symptoms not pr esent on the initial emergency room evaluation. When taking morphine sulfate for pain, do not drive, consume alcohol, or make important decisions. No tome el medicamento con metformina luis los prximos 2 norton, si el paciente fidelia mushtaq medicamento. [place] los analgsicos, los medicamentos para las nuseas y los antibiticos segn sea necesario o indicado. No consuma alcohol mientras est tomando los medicamentos. El anlisis de orikemi de dayan sugiri infeccin del tracto urinario, la tomografa computarizada del abdomen y la pelvis no demostr ningn hallazgo kiet. El paciente debe hacer un seguimiento con un mdico de atencin primaria, ankur el Dr. Trinh, dentro de los prximos 3 a 5 norton para prince revisin / evaluacin repetida. El paciente debe hacer un seguimiento con un gastroen terlogo, ankur los que trabajan en [facility], dentro de las prximas 3 a 4 semanas para repetir el chequeo y la evaluacin, y para que se le realice prince evaluacin ambulatoria para colonoscopia, para excluir cncer, tumor, malignidad. Pdale a wagoner mdico de atencin primaria que se comunique con el departamento de registros mdicos para obtener copias de los estudios de laboratorio y estudios de imgenes y el seguimiento de los resultados de los cultivos. Regrese a la nani de emergencias de inmediato con dolor nuevo, empeoramiento del dolor, migracin del dolor, vmitos en proyectil, cambio en el estado mental, confusin, incapacidad para tolerar alimentos lquidos, sntomas nuevos, empeorados o diferentes que no estn presentes en la evaluacin inicial de la nani de emergencias. Cuando tome sulfato de morfina para el dolor, no conduzca, no consuma alcohol ni tome decisiones importantes. Referrals: CHRISTAL TRINH MD [Staff Physician] - 3-5 Days [facility] [Provider Group] - 3-5 Days Forms: Work/School Release Form(ED)
[2021-08-24 17:09] LABS: Basophils % (Auto) 0.3 % (0.0-1.8); Eosinophils % (Auto) 0.1 % (0.0-4.3); Lymphocytes # (Auto) 1.1 K/mm3 (1.2-5.4); Mean Corpuscular HGB Conc 35 % (30-34); Mean Corpuscular Volume 95 fl (79-97); Monocytes # (Auto) 0.5 K/mm3 (0.0-0.8); Monocytes % (Auto) 3.3 % (0.0-7.3); Platelet Count 220 K/mm3 (140-440); Red Blood Count 4.53 M/mm3 (3.65-5.03); Red Cell Distribution Width 12.7 % (13.2-15.2)
[2021-08-24 17:10] LABS: BUN/Creatinine Ratio 12; Blood Urea Nitrogen 7 mg/dL (7-17); Calcium 9.5 mg/dL (8.4-10.2); Hemolysis Index 19
[2021-08-24 17:14] LABS: Albumin 4.5 g/dL (3.9-5); Bilirubin,Direct 0.2 mg/dL (0-0.2)
[2021-08-24 17:55] LABS: INR 0.89 (0.87-1.13)
[2021-08-24] MEDS ORDERED: HYDROmorphone 1 MG/1 ML INJ IV ONE (18:25)
--- NOTE | 2021-08-24 18:41 | Cat Scan Report ---
CT ABDOMEN AND PELVIS WITH CONTRAST INDICATION / CLINICAL INFORMATION: acute abd pain n/v/d. TECHNIQUE: Axial CT images were obtained through the abdomen and pelvis after Omnipaque 300, 100 cc I V contrast. All CT scans at this location are performed using CT dose reduction for ALARA by means o f automated exposure control. COMPARISON: None available. FINDINGS: LOWER CHEST: No significant abnormality. LIVER: Diffuse fatty infiltration. GALLBLADDER: Previous cholecystectomy. BILE DUCTS: No significant abnormality. PANCREAS: No significant abnormality. SPLEEN: No significant abnormality. ADRENALS: No significant abnormality. RIGHT KIDNEY / URETER: One CM cyst upper pole. LEFT KIDNEY / URETER: No significant abnormality. STOMACH / SMALL BOWEL: No significant abnormality. COLON: No significant abnormality. APPENDIX: Surgically absent. PERITONEUM: No free fluid. No free air. No fluid collection. LYMPH NODES: No significant adenopathy. VASCULAR STRUCTURES: No significant abnormality. URINARY BLADDER: No significant abnormality. REPRODUCTIVE ORGANS: Probable Bartholin gland cyst again seen measuring 3 cm. ADDITIONAL FINDINGS: None. SKELETAL SYSTEM: No significant abnormality. IMPRESSION: 1. Negative for obstruction or localized inflammation. 2. Incidental findings are unchanged. Signer Name: Ky Quiros MD Signed: 08/24/2021 6:37 PM Workstation Name: [id number]
[2021-08-24 21:02] LABS: Bacteria,Urine 1+ /HPF (Negative); Bilirubin,Urine NEG (Negative); Blood,Urine MOD (Negative); Color,Urine Yellow (Yellow); Mucus,Urine FEW /HPF; Protein,Urine <15 mg/dL mg/dL (Negative); Urobilinogen,Urine < 2.0 mg/dL (<2.0)
[2021-08-24 21:04] LABS: WBC,Urine > 182.0 /HPF (0.0-6.0)
[2021-08-24] MEDS ORDERED: cefTRIAXone/NS 1 GM/50 ML 1 GM/50 ML BAG IV ONE (21:27)
--- NOTE | 2021-08-27 10:06 | Electrocardiograph Report ---
[facility] Test Date: 2021-08-24 Test Time: 16:52:19 Pat Name: ELIZABETH ANDERSON Department: Room: Gender: F Pediatric Genetic Counselor: RRVALARIE : 1970 Requested By: GILL GALLEGOS Order Number: [id number] Reading MD: Farrukh Gamez Measurements Intervals [place] Rate: 76 P: 41 IN: 157 QRS: -1 QRSD: 81 T: 67 QT: 342 QTc: 384 Interpretive Statements Sinus rhythm No previous ECG available for comparison Electronically Signed On 08-27-2021 10:06:26 EST by Farrukh Gamez
== END 2021-08-24 22:39 | disposition home or self-care (01) ==
LOC: ED 12:49
DX: R10.0 Acute abdomen (principal); R11.2 Nausea with vomiting, unspecified; N39.0 Urinary tract infection, site not specified; Z90.89 Acquired absence of other organs
CPT/HCPCS: 36415; 74177; 80048; 80076; 81001; 82140; 83690; 84484; 84703; 85025; 85610; 93005; 96361; 96365; 96375; 99284; J0696; J1170; J2270; J2405; J7030; Q9967; Q0162

== ENCOUNTER 2021-09-29 19:49 | Emergency (ER) | payer MEDICARE ==
--- NOTE | 2021-09-29 21:12 | Emergency Department Report ---
ED General Adult HPI - General Stated complaint: TOOTHACHE Time Seen by Provider: 09/29/21 21:07 - History of Present Illness Initial comments: Patient 51-year-old female with history of gallstone bronchitis who presents for dental pain x3 days. Patient denies fevers or chills. There is no throat or ear pain. Patient is tolerating p.o. intake. Pain today is about a 5/10 pain is exacerbated headaches. Headache is unusual location and intensity and d uration as previous headaches for this patient. There is no obvious facial or gum swelling. Patient arrived to ED ambulatory patient alert oriented x3 there is no cough no wheeze no stridor. - Related Data Home Medications Medication Instructions Recorded Confirmed Last Taken Meloxicam [Mobic] 7.5 mg PO BID 05/24/14 02/03/19 05/16/17 Quetiapine Fumarate [SEROquel XR] 600 mg PO QHS 05/24/14 05/17/17 05/16/17 Primidone [Mysoline] 250 mg PO BID 07/17/14 05/17/17 05/16/17 Tapentadol (Nf) [Nucynta (Nf)] 75 mg PO Q6H PRN 07/17/14 05/17/17 05/16/17 Docusate Sodium [Colace CAP] 100 mg PO QDAY 08/26/15 02/03/19 05/16/17 propranoloL [Inderal] 20 mg PO BID 05/17/17 05/17/17 05/16/17 Gabapentin Enacarbil [Horizant] 600 mg PO BID 02/03/19 02/03/19 Unknown Milnacipran HCl [Savella] 50 mg PO BID 02/03/19 02/03/19 Unknown Mirtazapine [Remeron 45mg TAB] 45 mg PO QHS 02/03/19 02/03/19 Unknown Vortioxetine Hydrobromide 20 mg PO QAM 02/03/19 02/03/19 Unknown [Trintellix] Previous Rx's Medication Instructions Recorded Last Taken Type Gabapentin Enacarbil [Horizant] 300 mg PO BID #60 tab-cap 05/17/17 Unknown Rx Mirtazapine [Remeron 15mg TAB] 45 mg PO QHS #15 tablet 02/09/19 Unknown Rx amLODIPine 10 mg PO QDAY #30 tablet 02/09/19 Unknown Rx Ondansetron [Zofran Odt] 4 mg PO Q8HR PRN #20 tab.rapdis 05/19/20 Unknown Rx levoFLOXacin [Levaquin] 750 mg PO QDAY #6 tablet 08/07/21 Unknown Rx Acetaminophen [Non-Aspirin Extra 500 mg PO Q6HR PRN #30 tablet 08/24/21 Unknown Rx Strength] Ibuprofen [Motrin] 400 mg PO Q8H PRN #30 tablet 08/24/21 Unknown Rx Metoclopramide [Reglan] 10 mg PO QID PRN #30 tablet 08/24/21 Unknown Rx Morphine Sulfate [Morphine Sulfate 7.5 mg PO Q6HR PRN #10 tablet 08/24/21 Unknown Rx IR] levoFLOXacin [Levaquin] 750 mg PO QDAY #9 tablet 08/24/21 Unknown Rx Amoxicillin/Potassium Clav 1 each PO BID 7 Days #14 09/29/21 Unknown Rx [Augmentin 875-125 Tablet] Chlorhexidine Mouthwash [Peridex] 15 ml MM BID #1 bottle 09/29/21 Unknown Rx Ibuprofen [Motrin 800 MG tab] 800 mg PO Q8HR PRN #30 tablet 09/29/21 Unknown Rx Allergies Allergy/AdvReac Type Severity Reaction Status Date / Time No Known Allergies Allergy Verified 08/07/21 14:23 ED Review of Systems ROS: Stated complaint: TOOTHACHE Other details as noted in HPI Constitutional: denies: chills, fever Eyes: denies: eye pain, eye discharge, vision change ENT: dental pain, congestion Respiratory: denies: cough, shortness of breath, wheezing Cardiovascular: denies: chest pain, palpitations Endocrine: no symptoms reported Gastrointestinal: denies: abdominal pain, nausea, vomiting, diarrhea Genitourinary: denies: urgency, dysuria, discharge Musculoskeletal: denies: back pain, joint swelling, arthralgia Skin: denies: rash, lesions Neurological: headache Psychiatric: denies: anxiety, depression Hematological/Lymphatic: denies: easy bleeding, easy bruising ED Past Medical Hx - Past Medical History Hx Congestive Heart Failure: No Hx Diabetes: No Hx Headaches / Migraines: Yes Hx Psychiatric Treatment: Yes (depression, bipolar) Hx Asthma: No Hx COPD: No 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 - Surgical History Hx Appendectomy: Yes Additional Surgical History: back surguries, previous discectomy - Social History Smoking Status: Never Smoker - Medications Home Medications: Home Medications Medication Instructions Recorded Confirmed Last Taken Type Meloxicam [Mobic] 7.5 mg PO BID 05/24/14 02/03/19 05/16/17 History Quetiapine Fumarate [SEROquel XR] 600 mg PO QHS 05/24/14 05/17/17 05/16/17 History Primidone [Mysoline] 250 mg PO BID 07/17/14 05/17/17 05/16/17 History Tapentadol (Nf) [Nucynta (Nf)] 75 mg PO Q6H PRN 07/17/14 05/17/17 05/16/17 History Docusate Sodium [Colace CAP] 100 mg PO QDAY 08/26/15 02/03/19 05/16/17 History Gabapentin Enacarbil [Horizant] 300 mg PO BID #60 tab-cap 05/17/17 Unknown Rx propranoloL [Inderal] 20 mg PO BID 05/17/17 05/17/17 05/16/17 History Gabapentin Enacarbil [Horizant] 600 mg PO BID 02/03/19 02/03/19 Unknown History Milnacipran HCl [Savella] 50 mg PO BID 02/03/19 02/03/19 Unknown History Mirtazapine [Remeron 45mg TAB] 45 mg PO QHS 02/03/19 02/03/19 Unknown History Vortioxetine Hydrobromide 20 mg PO QAM 02/03/19 02/03/19 Unknown History [Trintellix] Mirtazapine [Remeron 15mg TAB] 45 mg PO QHS #15 tablet 02/09/19 Unknown Rx amLODIPine 10 mg PO QDAY #30 tablet 02/09/19 Unknown Rx Ondansetron [Zofran Odt] 4 mg PO Q8HR PRN #20 tab.rapdis 05/19/20 Unknown Rx levoFLOXacin [Levaquin] 750 mg PO QDAY #6 tablet 08/07/21 Unknown Rx Acetaminophen [Non-Aspirin Extra 500 mg PO Q6HR PRN #30 tablet 08/24/21 Unknown Rx Strength] Ibuprofen [Motrin] 400 mg PO Q8H PRN #30 tablet 08/24/21 Unknown Rx Metoclopramide [Reglan] 10 mg PO QID PRN #30 tablet 08/24/21 Unknown Rx Morphine Sulfate [Morphine Sulfate 7.5 mg PO Q6HR PRN #10 tablet 08/24/21 Unknown Rx IR] levoFLOXacin [Levaquin] 750 mg PO QDAY #9 tablet 08/24/21 Unknown Rx Amoxicillin/Potassium Clav 1 each PO BID 7 Days #14 09/29/21 Unknown Rx [Augmentin 875-125 Tablet] Chlorhexidine Mouthwash [Peridex] 15 ml MM BID #1 bottle 09/29/21 Unknown Rx Ibuprofen [Motrin 800 MG tab] 800 mg PO Q8HR PRN #30 tablet 09/29/21 Unknown Rx ED Physical Exam - General General appearance: alert, in no apparent distress - Head Head exam: Present: normocephalic - Eye Eye exam: Present: PERRL, EOMI Pupils: Present: normal accommodation - ENT ENT exam: Present: TM's normal bilaterally, normal external ear exam - Expanded ENT Exam Expanded Teeth exam: Present: dental caries (Multiple 19), fractured tooth # Throat exam: Positive: normal inspection. Negative: tonsillar erythema, tonsillomegaly, tonsillar exudate, R peritonsillar mass, L peritonsillar mass - Neck Neck exam: Present: normal inspection, full ROM. Absent: tenderness, lymphadenopathy, thyromegaly - Respiratory Respiratory exam: Present: normal lung sounds bilaterally. Absent: respiratory distress, wheezes, stridor, chest wall tenderness - Cardiovascular Cardiovascular Exam: Present: regular rate, normal rhythm, normal heart sounds. Absent: systolic murmur, diastolic murmur, rubs, gallop - GI/Abdominal GI/Abdominal exam: Present: soft, normal bowel sounds. Absent: distended, tenderness, bruit, hernia - Rectal Rectal exam: Present: deferred - Extremities Exam Extremities exam: Present: normal inspection, full ROM - Back Exam Back exam: Present: normal inspection, full ROM. Absent: tenderness - Neurological Exam Neurological exam: Present: alert, oriented X3, CN II-XII intact, normal gait - Psychiatric Psychiatric exam: Present: normal affect, normal mood ED Medical Decision Making - Medical Decision Making With infected dental caries plan DC home with prescriptions, follow-up with dentist in 2 to 3 days. Return to emergency department if symptoms worsen peer patient verbalized agreement understanding discharge plan patient DC'd home in stable condition at this time. Critical care attestation.: If time is entered above; I have spent that time in minutes in the direct care of this critically ill patient, excluding procedure time. ED Disposition Clinical Impression: Infected dental caries Disposition: 01 HOME / SELF CARE / HOMELESS Is pt being admited?: No Does the pt Need Aspirin: No Condition: Stable Instructions: Preventive Dental Care, Adult Additional Instructions: Follow-up with dentist tomorrow. Take medications as prescribed. Return to emergency department if symptoms worsen. Prescriptions: Amoxicillin/Potassium Clav [Augmentin 875-125 Tablet] 1 each PO BID 7 Days #14 Ibuprofen [Motrin 800 MG tab] 800 mg PO Q8HR PRN #30 tablet PRN Reason: Pain Chlorhexidine Mouthwash [Peridex] 15 ml MM BID #1 bottle Referrals: [facility] [Outside] - 3-5 Days Forms: Work/School Release Form(ED) Time of Disposition: 21:18
[2021-09-29 21:21] VITALS: BP 157/100
== END 2021-09-29 21:30 | disposition home or self-care (01) ==
LOC: ED 19:49
DX: R51.9 Headache, unspecified (principal); K02.9 Dental caries, unspecified; Z90.89 Acquired absence of other organs
CPT/HCPCS: 99282

== ENCOUNTER 2022-02-08 10:08 | Emergency (ER) | payer MEDICARE ==
--- NOTE | 2022-02-08 14:10 | Emergency Department Report ---
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 Patient states that she awakened through the night and felt as though she may have bitten by an insect. Patient states that she awakened this morning with her left ear swollen and painful to touch. Patient denies any trauma. Patient denies any recent dental work. Patient denies any prior treatment to arrival. Patient is alert and oriented x3. No acute distress noted. No ill appearance noted. Patient states pain is a current 3 out of 10. She denies any headache. MD complaint: ear pain Onset/Timin -: days(s) Location: L ear Severity: moderate Severity scale (0 -10): 6 Quality: aching Consistency: intermittent Improves with: none Worsens with: none - Related Data Home Medications Medication Instructions Recorded Confirmed Last Taken Meloxicam [Mobic] 7.5 mg PO BID 05/24/14 02/03/19 05/16/17 Quetiapine Fumarate [SEROquel XR] 600 mg PO QHS 05/24/14 05/17/17 05/16/17 Primidone [Mysoline] 250 mg PO BID 07/17/14 05/17/17 05/16/17 Tapentadol (Nf) [Nucynta (Nf)] 75 mg PO Q6H PRN 07/17/14 05/17/17 05/16/17 Docusate Sodium [Colace CAP] 100 mg PO QDAY 08/26/15 02/03/19 05/16/17 propranoloL [Inderal] 20 mg PO BID 05/17/17 05/17/17 05/16/17 Gabapentin Enacarbil [Horizant] 600 mg PO BID 02/03/19 02/03/19 Unknown Milnacipran HCl [Savella] 50 mg PO BID 02/03/19 02/03/19 Unknown Mirtazapine [Remeron 45mg TAB] 45 mg PO QHS 02/03/19 02/03/19 Unknown Vortioxetine Hydrobromide 20 mg PO QAM 02/03/19 02/03/19 Unknown [Trintellix] Previous Rx's Medication Instructions Recorded Last Taken Type Gabapentin Enacarbil [Horizant] 300 mg PO BID #60 tab-cap 05/17/17 Unknown Rx Mirtazapine [Remeron 15mg TAB] 45 mg PO QHS #15 tablet 02/09/19 Unknown Rx amLODIPine 10 mg PO QDAY #30 tablet 02/09/19 Unknown Rx Ondansetron [Zofran Odt] 4 mg PO Q8HR PRN #20 tab.rapdis 05/19/20 Unknown Rx levoFLOXacin [Levaquin] 750 mg PO QDAY #6 tablet 08/07/21 Unknown Rx Acetaminophen [Non-Aspirin Extra 500 mg PO Q6HR PRN #30 tablet 08/24/21 Unknown Rx Strength] Ibuprofen [Motrin] 400 mg PO Q8H PRN #30 tablet 08/24/21 Unknown Rx Metoclopramide [Reglan] 10 mg PO QID PRN #30 tablet 08/24/21 Unknown Rx Morphine Sulfate [Morphine Sulfate 7.5 mg PO Q6HR PRN #10 tablet 08/24/21 Unknown Rx IR] levoFLOXacin [Levaquin] 750 mg PO QDAY #9 tablet 08/24/21 Unknown Rx Amoxicillin/Potassium Clav 1 each PO BID 7 Days #14 09/29/21 Unknown Rx [Augmentin 875-125 Tablet] Chlorhexidine Mouthwash [Peridex] 15 ml MM BID #1 bottle 09/29/21 Unknown Rx Ibuprofen [Motrin 800 MG tab] 800 mg PO Q8HR PRN #30 tablet 09/29/21 Unknown Rx Sulfamethoxazole/Trimethoprim 1 each PO BID 10 Days #20 tab 02/08/22 Unknown Rx [Bactrim DS TAB] cephALEXin [Keflex] 500 mg PO Q12HR 10 Days #20 cap 02/08/22 Unknown Rx Allergies Allergy/AdvReac Type Severity Reaction Status Date / Time No Known Allergies Allergy Verified 08/07/21 14:23 ED Dental HPI - General Chief complaint: Neck Pain/Injury Stated complaint: PAIN Source: patient Mode of arrival: Ambulatory Limitations: No Limitations - Related Data Home Medications Medication Instructions Recorded Confirmed Last Taken Meloxicam [Mobic] 7.5 mg PO BID 05/24/14 02/03/19 05/16/17 Quetiapine Fumarate [SEROquel XR] 600 mg PO QHS 05/24/14 05/17/17 05/16/17 Primidone [Mysoline] 250 mg PO BID 07/17/14 05/17/17 05/16/17 Tapentadol (Nf) [Nucynta (Nf)] 75 mg PO Q6H PRN 07/17/14 05/17/17 05/16/17 Docusate Sodium [Colace CAP] 100 mg PO QDAY 08/26/15 02/03/19 05/16/17 propranoloL [Inderal] 20 mg PO BID 05/17/17 05/17/17 05/16/17 Gabapentin Enacarbil [Horizant] 600 mg PO BID 02/03/19 02/03/19 Unknown Milnacipran HCl [Savella] 50 mg PO BID 02/03/19 02/03/19 Unknown Mirtazapine [Remeron 45mg TAB] 45 mg PO QHS 02/03/19 02/03/19 Unknown Vortioxetine Hydrobromide 20 mg PO QAM 02/03/19 02/03/19 Unknown [Trintellix] Previous Rx's Medication Instructions Recorded Last Taken Type Gabapentin Enacarbil [Horizant] 300 mg PO BID #60 tab-cap 05/17/17 Unknown Rx Mirtazapine [Remeron 15mg TAB] 45 mg PO QHS #15 tablet 02/09/19 Unknown Rx amLODIPine 10 mg PO QDAY #30 tablet 02/09/19 Unknown Rx Ondansetron [Zofran Odt] 4 mg PO Q8HR PRN #20 tab.rapdis 05/19/20 Unknown Rx levoFLOXacin [Levaquin] 750 mg PO QDAY #6 tablet 08/07/21 Unknown Rx Acetaminophen [Non-Aspirin Extra 500 mg PO Q6HR PRN #30 tablet 08/24/21 Unknown Rx Strength] Ibuprofen [Motrin] 400 mg PO Q8H PRN #30 tablet 08/24/21 Unknown Rx Metoclopramide [Reglan] 10 mg PO QID PRN #30 tablet 08/24/21 Unknown Rx Morphine Sulfate [Morphine Sulfate 7.5 mg PO Q6HR PRN #10 tablet 08/24/21 Unknown Rx IR] levoFLOXacin [Levaquin] 750 mg PO QDAY #9 tablet 08/24/21 Unknown Rx Amoxicillin/Potassium Clav 1 each PO BID 7 Days #14 01/11/22 Unknown Rx [Augmentin 875-125 Tablet] Chlorhexidine Mouthwash [Peridex] 15 ml MM BID #1 bottle 09/29/21 Unknown Rx Ibuprofen [Motrin 800 MG tab] 800 mg PO Q8HR PRN #30 tablet 09/29/21 Unknown Rx Sulfamethoxazole/Trimethoprim 1 each PO BID 10 Days #20 tab 02/08/22 Unknown Rx [Bactrim DS TAB] cephALEXin [Keflex] 500 mg PO Q12HR 10 Days #20 cap 02/08/22 Unknown Rx Allergies Allergy/AdvReac Type Severity Reaction Status Date / Time No Known Allergies Allergy Verified 08/07/21 14:23 ED Review of Systems ROS: Stated complaint: PAIN Other details as noted in HPI Constitutional: denies: chills, fever Eyes: denies: eye pain, eye discharge, vision change ENT: ear pain. denies: throat pain Respiratory: denies: cough, shortness of breath, wheezing Cardiovascular: denies: chest pain, palpitations Endocrine: no symptoms reported Gastrointestinal: denies: abdominal pain, nausea, diarrhea Genitourinary: denies: urgency, dysuria, discharge Musculoskeletal: denies: back pain, joint swelling, arthralgia Skin: denies: rash, lesions Neurological: denies: headache, weakness, paresthesias Psychiatric: denies: anxiety, depression Hematological/Lymphatic: denies: easy bleeding, easy bruising ED Past Medical Hx - Past Medical History Previous Medical History?: Yes Hx Congestive Heart Failure: No Hx Diabetes: No Hx Headaches / Migraines: Yes Hx Psychiatric Treatment: Yes (depression, bipolar) Hx Asthma: No Hx COPD: No 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 - Surgical History Past Surgical History?: Yes Hx Appendectomy: Yes Additional Surgical History: back surguries, previous discectomy - Social History Smoking Status: Never Smoker - Medications Home Medications: Home Medications Medication Instructions Recorded Confirmed Last Taken Type Meloxicam [Mobic] 7.5 mg PO BID 05/24/14 02/03/19 05/16/17 History Quetiapine Fumarate [SEROquel XR] 600 mg PO QHS 05/24/14 05/17/17 05/16/17 History Primidone [Mysoline] 250 mg PO BID 07/17/14 05/17/17 05/16/17 History Tapentadol (Nf) [Nucynta (Nf)] 75 mg PO Q6H PRN 07/17/14 05/17/17 05/16/17 History Docusate Sodium [Colace CAP] 100 mg PO QDAY 08/26/15 02/03/19 05/16/17 History Gabapentin Enacarbil [Horizant] 300 mg PO BID #60 tab-cap 05/17/17 Unknown Rx propranoloL [Inderal] 20 mg PO BID 05/17/17 05/17/17 05/16/17 History Gabapentin Enacarbil [Horizant] 600 mg PO BID 02/03/19 02/03/19 Unknown History Milnacipran HCl [Savella] 50 mg PO BID 02/03/19 02/03/19 Unknown History Mirtazapine [Remeron 45mg TAB] 45 mg PO QHS 02/03/19 02/03/19 Unknown History Vortioxetine Hydrobromide 20 mg PO QAM 02/03/19 02/03/19 Unknown History [Trintellix] Mirtazapine [Remeron 15mg TAB] 45 mg PO QHS #15 tablet 02/09/19 Unknown Rx amLODIPine 10 mg PO QDAY #30 tablet 02/09/19 Unknown Rx Ondansetron [Zofran Odt] 4 mg PO Q8HR PRN #20 tab.rapdis 05/19/20 Unknown Rx levoFLOXacin [Levaquin] 750 mg PO QDAY #6 tablet 08/07/21 Unknown Rx Acetaminophen [Non-Aspirin Extra 500 mg PO Q6HR PRN #30 tablet 08/24/21 Unknown Rx Strength] Ibuprofen [Motrin] 400 mg PO Q8H PRN #30 tablet 08/24/21 Unknown Rx Metoclopramide [Reglan] 10 mg PO QID PRN #30 tablet 08/24/21 Unknown Rx Morphine Sulfate [Morphine Sulfate 7.5 mg PO Q6HR PRN #10 tablet 08/24/21 Unknown Rx IR] levoFLOXacin [Levaquin] 750 mg PO QDAY #9 tablet 08/24/21 Unknown Rx Amoxicillin/Potassium Clav 1 each PO BID 7 Days #14 09/29/21 Unknown Rx [Augmentin 875-125 Tablet] Chlorhexidine Mouthwash [Peridex] 15 ml MM BID #1 bottle 09/29/21 Unknown Rx Ibuprofen [Motrin 800 MG tab] 800 mg PO Q8HR PRN #30 tablet 09/29/21 Unknown Rx Sulfamethoxazole/Trimethoprim 1 each PO BID 10 Days #20 tab 02/08/22 Unknown Rx [Bactrim DS TAB] cephALEXin [Keflex] 500 mg PO Q12HR 10 Days #20 cap 02/08/22 Unknown Rx ED Physical Exam - General Limitations: No Limitations General appearance: alert, in no apparent distress - Head Head exam: Present: atraumatic, normocephalic - Eye Eye exam: Present: normal appearance - ENT ENT exam: Present: mucous membranes moist - Expanded ENT Exam Expanded Ear exam: Absent: auricular hematoma, auricular trauma - Neck Neck exam: Present: normal inspection - Respiratory Respiratory exam: Present: normal lung sounds bilaterally. Absent: respiratory distress - Cardiovascular Cardiovascular Exam: Present: regular rate, normal rhythm. Absent: systolic murmur, diastolic murmur, rubs, gallop - GI/Abdominal GI/Abdominal exam: Present: soft, normal bowel sounds - Extremities Exam Extremities exam: Present: normal inspection - Back Exam Back exam: Present: normal inspection - Neurological Exam Neurological exam: Present: alert, oriented X3 - Psychiatric Psychiatric exam: Present: normal affect, normal mood - Skin Skin exam: Present: warm, dry, intact, normal color. 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 Patient states that she awakened through the night and felt as though she may have bitten by an insect. Patient states that she awakened this morning with her left ear swollen and painful to touch. Patient denies any trauma. Patient denies any recent dental work. Patient denies any prior treatment to arrival. Patient is alert and oriented x3. No acute distress noted. No ill appearance noted. Patient states pain is a current 3 out of 10. She denies any headache. Physical examination patient has moderate swelling of the left helix. Rechecked the patient is resting quietly quietly and comfortable and feeling better. I discussed the results of diagnostic study, my clinical impression and the plan for further treatment with the patient. Patient agrees with plan and discharge at this present time. All question addressed. I have given the patient instruction regarding a diagnosis ,expectation ,follow- up and return precaution. I explained to the patient that emergent condition may arise and to return to the ED for new worsen and any new persisting condition. I have explained the importance of following up with the primary care physician or referral physician listed below has instructed. The patient verbalized understanding of discharge instruction. Critical care attestation.: If time is entered above; I have spent that time in minutes in the direct care of this critically ill patient, excluding procedure time. ED Disposition Clinical Impression: Cellulitis Qualifiers: Site of cellulitis: other site Qualified Code(s): L03.818 - Cellulitis of other sites Disposition: HOME / SELF CARE / HOMELESS Is pt being admited?: No Does the pt Need Aspirin: No Condition: Stable Instructions: Cellulitis, Adult, [id number] Additional Instructions: Take medication as prescribed Return to the ED for any worsening symptom Prescriptions: Sulfamethoxazole/Trimethoprim [Bactrim DS TAB] 1 each PO BID 10 Days #20 tab cephALEXin [Keflex] 500 mg PO Q12HR 10 Days #20 cap Referrals: [facility] [Provider Group] - 3-5 Days Time of Disposition: 14:15 Print Language: UKRA[place]
[2022-02-08 14:38] VITALS: BP 130/90
== END 2022-02-08 15:00 | disposition home or self-care (01) ==
LOC: ED 10:08
DX: L03.90 Cellulitis, unspecified (principal); G43.909 Migraine, unspecified, not intractable, without status migrainosus; F31.9 Bipolar disorder, unspecified; Z98.890 Other specified postprocedural states; Z79.899 Other long term (current) drug therapy
CPT/HCPCS: 99282